=== PATIENT | female | born 1975 | race Caucasian/White ===

== ENCOUNTER 2020-07-04 13:07 | Emergency (ER) | payer SELFPAY ==
[2020-07-04 13:16] VITALS: BP 135/81; PULSE 84; RESP 14; TEMP 36.8; O2SAT 98
--- NOTE | 2020-07-04 13:32 | ED.DENTAL ---
HPI - Dental/Oral General Chief complaint: Dental/Oral Stated complaint: Dental/Ear Time Seen by Provider: 07/04/20 13:28 Source: patient and RN notes reviewed Mode of arrival: ambulatory Limitations: no limitations History of Present Illness HPI Narrative: Patient presents today complaining of right lower dental pain x2 days. This tooth has been broken for some time the tooth is missing. Currently rates her pain 7/10 and has been taking ibuprofen and using Anbesol without much relief. She does not currently have a dentist. MD Complaint: tooth pain Related Data Home Medications Medication Instructions Recorded Confirmed albuterol sulfate 2 puff INHALATION QID PRN 07/04/20 07/04/20 citalopram 20 mg PO DAILY 07/04/20 07/04/20 hydrochlorothiazide 25 mg PO DAILY 07/04/20 07/04/20 Allergies Allergy/AdvReac Type Severity Reaction Status Date / Time Penicillins Allergy Unknown Difficulty Verified 07/04/20 13:25 Breathing Review of Systems Review of Systems: Narrative: CONSTITUTIONAL: Denies body aches, fever, chills, or sweats. EYES: Denies visual changes, redness, or discharge. ENT: Denies rhinorrhea, congestion, sore throat, or otalgia.+ Dental pain CARDIOVASCULAR: Denies chest pain, palpitations, or edema. RESPIRATORY: Denies cough or dyspnea. GASTROINTESTINAL: Denies abdominal pain, nausea, vomiting, or diarrhea. GENITOURINARY: Denies dysuria or hematuria. SKIN: Denies rash, itching, or wounds. MUSCULOSKELETAL: Denies back pain, joint pain, or myalgia. NEUROLOGIC: Denies headache, numbness, tingling, or weakness. PSYCH: Denies depression or anxiety. [facility] Family History Family History (Updated 06/14/16 @ 23:19 by DOCTOR UNKNOWN) Mother Family history of diabetes mellitus in first degree relative Grandparent Diabetes mellitus Social History Social History Alcohol intake: never Comments At time of signature, I have reviewed and agree with nursing past medical, surgical, social and family history unless otherwise noted. Please see nursing chart for further information. There is no relevant family history pertinent to the presenting complaint Exam Narrative: Exam Narrative: GENERAL: Well-appearing, well-nourished, and in no acute distress. HEAD: Normocephalic, atraumatic. EYES: EOMI. No redness or drainage. Conjunctivae normal. ENT: Mucous membranes pink and moist. Tooth #30 is black in color and the posterior half is missing. No obvious periapical abscess noted. NECK: Normal AROM. Supple. No lymphadenopathy. CHEST: No respiratory distress. EXTREMITIES: Normal range of motion. No edema. SKIN: Warm, dry, no rash. Capillary refill normal. Normal skin turgor. NEURO: No focal deficits. Alert and oriented x3. Gait steady. PSYCH: Normal affect. No signs of depression or anxiety. Course Course Emergency Course: Patient states that she is allergic to high-dose penicillin, but has taken amoxicillin in the past without issue Vital Signs Vital signs: Vital Signs Temperature 98.2 F 07/04/20 13:16 Pulse Rate 84 07/04/20 13:16 Respiratory Rate 14 07/04/20 13:16 Blood Pressure 135/81 07/04/20 13:16 Pulse Oximetry 98 07/04/20 13:16 Temperature 98.2 F 07/04/20 13:16 Pulse Rate 84 07/04/20 13:16 Respiratory Rate 14 07/04/20 13:16 Blood Pressure 135/81 07/04/20 13:16 Pulse Oximetry 98 07/04/20 13:16 Reviewed. Pt has been instructed to follow up with her PCP regarding her elevated blood pressure today. MDM - Dental/Oral Differential Diagnosis Differential diagnosis: Likely gingival abscess, dental caries, toothache, dental abscess and fracture of tooth Critical Care Time Critical Care Time Critical Care Time: No Discharge Plan Discharge Clinical Impression: Fracture of tooth Qualifiers: Encounter type: initial encounter Fracture type: open Qualified Code(s): S02.5XXB - Fracture of tooth (traumatic), initial encounter for open fracture Patient D
== END 2020-07-04 13:38 | disposition home or self-care (01) ==
PROVIDERS: Emergency Provider Nurse Practitioner
DX: S02.5XXA Fracture of tooth (traumatic), initial encounter for closed fracture (principal); X58.XXXA Exposure to other specified factors, initial encounter; J45.909 Unspecified asthma, uncomplicated; K21.9 Gastro-esophageal reflux disease without esophagitis; M06.9 Rheumatoid arthritis, unspecified; F41.9 Anxiety disorder, unspecified; F32.9 Major depressive disorder, single episode, unspecified
CPT/HCPCS: 99213; G0463

== ENCOUNTER 2020-11-17 09:40 | Emergency (ER) | payer OTHER, SELFPAY ==
--- NOTE | ~2020-11-17 | CT_ITS ---
EXAMINATION: CTA chest PE protocol DATE: 11/17/2020 11:53 INDICATION: COVID positive. Left-sided chest pain and dyspnea. TECHNIQUE: Computed tomography (CT) pulmonary angiogram of the chest was performed with 100 mL Omnipa que-350 intravenous contrast. Additional 3D reconstructions utilizing coronal maximum intensity proje ction (MIP) were performed. Automated exposure control and iterative reconstruction technique were em ployed. The dose-length product was 789.06 mGy-cm. COMPARISON: None FINDINGS: Excellent contrast opacification of the pulmonary arteries. There is mild streak artifact from dense contrast in the superior vena cava and right atrium. Minimal scattered respiratory motion artifact wh ich does not significantly limit evaluation. No pulmonary embolism. Chronic mild atelectasis/scarring in the small right middle lobe. No pneumonia, pulmonary edema, pleural effusion or pneumothorax. Sma ll calcified right apical nodule consistent with old granulomatous disease. Heart size is normal. No pericardial effusion. Thoracic aorta is normal in caliber with no dissection. No pathologically enlar ged thoracic lymphadenopathy. Visualized upper abdomen is unremarkable. Mild thoracic spondylosis. IMPRESSION: 1. No pulmonary embolism or other acute cardiopulmonary disease. Reviewed, dictated and finalized at location A. OR ENGINEERING TECHNICIAN
--- NOTE | ~2020-11-17 | XR_ITS ---
EXAMINATION: XR chest 2V DATE: 11/17/2020 10:17 INDICATION: Chest pain and left arm pain. TECHNIQUE: PA and lateral views of the chest were obtained. COMPARISON: None FINDINGS: The lungs are clear with no focal airspace opacities, pulmonary edema, pleural effusion or pneumothor ax. The cardiomediastinal silhouette is normal. Mild thoracic spondylosis. IMPRESSION: 1. No acute cardiopulmonary disease. Reviewed, dictated and finalized at location A. TAL ARTIST
--- NOTE | ~2020-11-17 | XR_ITS ---
EXAMINATION: XR shoulder LT min 2V DATE: 11/17/2020 10:47 INDICATION: Left shoulder pain radiating down the left arm TECHNIQUE: AP internally and externally rotated, AP oblique externally rotated and transscapular Y vi ews of the left shoulder were obtained. COMPARISON: None FINDINGS: Normal alignment. No fracture. Glenohumeral joint is normal. Acromioclavicular joint is normal. Smal l amorphous calcifications at the junction of the middle and posterior facets of the greater tuberosi ty consistent with infraspinatus calcific tendinitis. Visualized portions of the lungs are clear. IMPRESSION: Left infraspinatus calcific tendinitis. Reviewed, dictated and finalized at location A. E SORTER
[2020-11-17 09:47] VITALS: BP 152/86; PULSE 97; RESP 18; TEMP 36.2; O2SAT 98
[2020-11-17 09:52] VITALS: BP 139/97; PULSE 94; RESP 15; O2SAT 99
--- NOTE | 2020-11-17 09:52 | ECG_ITS ---
Measurements Intervals Carmen Rate: 80 P: 63 VA: 132 QRS: 37 QRSD: 88 T: 40 QT: 372 QTc: 430 Interpretive Statements SINUS RHYTHM INCOMPLETE RIGHT BUNDLE BRANCH BLOCK BORDERLINE ECG Electronically Signed On 11-17-2020 10:03:25 CATTLE BROKER by Solitario Lam D.O.
--- NOTE | 2020-11-17 09:54 | ED.UPPEXIN ---
HPI - Extremity Injury (Upper) General Chief Complaint: Extremity Injury, Upper Stated Complaint: left chest/ arm pain Time Seen by Provider: 11/17/20 09:54 Source: patient Mode of arrival: ambulatory Limitations: no limitations History of Present Illness HPI narrative: Patient is a 45-year-old female with a history of rheumatoid arthritis and asthma who presents for evaluation of left-sided chest pain, shoulder pain and shortness of breath. Patient states that her pain in her left chest and shoulder began last night while she was out to dinner at a restaurant. She reports some radiation of pain to the back. She has had associated shortness of breath since Covid infection October 23. She was never hospitalized for any of her symptoms are recovered after approximately 11 days time. Patient states she deals with intermittent dyspnea on a daily basis. She denies central chest pain. She does report report that she recently has been getting in and out of her 's truck and thought that could have exacerbated her shoulder pain but did not have pain until last night at dinner. She denies any numbness in her left hand but does report a tingling sensation. The pain radiates into her left arm. No history of sudden cardiac in the family. Positive family history of coronary artery disease. Patient has never had any diagnosed heart problems. She denies current palpitations, no leg or calf edema. Related Data Home Medications Medication Instructions Recorded Confirmed citalopram 20 mg PO DAILY 07/04/20 07/04/20 hydrochlorothiazide 25 mg PO DAILY 07/04/20 07/04/20 buspirone mg 11/17/20 sulfamethoxazole-trimethoprim tablet 11/17/20 Allergies Allergy/AdvReac Type Severity Reaction Status Date / Time Penicillins Allergy Unknown Difficulty Verified 11/17/20 09:49 Breathing Review of Systems Review of Systems: Narrative: CONSTITUTIONAL: Denies fever ENT: Denies rhinorrhea, congestion, sore throat, or otalgia. CARDIOVASCULAR: Reports left-sided chest pain, palpitations RESPIRATORY: Reports dry cough, reports shortness of breath GASTROINTESTINAL: Denies abdominal pain, nausea, vomiting, or diarrhea. GENITOURINARY: Denies dysuria or hematuria. SKIN: Denies rash or itching. MUSCULOSKELETAL: Denies back pain, reports left shoulder pain NEUROLOGIC: Denies headache, numbness, or weakness. [facility] Past Medical History Medical History Asthma Rheumatoid arthritis Surgical History Surgical History H/O tubal ligation H/O: hysterectomy Family History Family History (Updated 06/14/16 @ 23:19 by DOCTOR UNKNOWN) Mother Family history of diabetes mellitus in first degree relative Grandparent Diabetes mellitus Social History Social History Alcohol intake: never Gender identity (if verbalized by the patient): Female Exam Narrative: Exam Narrative: GENERAL: Awake, alert, conversant HEAD: Normocephalic, atraumatic. EYES: PERRLA and EOMI. ENT: Nares clear, no rhinorrhea or epistaxis. Mucous membranes moist. NECK: Supple. No cervical midline tenderness. CHEST: No respiratory distress, breathing even and non labored, mild reproducible left-sided chest wall tenderness HEART: Regular rate, sinus rhythm ABDOMEN:Non distended, non tender EXTREMITIES: Normal range of motion. No edema. Pain with abduction and and internal rotation of the left shoulder without limitation. Intact sensation over the deltoid. Medical Office Administrator strength out of 5. Radial pulse 2+, intact sensation median, ulnar, radial nerve distribution. No deformity or erythema. SKIN: Warm, dry, no rash. NEURO:No focal deficits. Alert and oriented x3 Course Vital Signs Vital signs: Vital Signs Temperature 36.2 C L 11/17/20 09:47 Pulse Rate 97 11/17/20 09:47 Respiratory Rate 18 11/17/20 09:
[2020-11-17] MEDS: ASPIRIN 81 MG CHEWABLE TABLET 324 MG PO (10:09)
[2020-11-17 10:37] LABS: Basophils Absolute Auto 0.1 K/mm3 (0.0-0.1); Basophils Percent Auto 0.5 % (0.2-1.2); Eosinophils Absolute Auto 0.2 K/mm3 (0-0.3); Eosinophils Percent Auto 1.3 % (0-4.4); Hematocrit 39.5 % (37.0-47.0); Hemoglobin 13.4 g/dL (12.0-15.0); Immature Granulocyte Absolute 0.13 K/mm3 (0.00-0.031); Immature Granulocyte Percent A 1.1 % (0-0.5); Lymphocytes Percent Auto 18.5 % (18.3-44.2); Mean Corpuscular HGB Conc 33.9 g/dl (32-36); Mean Corpuscular Hemoglobin 29.6 pg (26-34); Mean Corpuscular Volume 87.4 fl (80-100); Mean Platelet Volume 9.1 fl (7.4-10.4); Monocytes Absolute Auto 0.7 K/mm3 (0.1-0.6); Monocytes Percent Auto 5.7 % (2.6-8.5); Neutrophils Absolute Auto 8.3 K/mm3 (1.3-6.7); Neutrophils Percent Auto 72.9 % (45.5-73.1); Platelet Count Result 353 k/mm3 (150-375); Red Blood Count 4.52 M/mm3 (4.2-5.4); Red Cell Distribution Width 12.9 % (11.5-14.5); White Blood Count 11.4 K/mm3 (4.5-10.0)
[2020-11-17 10:45] LABS: Chloride 105 mmol/L (98-107)
[2020-11-17 10:46] LABS: INR 0.9; Prothrombin Time 12.5 Seconds (11.1-14.7)
[2020-11-17 10:47] LABS: Partial Thromboplastin Time 29.7 SECONDS (22.3-36.8)
[2020-11-17 11:00] LABS: Troponin I < 0.012 ng/mL (0.000-0.034)
[2020-11-17 11:04] LABS: Anion Gap 10 mmol/L (8-16); Blood Urea Nitrogen 14 mg/dL (7-17); Calcium 9.1 mg/dL (8.4-10.2); Carbon Dioxide 23 mmol/L (22-30); Estimated CRCL calculation 106 ml/min; Estimated Glomerular Filt Rate > 60; Glucose 123 mg/dL (65-105); Sodium 138 mmol/L (137-145)
[2020-11-17 11:12] VITALS: BP 124/87; PULSE 80; RESP 18; O2SAT 98
[2020-11-17] MEDS: oxyCODONE/ACETAMINOPHEN (*CRX) 5-325 MG TABLET 1 TABLET PO (11:12)
[2020-11-17 12:38] VITALS: BP 134/72; PULSE 82; RESP 15; O2SAT 100
[2020-11-17 13:21] VITALS: BP 118/70; PULSE 73; RESP 18; O2SAT 98
== END 2020-11-17 13:22 | disposition home or self-care (01) ==
PROVIDERS: Emergency Provider Emergency Medicine
DX: M75.32 Calcific tendinitis of left shoulder (principal); R07.9 Chest pain, unspecified; M06.9 Rheumatoid arthritis, unspecified; J45.909 Unspecified asthma, uncomplicated
CPT/HCPCS: 36415; 71046; 71275; 73030; 80048; 84484; 85025; 85610; 85730; 93005; 99284; A9270; Q9967

== ENCOUNTER 2021-04-04 18:44 | Emergency (ER) | payer OTHER, SELFPAY ==
[2021-04-04 18:49] VITALS: BP 147/68; PULSE 82; RESP 16; TEMP 36.5; O2SAT 98
--- NOTE | 2021-04-04 18:49 | ED.FEMALEGU ---
HPI - Female Genitourinary General Chief complaint: Urogenital-Female Stated complaint: Poss kidney infection Time Seen by Provider: 04/04/21 18:49 Source: patient and RN notes reviewed History of Present Illness HPI Narrative: Patient is a 46-year-old female who presents the urgent care with complaints of a possible UTI. Patient states that she has had a couple UTIs since being diagnosed with Covid, her last one being approximately 2 months ago. Patient states that she has been on Bactrim as well as Macrobid. States that she has been having some right-sided low back pain for approximately 4 days which put her to her knees the other day while at [employer] carrying some water . Patient states that she is also had some nausea today without vomiting. Reports of urinary urgency, suprapubic pressure and radiating right flank pain. Patient denies of any fever, abdominal pain or vomiting. Patient does have a history of kidney stones. Patient states she has been using ibuprofen and Biofreeze patches to the back. No other acute complaints. No acute distress noted. Patient aware of the plan of care. Some parts of this dictation were generated by voice recognition software and may contain typographical and/or grammatical inaccuracies. Related Data Home Medications Medication Instructions Recorded Confirmed citalopram 20 mg PO DAILY 07/04/20 04/04/21 hydrochlorothiazide 25 mg PO DAILY 07/04/20 04/04/21 buspirone 5 mg PO DAILY 11/17/20 04/04/21 albuterol sulfate 2 puff INHALATION Q6H PRN 04/04/21 04/04/21 pantoprazole 40 mg PO DAILY 04/04/21 04/04/21 Allergies Allergy/AdvReac Type Severity Reaction Status Date / Time Penicillins Allergy Unknown Difficulty Verified 04/04/21 18:55 Breathing Review of Systems Review of Systems: Narrative: CONSTITUTIONAL: Denies fever, chills, or sweats. EYES: Denies visual changes, redness, or discharge. ENT: Denies rhinorrhea, congestion, sore throat, or otalgia. CARDIOVASCULAR: Denies chest pain, palpitations, or edema. RESPIRATORY: Denies cough or dyspnea. GASTROINTESTINAL: Reports of nausea without vomiting, diarrhea or abdominal pain GENITOURINARY: Reports of urinary urgency and suprapubic pressure SKIN: Denies rash or itching. MUSCULOSKELETAL: Reports of right sided low back and flank pain NEUROLOGIC: Denies headache, numbness, or weakness. All other systems reviewed are negative, except as documented in HPI. [facility] Past Medical History Medical History Asthma Rheumatoid arthritis Surgical History Surgical History H/O tubal ligation H/O: hysterectomy Family History Family History (Updated 06/14/16 @ 23:19 by DOCTOR UNKNOWN) Mother Family history of diabetes mellitus in first degree relative Grandparent Diabetes mellitus Social History Social History Alcohol intake: never Gender identity (if verbalized by the patient): Female Comments At the time of my signature, I reviewed and agree with the nursing past medical, surgical, social, and family history. There is no relevant family history pertinent to the patient complaint. Exam Narrative: Exam Narrative: GENERAL: This is a well-nourished, well-developed patient, in no apparent distress. HEAD: normocephalic, atraumatic. EYES: PERRL. Sclera clear/white. Vision is grossly intact. EARS: External ears normal NOSE: External nose normal with no obvious nasal discharge, nares without redness, no rhinorrhea. THROAT: Mucous membranes moist NECK: Neck supple, CARDIOVASCULAR: Regular rate and rhythm without murmurs, gallops, or rubs. RESPIRATORY: Clear to auscultation. Breath sounds equal bilaterally. No wheezes, rales, or rhonchi. GASTROINTESTINAL: Abdomen soft, mild suprapubic tenderness,, nondistended. Bowel sounds are active. SKIN: warm, intact with no s
== END 2021-04-04 19:15 | disposition home or self-care (01) ==
PROVIDERS: Emergency Provider Nurse Practitioner Family; PCP Internal Medicine
DX: R35.0 Frequency of micturition (principal); R10.9 Unspecified abdominal pain; J45.909 Unspecified asthma, uncomplicated; M06.9 Rheumatoid arthritis, unspecified; K21.9 Gastro-esophageal reflux disease without esophagitis; F41.9 Anxiety disorder, unspecified; F32.9 Major depressive disorder, single episode, unspecified
CPT/HCPCS: 81003; 99213; G0463

== ENCOUNTER 2021-10-29 17:10 | Emergency (ER) | payer OTHER, SELFPAY ==
--- NOTE | ~2021-10-29 | XR_ITS ---
EXAMINATION: XR chest 2V 10/29/2021 17:45 INDICATION: Chest pain PROCEDURE: 2 view chest COMPARISON: 11/17/2020 FINDINGS: The lungs are clear. The cardiomediastinal silhouette is within normal limits. There are no pleural effusions. There is no pneumothorax suspected. IMPRESSION: 1: NO ACUTE CARDIOPULMONARY DISEASE. Reviewed, dictated and finalized at location A. MEASURER
[2021-10-29 17:18] VITALS: BP 129/75; PULSE 80; RESP 20; TEMP 36.7; O2SAT 97
--- NOTE | 2021-10-29 18:01 | ED.URI ---
HPI - URI/Sore Throat General Chief Complaint: Upper Respiratory Infection Stated Complaint: Chest Congestion Time Seen by Provider: 10/29/21 17:54 Source: patient and RN notes reviewed Mode of arrival: ambulatory Limitations: no limitations History of Present Illness HPI Narrative: Patient presents today complaining of a 3-week history of productive cough, wheezing, intermittent shortness of breath, nasal congestion, sinus pressure, postnasal drip, occasional chills. Denies fever. History of asthma and has been using her nebulizer treatments and Mucinex at home without much relief. 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 She was tested today and was negative. MD elicited complaint: cough and nasal congestion Related Data Home Medications Medication Instructions Recorded Confirmed hydrochlorothiazide 25 mg PO DAILY 07/04/20 10/29/21 buspirone 5 mg PO DAILY 11/17/20 10/29/21 albuterol sulfate 2 puff INHALATION Q6H PRN 04/04/21 10/29/21 budesonide-formoterol [Symbicort] 1 inh INHALATION DAILY 10/29/21 10/29/21 citalopram 40 mg PO DAILY 10/29/21 10/29/21 ergocalciferol (vitamin D2) 1,250 mcg PO [id number] 10/29/21 10/29/21 [Vitamin D2] omeprazole [Prilosec] 40 mg PO DAILY 10/29/21 10/29/21 Allergies Allergy/AdvReac Type Severity Reaction Status Date / Time Penicillins Allergy Intermediate Swelling Verified 10/29/21 17:33 Review of Systems Review of Systems: CONSTITUTIONAL: Denies body aches, fever, or sweats.+ Chills EYES: Denies visual changes, redness, or discharge. ENT: Denies rhinorrhea, sore throat, or otalgia.+ Congestion, postnasal drip, sinus pressure CARDIOVASCULAR: Denies chest pain, palpitations, or edema. RESPIRATORY: + Cough, breath, wheezing GASTROINTESTINAL: Denies abdominal pain, nausea, vomiting, or diarrhea. GENITOURINARY: Denies dysuria or hematuria. SKIN: Denies rash, itching, or wounds. MUSCULOSKELETAL: Denies back pain, joint pain, or myalgia. NEUROLOGIC: Denies headache, numbness, tingling, or weakness. PSYCH: Denies depression or anxiety. PMFSH Past Medical History Medical History Asthma Rheumatoid arthritis Surgical History Surgical History H/O tubal ligation H/O: hysterectomy Family History Family History Mother Family history of diabetes mellitus in first degree relative Grandparent Diabetes mellitus Social History Social History Alcohol intake: never Gender identity (if verbalized by the patient): Female Comments At time of signature, I have reviewed and agree with nursing past medical, surgical, social and family history unless otherwise noted. Please see nursing chart for further information. There is no relevant family history pertinent to the presenting complaint Exam Narrative: GENERAL: Well-appearing, well-nourished, and in no acute distress. HEAD: Normocephalic, atraumatic. EYES: EOMI. No redness or drainage. Conjunctivae normal. ENT: Mucous membranes pink and moist. Nares congested. No rhinorrhea. TMs normal bilaterally. Throat normal. Uvula midline. NECK: Normal AROM. Supple. No lymphadenopathy. CHEST: No respiratory distress. Clear to auscultation. HEART: Regular rate and rhythm. No murmur appreciated. Normal peripheral pulses. EXTREMITIES: Normal range of motion. No edema. SKIN: Warm, dry, no rash. Capillary refill normal. Normal skin turgor. NEURO: No focal deficits. Alert and oriented x3. Gait steady. PSYCH: Normal affect. No signs of depression or anxiety. Course Vital Signs Vital signs: Vital Signs Temperature 98.1 F 10/29/21 17:18 Pulse Rate 80 10/29/21 17:18 Respiratory Rate 20 10/29/21 17:18 Blood Pressure 129/75 10/29/21 17:18 Pulse Oximetry 97 1
== END 2021-10-29 18:10 | disposition home or self-care (01) ==
PROVIDERS: Emergency Provider Nurse Practitioner
DX: J01.90 Acute sinusitis, unspecified (principal); J45.901 Unspecified asthma with (acute) exacerbation
CPT/HCPCS: 71046; 99213; G0463

== ENCOUNTER 2023-11-03 00:08 | Emergency (ER) | payer OTHER, SELFPAY ==
[2023-11-03 00:12] VITALS: BP 144/76; PULSE 73; RESP 16; TEMP 37.2; O2SAT 98
--- NOTE | 2023-11-03 00:51 | PC.NURSE ---
pt called for room, no answer
--- NOTE | 2023-11-03 01:37 | PC.NURSE ---
pt called for room, no answer
== END 2023-11-03 02:12 | disposition left against medical advice (07) ==
LOC: ANHED 02:03
DX: Z53.21 Procedure and treatment not carried out due to patient leaving prior to being seen by health care provider (principal)
CPT/HCPCS: 99199

== ENCOUNTER 2024-05-02 09:48 | Emergency (ER) | payer SELFPAY ==
[2024-05-02 09:54] VITALS: BP 132/74; PULSE 76; RESP 28; TEMP 36.1; O2SAT 97
--- NOTE | 2024-05-02 10:04 | ED.GENADULT ---
HPI - General Adult General Chief complaint: Upper Respiratory Infection Stated complaint: sinus/back pain Time Seen by Provider: 05/02/24 10:04 Source: patient, RN notes reviewed and old records reviewed Mode of arrival: ambulatory Limitations: no limitations History of Present Illness HPI narrative: 49 year old female who presents to [facility] care with complaints of 3 weeks of sinus congestion,sinus pressure, productive cough, headache,some lower back pain with urinary frequency with concern for UTI also starting on Friday 2 days ago. Patient reports that she was treated previously week ago Friday with a Z pack and low dose steroid without any improvement in her symptoms.Patient reports that she has history of asthma denies ay acute dyspnea has used her nebulizer and Inhaler. Patient states that she feels hoarse and he has persistent headache today MD complaint: sinus congestion drainage productive cough, headache back pain with concern Onset (ago): week(s) (initially started 3 weeks ago sinus problems and cough, 2 days for low back pain and frequency of urination.) Severity: moderate Quality: aching and dull Treatments prior to arrival: other (Z pack medrol dose pack, inhaler nebulizer,Flonase, Netti pot, Robitussin Tylenol ) Related Data Home Medications Medication Instructions Recorded Confirmed hydrochlorothiazide 25 mg tablet 25 mg PO DAILY 07/04/20 05/02/24 buspirone 5 mg tablet 5 mg PO DAILY 11/17/20 05/02/24 albuterol sulfate 90 mcg/actuation 2 puff inhalation Q6H PRN 04/04/21 05/02/24 aerosol inhaler Shortness Of Breath Or Wheezing budesonide-formoterol HFA 80 1 inh inhalation DAILY 10/29/21 05/02/24 mcg-4.5 mcg/actuation aerosol inhaler (Symbicort) citalopram 40 mg tablet 40 mg PO DAILY 10/29/21 05/02/24 ergocalciferol (vitamin D2) 1,250 1,250 mcg PO [id number] 10/29/21 05/02/24 mcg (50,000 unit) capsule (Vitamin D2) omeprazole 40 mg capsule,delayed 40 mg PO DAILY 10/29/21 05/02/24 release benzonatate 100 mg capsule mg PO 05/02/24 phentermine 37.5 mg tablet 37.5 mg PO DAILY 05/02/24 05/02/24 Allergies Allergy/AdvReac Type Severity Reaction Status Date / Time Penicillins Allergy Intermediate Swelling Verified 10/29/21 17:33 Review of Systems Review of Systems: CONSTITUTIONAL: Denies fever, chills, or sweats. CARDIOVASCULAR: Denies chest pain, palpitations, or edema. RESPIRATORY: reports cough denies any acute dyspnea., sinus congestion and drainage. GASTROINTESTINAL: Denies abdominal pain, nausea, vomiting, or diarrhea. GENITOURINARY: Reports dysuria, frequency, urgency. Denies flank pain or hematuria. SKIN: Denies rash or itching. MUSCULOSKELETAL: Reports back pain or myalgia. Denies CVA tenderness NEUROLOGIC: Reports headache All systems reviewed & are unremarkable except as noted in HPI and below PMFSH Past Medical History Medical History (Updated 05/03/24 @ 16:23 by Susie Ulloa NP) Anxiety and depression Asthma Fracture of left foot Kidney stone Nasal polyps Panic attacks Rheumatoid arthritis Surgical History Surgical History H/O tubal ligation H/O: hysterectomy S/P left knee arthroscopy Family History Family History Mother Family history of diabetes mellitus in first degree relative Grandparent Diabetes mellitus Social History Social History Alcohol intake: never Gender identity (if verbalized by the patient): Female Comments At time of signature, agree with nursing past medical, surgical, social and family history. There is no relevant family history pertinent to the presenting complaint Exam Narrative: GENERAL: Well-appearing, well-nourished, and in no acute distress. HEAD: Normocephalic, atraumatic. NECK: Supple.no lymphadenopathy CHEST: Clear to auscultation. No respiratory distress
== END 2024-05-02 10:35 | disposition home or self-care (01) ==
PROVIDERS: Emergency Provider Registered Nurse; PCP Hospitalist
DX: J32.9 Chronic sinusitis, unspecified (principal); R05.9 Cough, unspecified; M54.50 Low back pain, unspecified; R35.0 Frequency of micturition; J45.909 Unspecified asthma, uncomplicated; M06.9 Rheumatoid arthritis, unspecified; F41.9 Anxiety disorder, unspecified; F32.A Depression, unspecified
CPT/HCPCS: 81003; 87086; 99213; G0463

== ENCOUNTER 2024-08-17 21:43 | Emergency (ER) | payer OTHER, SELFPAY ==
--- NOTE | ~2024-08-17 | XR_ITS ---
AP and lateral views of the neck CLINICAL HISTORY: Ingested foreign body FINDINGS: No fracture or subluxation seen in the cervical spine. There is advanced degenerative disc narrowing at C5-C6. No prevertebral soft tissues along. Visualized air column unremarkable. No radiop aque foreign body seen. IMPRESSION: No radiopaque foreign body seen. Reviewed, dictated and finalized at [facility].
[2024-08-17 21:47] VITALS: BP 148/84; PULSE 77; RESP 14; TEMP 36.1; O2SAT 98
--- NOTE | 2024-08-18 02:03 | ED.GENADULT ---
HPI - General Adult General Chief complaint: Unspecified Stated complaint: chipped gel fingernail in throat Time Seen by Provider: 08/18/24 01:26 History of Present Illness HPI narrative: 49-year-old female presents to emergency department for foreign body in her throat. Patient states earlier today she was biting her nails that have gel on them when she bit a part of the gel off and swallowed it. She states she has felt a foreign body in her throat since. She denies difficulty breathing or swallowing. States she does not have a foreign body sensation in her chest. She states she attempted to drink at 32 oz of soda and hopes that it would resolve her issue but did not. She denies drooling. Related Data Home Medications Medication Instructions Recorded Confirmed hydrochlorothiazide 25 mg tablet 25 mg PO DAILY 07/04/20 05/02/24 buspirone 5 mg tablet 5 mg PO DAILY 11/17/20 05/02/24 albuterol sulfate 90 mcg/actuation 2 puff inhalation Q6H PRN 04/04/21 05/02/24 aerosol inhaler Shortness Of Breath Or Wheezing budesonide-formoterol HFA 80 1 inh inhalation DAILY 10/29/21 05/02/24 mcg-4.5 mcg/actuation aerosol inhaler (Symbicort) citalopram 40 mg tablet 40 mg PO DAILY 10/29/21 05/02/24 ergocalciferol (vitamin D2) 1,250 1,250 mcg PO [id number] 10/29/21 05/02/24 mcg (50,000 unit) capsule (Vitamin D2) omeprazole 40 mg capsule,delayed 40 mg PO DAILY 10/29/21 05/02/24 release benzonatate 100 mg capsule mg PO 05/02/24 phentermine 37.5 mg tablet 37.5 mg PO DAILY 05/02/24 05/02/24 Allergies Allergy/AdvReac Type Severity Reaction Status Date / Time Penicillins Allergy Intermediate Swelling Verified 08/17/24 21:44 Review of Systems Review of Systems: All systems reviewed & are unremarkable except as noted in HPI and below PMFSH Past Medical History Medical History Anxiety and depression Asthma Fracture of left foot Kidney stone Nasal polyps Panic attacks Rheumatoid arthritis Surgical History Surgical History H/O tubal ligation H/O: hysterectomy S/P left knee arthroscopy Family History Family History Mother Family history of diabetes mellitus in first degree relative Grandparent Diabetes mellitus Social History Social History Alcohol intake: never Gender identity (if verbalized by the patient): Female Exam Narrative: GENERAL: Well-appearing, well-nourished, and in no acute distress. HEAD: Normocephalic, atraumatic. EYES: PERRLA and EOMI. ENT: Nares clear, no rhinorrhea or epistaxis. Mucous membranes moist. No foreign body visualized in the posterior pharynx. Patient is tolerating secretions NECK: Supple. CHEST: Clear to auscultation. No respiratory distress. HEART: Regular rate and rhythm. No murmur heard. Normal peripheral pulses. ABDOMEN: Soft, nontender, nondistended, normal active bowel sounds. EXTREMITIES: Normal range of motion. No edema. SKIN: Warm, dry, no rash. NEURO: No focal deficits. Alert and oriented x3 Course Vital Signs Vital signs: Vital Signs Temperature 97 F L 08/17/24 21:47 Pulse Rate 77 08/17/24 21:47 Respiratory Rate 14 08/17/24 21:47 Blood Pressure 148/84 H 08/17/24 21:47 Pulse Oximetry 98 08/17/24 21:47 Oxygen Delivery Room Air 08/17/24 21:47 Temperature 97 F L 08/17/24 21:47 Pulse Rate 77 08/17/24 21:47 Respiratory Rate 14 08/17/24 21:47 Blood Pressure 148/84 H 08/17/24 21:47 Pulse Oximetry 98 08/17/24 21:47 Oxygen Delivery Room Air 08/17/24 21:47 Medical Decision Making [facility] Narrative Medical decision making narrative: 49-year-old female presents to the emergency department with concerns for foreign body in her throat after she accidentally swallowed please per gel finger nail ear
[2024-08-18 02:16] VITALS: RESP 18; O2SAT 97
[2024-08-18 02:20] VITALS: BP 117/86; PULSE 83; RESP 20; O2SAT 98
== END 2024-08-18 02:22 | disposition home or self-care (01) ==
LOC: ANHED 08-18 02:13
PROVIDERS: Emergency Provider Physician Assistant; PCP Hospitalist
DX: R09.A2 Foreign body sensation, throat (principal); M06.9 Rheumatoid arthritis, unspecified; F41.9 Anxiety disorder, unspecified; F32.A Depression, unspecified; Z87.442 Personal history of urinary calculi; Z90.710 Acquired absence of both cervix and uterus
CPT/HCPCS: 70360; 99283

== ENCOUNTER 2024-11-06 01:02 | Emergency (ER) | payer OTHER, SELFPAY ==
--- NOTE | ~2024-11-06 | XR_ITS ---
EXAMINATION: XR chest 1V portable DATE: 11/06/2024 02:10 INDICATION: Upper respiratory infection. TECHNIQUE: A single frontal view of the chest was obtained. COMPARISON: Chest 2 views 10/29/2021 FINDINGS: There is no pneumonia, pleural effusion, or pneumothorax. The heart size is normal. IMPRESSION: 1. No acute cardiopulmonary disease. Reviewed, dictated and finalized at location A. [facility]
[2024-11-06 01:06] VITALS: BP 153/63; PULSE 96; RESP 15; TEMP 36.4; O2SAT 97
[2024-11-06 01:11] VITALS: RESP 18; O2SAT 97
[2024-11-06 01:13] VITALS: PULSE 100
--- NOTE | 2024-11-06 01:35 | ECG_ITS ---
Test Date: 2024-11-06 01:43:45 Measurements Intervals [place] Rate: 90 P: 69 SD: 136 QRS: 45 QRSD: 85 T: 49 QT: 370 QTc: 454 Interpretive Statements SINUS RHYTHM No previous ECG available for comparison Electronically Signed On 11-06-2024 07:41:46 WASH BOX OPERATOR by Kelli Monahan M.D.
--- NOTE | 2024-11-06 01:35 | PC.NURSE ---
ED MD Quintero verbally tates medication valium order can be IM.
--- NOTE | 2024-11-06 01:37 | ED_ITS ---
HPI - General Adult General Chief complaint: Unspecified Stated complaint: not really sure ; can't calm down, bp high Time Seen by Provider: 11/06/24 01:19 History of Present Illness HPI narrative: this is a 49-year-old female presenting ED with chief complaint of panic attack. Patient says she has been feeling unwell with viral symptoms for the last 3 days. Tonight when she got home she started to have worsening shortness of breath, increased anxiety confusion. she also notes that she has felt warm to touch.She then came to the hospital to be evaluated. When she arrived here she realized that she was having a panic attack. She is denying fevers chills chest pain or difficulty breathing. . No SI HI Related Data Home Medications ?Medication ?Instructions ?Recorded ?Confirmed ?Last Taken ?Type buspirone 5 mg tablet 5 mg PO DAILY 11/17/20 08/24/24 Unknown History albuterol sulfate 90 mcg/actuation 2 puff inhalation Q6H PRN 04/04/21 08/24/24 Unknown History aerosol inhaler Shortness Of Breath Or Wheezing budesonide-formoterol HFA 80 1 inh inhalation DAILY 10/29/21 08/24/24 Unknown History mcg-4.5 mcg/actuation aerosol inhaler (Symbicort) citalopram 40 mg tablet 40 mg PO DAILY 10/29/21 08/24/24 Unknown History ergocalciferol (vitamin D2) 1,250 1,250 mcg PO Q5GVDUR 10/29/21 08/24/24 Unknown History mcg (50,000 unit) capsule (Vitamin D2) Allergies Allergy/AdvReac Type Severity Reaction Status Date / Time Penicillins Allergy Intermediate Swelling Verified 08/24/24 15:16 [facility] Past Medical History Medical History Fracture of left foot Kidney stone Panic attacks Anxiety and depression Nasal polyps Rheumatoid arthritis Asthma Surgical History Surgical History S/P left knee arthroscopy H/O tubal ligation H/O: hysterectomy Family History Family History Mother Family history of diabetes mellitus in first degree relative Grandparent Diabetes mellitus Social History Social History Smoking status: Never smoker Alcohol intake: never Gender identity (if verbalized by the patient): Female Exam Narrative: APPEARANCE: No apparent distress. Head: atraumatic. EYES: EOMI, NOSE: Atraumatic NECK: Trachea midline RESPIRATORY: No increased rate of breathing, scattered rhonchi, CARDIOVASCULAR: slightly tachycardic ABDOMINAL: Non-distended soft nontender MUSCULOSKELETAl: No obvious deformities NEURO: Alert. Moving 4/4 extremities SKIN:: warm to touch PSYCHIATRIC: Normal affect Course Vital Signs Vital signs: Vital Signs Temperature 97.5 F L 11/06/24 01:06 Pulse Rate 96 11/06/24 01:06 Respiratory Rate 15 11/06/24 01:06 Blood Pressure 153/63 H 11/06/24 01:06 Pulse Oximetry 97 11/06/24 01:06 Oxygen Delivery Room Air 11/06/24 01:06 Temperature 97.5 F L 11/06/24 01:06 Pulse Rate 100 11/06/24 01:13 Respiratory Rate 18 11/06/24 01:11 Blood Pressure 153/63 H 11/06/24 01:06 Pulse Oximetry 97 11/06/24 01:11 Oxygen Delivery Room Air 11/06/24 01:06 Medical Decision Making [facility] Narrative Medical decision making narrative: -Course: 49-year-old female presenting with 3 days of respiratory symptoms as well as a panic attack. She received Valium her anxiety is resolved she is now resting comfortably. Chest x-ray showed some mild infiltrates in the right lower lobe and she has scattered rhonchi on exam. patient be prescribed a course of antibiotics to cover pneumonia. She is well appearing with stable vital signs in good candidate for outpatient management. She will be discharged follow-up with her primary care physician. Given return precautions. -DDX includes but is not limited to: Bronchitis, pneumonia, viral syndrome -Co-morbidities complicating care: asthma, anxiety Vital Signs Vital Signs: Vital Signs Temperature 97.5 F L 11/06/24 01:06 Pulse Rate 96 11/06/24 01:06 Respiratory Rate 15 11/06/24 01:06 Blood Pressure 153/63 H 11/06/24 01:06 Pulse Oximetry 97 11/06/24 01:06 Oxygen Delivery Room Air 11/06/24 01:06 Temperature 97.5 F L 11/06/24 01:06 Pulse Rate 100 11/06/24 01:13 Respiratory Rate 18 11/06/24 01:11 Blood Pressure 153/63 H 11/06/24 01:06 Pulse Oximetry 97 11/06/24 01:11 Oxygen Delivery Room Air 11/06/24 01:06 Lab Data Labs: Lab Results 11/06/24 Range/Units 01:44 Influenza A (RT-PCR) Negative (Negative) Influenza B (RT-PCR) Negative (Negative) RSV (RT-PCR) Negative (Negative) SARS-CoV-2 RNA (RT-PCR) Negative (Negative) Discharge Plan Discharge Clinical Impression: Panic attack, Pneumonia Patient Disposition: Home, Self-Care Condition: Stable Instructions: Antibiotic Form, Community Acquired Pneumonia (DC) Additional Instructions: You were seen in the ED respiratory symptoms any panic attack. Please take the antibiotics to cover for pneumonia. Please return if you develop chest pain, difficulty breathing or any new or worsening symptoms. Patient Language: Nepali Prescriptions: New levofloxacin 500 mg tablet 500 mg PO DAILY Qty: 10 0RF No Action citalopram 40 mg tablet 40 mg PO DAILY budesonide-formoterol [Symbicort] 80-4.5 mcg/actuation HFA aerosol inhaler 1 inh INHALATION DAILY ergocalciferol (vitamin D2) [Vitamin D2] 1,250 mcg (50,000 unit) Capsule 1,250 mcg PO [id number] albuterol sulfate [ProAir HFA] 90 mcg/actuation HFA aerosol inhaler 2 puff INHALATION Q4-6H PRN (Reason: shortness of breath or wheezing) Qty: 18 0RF albuterol sulfate 90 mcg/actuation HFA aerosol inhaler 2 puff INHALATION Q6H PRN (Reason: Shortness Of Breath Or Wheezing) omeprazole 40 mg capsule,delayed release(DR/EC) 40 mg PO DAILY Qty: 30 6RF buspirone 5 mg tablet 5 mg PO DAILY Follow-up/Referrals: Kirsty,MD Pillo [Primary Care Provider] -
[2024-11-06] MEDS: diazePAM INJ (*CRX) 10 MG/2 ML SYRINGE 5 MG IV PUSH (01:43)
--- NOTE | 2024-11-06 02:01 | PC.NURSE ---
Valium was given at 0143 IM (1 ml) in left deltoid. RipCode is not allowing me to chart medication administration at this time.
[2024-11-06 02:24] LABS: Influenza A QL RT-PCR Negative (Negative); Influenza B QL RT-PCR Negative (Negative); RSV RNA, RT-PCR Negative (Negative); SARS-CoV-2 RNA PCR Negative (Negative)
[2024-11-06] MEDS: ONDANSETRON HCL ODT 4 MG TABLET PO (03:13)
[2024-11-06 03:20] VITALS: BP 132/57; PULSE 82; RESP 19; O2SAT 98
--- OUTSIDE RECORDS SUMMARY | 2024-11-13 02:14 | XMS_ITS | Data Portability ---
Author Organization [facility] mariam Cande, [facility] IP Address [address] [place] [address] Assessment No assessment recorded. Plan of Treatment Reminders Order Date Submit Date Provider Last Modified By Organization Details Last Modified Time Details Appointments None recorded. Lab None recorded. Referral None recorded. Procedures None recorded. Surgeries None recorded. Imaging None recorded. Medication Orders ipratropium 0.5 mg-albutero l 3 mg (2.5 mg base)/3 mL nebulizatio n soln 2023 024 Not available 4 16:21:19 Solu-Medrol (PF) 125 mg/2 mL solution for injection 2023 024 [email or web address] Not available 4 16:21:20 ipratropium 0.5 mg-albutero l 3 mg (2.5 mg base)/3 mL nebulizatio n soln 2023 024 [place] [facility][id number], [address] [place], [place], [phone], 4 16:22:53 budesonide 0.5 mg/2 mL suspension for nebulizatio n 2023 024 [email or web address] [facility] #[id number], [facility] [place], [place], [phone], 4 16:21:20 prednisone 20 mg tablet 2023 024 [email or web address] [id number], [address], [place], [place], [phone], 16:21:20 Patient TargetsNo targets recorded. Patient Instructions Encounter Date Encounter Id Patient Instructions Last Modified By Organization Details Last Modified Time 05/22/2024 [id number] - Discussed medication regimen. - gave Solu-Medrol 125 mg at clinic. Patient tolerated well. - Discussed that if symptoms gets worse she needs to go to the ER for further evaluation. Discussed the symptoms got worse she would also be likely admitted to the hospital. - She is leaving to return home tomorrow. She lives in [place]. - discuss that she primarily has bronchitis. She has been on 2 antibiotic regimens. No crackling rales at this time. Wheezing noted only. Mild residual wheeze no radiation post nebulizer x2. Patient tolerated well and feels much improved. - RTC for follow up as needed for any concerns. [email or web address] Not available 05/22/2024 16:45:18 Reason for Referral None Reported. Problems Name Problem SNOMED Code Status Onset Date Resolution Date Notes Provider Name and Address Organization Details Recorded Time Cough 56346611 Active 05/22/20 24 Sinus congest ion, Mucus green/y ellow/t hick [facility] 05/22/2024 15:22:04 Problem Notes None recorded. Procedures Surgical History Date Name Laterality Status Provider Name and Address Organization Details Recorded Time 05/22/20 24 Nebulizer tx completed MATTHEW GRIGGS NP [address], [place], [address], [facility] 05/22/2024 16:44:54 Hysterectomy completed Mita Sorto RN [facility] 05/22/2024 15:18:59 Orthopedic Surgery completed Mita Sorto RN [facility] 05/22/2024 15:20:37 Imaging Results None recorded. Procedure Notes None recorded. Medical Equipment None Reported. Allergies No known drug allergies Medications Name Sig Start Date Stop Date Status Note LastModified by Organization Details LastModified Time doxycycline hyclate 100 mg capsule TAKE 1 CAPSULE BY MOUTH TWICE DAILY FOR 10 DAYS active Not Available Not Available No t Available ipratropium 0.5 mg-albuterol 3 mg (2.5 mg base)/3 mL nebulization soln USE 3 ML VIA NEBULIZER EVERY 4 HOURS NEEDED active Not Available Not Available No t Available citalopram 40 mg tablet Take 1 tablet every day by oral route. active Not Available Not Available No t Available azithromycin 250 mg tablet active Not Available Not Available Not Available fluconazole 150 mg tablet TAKE 1 TABLET BY MOUTH ONCE FOR 1 DOSE. MAY REPEAT IN 72 HOURS IF SIGNS/SYMPT OMS PERSIST active Not Available Not Available Not Available albuterol sulfate 1.25 mg/3 mL solution for nebulization Inhale 3 mL 3 times a day by inhalation route. active Not Available Not Available No t Available phenazopyrid ine 200 mg tablet TAKE 1 TABLET BY MOUTH THREE TIMES DAILY NEEDED FOR BLADDER SPASMS FOR UP TO 2 DAYS active Not Available Not Available No t Available prednisone 20 mg tablet Take 3 tablets daily x 3 days. Take 2 tablets daily x 3 days. Take 1 tablet daily x 3 days. active Not Available Not Available No t Available phentermine 37.5 mg tablet TAKE 1 TABLET BY MOUTH EVERY DAY active Not Available Not Available No t Available benzonatate 100 mg capsule TAKE 1 CAPSULE BY MOUTH EVERY MORNING FOR 4 WEEKS NEEDED active Not Available Not Available No t Available omeprazole 20 mg capsule,edgard yed release Take 1 capsule every day by oral route. active Not Available Not Available No t Available budesonide 0.5 mg/2 mL suspension for nebulization INHALE 2 ML TWICE DAILY BY NEBULIZATIO N ROUTE NEEDED active Not Available Not Available No t Available methylpredni solone 4 mg tablets in a dose pack FOLLOW PACKAGE DIRECTIONS active Not Available Not Available N ot Available albuterol sulfate HFA 90 mcg/actuatio n aerosol inhaler Inhale 2 puffs every 4 hours by inhalation route. active Not Available Not Available No t Available ondansetron 4 mg disintegrati ng tablet DISSOLVE 1 TABLET IN MOUTH EVERY 8 HOURS NEEDED FOR NAUSEA FOR VOMITING active Not Available Not Available No t Available doxycycline hyclate 100 mg tablet TAKE 1 TABLET BY MOUTH TWICE DAILY FOR 10 DAYS active Not Available Not Available No t Available nitrofuranto in monohydrate/ macrocrystal s 100 mg capsule TAKE 1 CAPSULE BY MOUTH TWICE DAILY FOR 5 DAYS active Not Available Not Available No t Available Solu-Medrol (PF) 125 mg/2 mL solution for injection Take 125 mg by injection route. 2023 active Not Available Not Available Not Avai lable Vitals Date Recorded Body height Body mass index (BMI) Body weight Body temperature Heart rate Respiratory rate Oxygen saturation Oxygen saturation in Arterial blood by Pulse oximetry Systolic blood pressure Diastolic blood pressure Provider Name and Address Organization Details Last Updated DateTime 4 167.64 cm 38.7 kg/m2 956943. 17 g 97.9 [degF] 83 /min 18 /min 95 % 95 % 129 mm[Hg] 76 mm[Hg] Mita Sorto RN [facility] 4 15:35:55 Social History None recorded. Functional Status None recorded. Mental Status None recorded. Family History Nothing Reported. Medical History No medical history recorded. Gynecological HistoryNo gynecological history recorded. Obstetrics History GPAL:G 0 P 0 0 0 0 Past Encounters Encounter ID Performer Location Encounter Start Date Encounter Closed Date Diagnosis/Indication Diagnosis SNOMED-CT Code Diagnosis ICD10 Code [id number] MATTHEW GRIGGS NP [facility] [facility] [address] [place] [address] 05/22/2024 14:40:47 05/22/2024 16:30:21 Acute bronchitis 35775069 J20.9 Moderate p ersistent asthma 640662401 J45.40 Health Concerns Section Related Observation LastModified by Organization Detai ls LastModified Time None Recorded Concern Status LastModified by Organization Details LastModified Time None Recorded Advance Directives Directive None Recorded Payers Encounter Date Sequence Insurance Name Policy Number Policy Mishra Covered Member ID Mishra Member ID Guarantor Name 05/22/2024 1 *SELF PAY* Rodger Massey Notes Date Note Type Note Provider Name and Address Organization Details Recorded Time 05/22/2024 text/html 49 yo female presents to clinic with c/o SOB, cough, and productive yellow and green sputum. Sx started 3 weeks ago. Tx with Z-thomas, Doxy, Medrol, and Prednisone. She completed Doxy 2 days ago but symptoms persist. She is here visiting. Leaves tomorrow. 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 She does have a PMH of asthma and has been using albuterol QID for 1 week. MATTHEW GRIGGS NP [address], [place], [address], [facility] 05/22/2024 16:45:38 OBGyn Episode No OBEpisode recorded.
--- OUTSIDE RECORDS SUMMARY | 2024-11-13 02:14 | XMS_ITS | Encounter Summary ---
Author Organization [facility] [employer] Care Team Providers Care Lawn And Garden Technician Name Role Phone Jemima Go MD Primary Care Provider [phone] Encounter Details Date Type Department Care Team (Latest Contact Info) Description 11/29/2020 Travel Social History Tobacco Use Types Packs/Day Years Used Date Smoking Tobacco: Never Smokeless Tobacco: Never Alcohol Use Standard Drinks/Week Comments No 0 (1 standard drink = 0.6 oz pur e alcohol) Comments No Sex and Gender Information Value Date Recorded Sex Assigned at Not on file Legal Sex Female 9:11 PM CDT Gender Identity Not on file Sexual Orientation Not on file COVID-19 Exposure Response Date Recorded In the last month, have you been in contact with someone who was confirmed or suspected to have Coronavirus / COVID-19? 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
--- OUTSIDE RECORDS SUMMARY | 2024-11-13 02:14 | XMS_ITS | Encounter Summary ---
Author Organization [facility] Address [address] [place] [address] Phone Care Team Providers Care Provisioning Analyst Name Role Phone Jemima Go MD Primary Care Provider [phone]- [phone] Reason for Visit * Reason Comments Eye Swelling Encounter Details Date Type Department Care Team (Late st Contact Info) Description 11/29/2020 2:47 PM HEALTH COMMISSIONER - 11/29/2020 3:40 PM HEALTH COMMISSIONER Emergency [facility] Emergency [address] [place] [address] Cirilo Jones MD [address] [place] [address] Allergic reaction, initial encounter Discharge Disposition: Discharged to home or Selfcare Social History Tobacco Use Types Packs/Day Years [...] COVID-19? No / Unsure 11/29/2020 2:40 PM HEALTH COMMISSIONER documented as of this encounter Last Filed Vital Signs Vital Sign Reading Time Taken Comments Blood Pressure 153/88 11/29/2020 3:00 PM HEALTH COMMISSIONER Pulse 92 11/29/2020 3:10 PM HEALTH COMMISSIONER Temperature 36.7 ??C (98.1 ??F) 11/29/2020 2:41 PM CS T Respiratory Rate 18 11/29/2020 2:41 PM HEALTH COMMISSIONER Oxygen Saturation 97% 11/29/2020 2:41 PM HEALTH COMMISSIONER Inhaled Oxygen Concentration - - Weight 106.6 kg (235 lb) 11/29/2020 2:41 PM HEALTH COMMISSIONER Height 167.6 cm (5' 6 ) 11/29/2020 2:41 PM HEALTH COMMISSIONER Body Mass Index 37.93 11/29/2020 2:41 PM HEALTH COMMISSIONER documented in this encounter Discharge Instructions * Discharge Instructions* Cirilo Jones MD - 11/29/2020 3:30 PM HEALTH COMMISSIONER You received today's dose of prednisone in the emergency room. Begin taking it tomorrow starting inthe morning with 1 dose a day. You may benefit from allergy testing in the future TH COMMISSIONER TH COMMISSIONER * Attachments The following attachments cannot be sent through Care Everywhere. * Reaction, Medicine: Allergic (Namibian) documented in this encounter Medications at Time of Discharge buPROPion (WELLBUTRIN) 150 MG XL tablet Take 150 mg by mouth daily. 03/04/2018 citalopram (CELEXA) 10 MG Tablet Take 10 mg by mouth daily. 03/04/2018 ergocalciferol (VITAMIN D) 85568 UNIT Capsule Take 1 Cap by mouth. Every 15 days 03/04/2018 omeprazole (PRILOSEC) 20 MG CAPSULE DELAYED RELEASE Take 20 mg by mouth daily. 03/04/2018 ondansetron (ZOFRAN) 4 MG Tablet Take 1 Tab by mouth every 8 hours as needed for Nausea. 10 Tab 03/06/2018 ondansetron (ZOFRAN-ODT) 4 MG TABLET DISPERSIBLE Take 4 mg by mouth every 4 hours as needed. 03/02/2018 predniSONE (DELTASONE) 50 MG Tablet Take 1 Tab by mouth daily. 9 Tab 11/29/2020 QVAR REDIHALER 80 MCG/ACT AEROSOL, BREATH ACTIVATED 03/04/2018 VENTOLIN HFA 108 (90 Base) MCG/ACT Aerosol Solution 12/18/2017 documented as of this encounter ED Notes * Manuel Wheat RN - 11/29/2020 3:37 PM CST Patient discharged. Discharge instructions and patient educational material reviewed with patient; questions and concerns addressed; patient verbalizes understanding, using teach back. Patient was given 1 prescriptions. Patient was informed of the need to follow up with PCP for ongoing care. Patient AMBULATORY TO er exit with a steady gait and self as responsible green party. Pt alert and oriented x 4 with respirations that are even and unlabored at time of discharge. TH COMMISSIONER * Cirilo Jones MD - 11/29/2020 3:26 PM CST Chief Complaint Patient presents with ??? Eye Swelling Lore Massey is a 45 y.o. female who presents to the emergency department complaining of starting with a headache last night. She states she woke this morning the headache continued. She was able to see without difficulty. Pain is moderate. It is throbbing. Nothing makes it better worse. Patientstates at home her blood pressure is elevated at 180/110. I did discuss this at length with her shewas taking a wrist blood pressure cuff but was not keeping the cough at the level of her heart. Patient states she went to work and her blood pressure was also elevated at 1 30/106 but again they usethe wrist blood pressure cuff and did not put at the level of her heart. Patient states about an hour ago she began having swelling around both eyes. Not associated with shortness of breath. No wheezing. Other than the headache no significant symptoms besides slight nausea. Patient states she has ahistory of this in the past but was not seen. At that time she used Benadryl with relief of her symptoms. Patient states she did restart her hydrochlorothiazide yesterday however she had been on thatfor approximately 1 year before getting off of it. She was really only off of it because she was unable to see her physician to get a refill secondary to COVID- 19. He had been off of it for about 3 months. Patient states she did just start taking Symbicort recently. That is a new medicine for her. Does not know of any new exposures otherwise including shampoos, colognes, change in mask brands etc. . Past medical history: Illnesses: Asthma, depression and anxiety Medications: Citalopram, BuSpar, Symbicort and albuterol Allergies: Penicillins Social History: Tobacco: Never smoker Alcohol: Denies Drugs: Denies Family History: Mother: Hypertension and COPD Father: She is not sure and her father had when the patient was about [age] No current facility-administered medications for this encounter. Current Outpatient Medications Medication Sig Dispense Refill ??? buPROPion (WELLBUTRIN) 150 MG XL tablet Take 150 mg by mouth daily. ??? citalopram (CELEXA) 10 MG Tablet Take 10 mg by mouth daily. ??? ergocalciferol (VITAMIN D) 57985 UNIT Capsule Take 1 Cap by mouth. Every 15 days ??? omeprazole (PRILOSEC) 20 MG CAPSULE DELAYED RELEASE Take 20 mg by mouth daily. ??? ondansetron (ZOFRAN) 4 MG Tablet Take 1 Tab by mouth every 8 hours as needed for Nausea. 10 Tab0 ??? ondansetron (ZOFRAN-ODT) 4 MG TABLET DISPERSIBLE Take 4 mg by mouth every 4 hours as needed. ??? predniSONE (DELTASONE) 50 MG Tablet Take 1 Tab by mouth daily. 9 Tab 0 ??? QVAR REDIHALER 80 MCG/ACT AEROSOL, BREATH ACTIVATED ??? VENTOLIN HFA 108 (90 Base) MCG/ACT Aerosol Solution Allergies Allergen Reactions ??? Penicillins Hives and Shortness of Breath only in high dosages Past Medical History Positives Diagnosis Date ??? Anxiety ??? Asthma ??? Depression ??? GERD (gastroesophageal reflux disease) Past Surgical History: Procedure Laterality Date ??? HYSTERECTOMY ??? KNEE SURGERY Social History Socioeconomic History ??? Marital status: Spouse name: Not on file ??? Number of children: Not on file ??? Years of education: Not on file ??? Highest education level: Not on file Occupational History ??? Not on file Social Needs ??? Financial resource strain: Not on file ??? Food insecurity Worry: Not on file Inability: Not on file ??? Transportation needs Medical: Not on file Non-medical: Not on file Tobacco Use ??? Smoking status: Never Smoker ??? Smokeless tobacco: Never Used Substance and Sexual Activity ??? Alcohol use: No ??? Drug use: No ??? Sexual activity: Not on file Lifestyle ??? Physical activity Days per week: Not on file Minutes per session: Not on file ??? Stress: Not on file Relationships ??? Social connections Talks on phone: Not on file Gets together: Not on file Attends yazdanism service: Not on file Active member of club or organization: Not on file Attends meetings of clubs or organizations: Not on file Relationship status: Not on file ??? Intimate partner violence Fear of current or ex partner: Not on file Emotionally abused: Not on file Physically abused: Not on file Forced sexual activity: Not on file Other Topics Concern ??? Not on file Social History Narrative ??? Not on file BP 136/89 Pulse 100 Temp 98.1 ??F (36.7 ??C) (Tympanic) Resp 18 Ht 5' 6 (1.676 m) Wt 235lb (106.6 kg) SpO2 97% BMI 37.93 kg/m?? Review of Systems Constitutional: Negative for activity change, appetite change, chills, diaphoresis, fatigue and fever. HENT: Negative for dental problem, rhinorrhea and sore throat. Eyes: Negative for visual disturbance. Respiratory: Negative for cough, chest tightness, shortness of breath and wheezing. Cardiovascular: Negative for chest pain, palpitations and leg swelling. Gastrointestinal: Positive for nausea. Negative for abdominal pain, constipation, diarrhea and vomiting. Genitourinary: Negative for difficulty urinating, flank pain, hematuria and urgency. Musculoskeletal: Negative for arthralgias, back pain, myalgias, neck pain and neck stiffness. Skin: Negative for color change and rash. Periorbital swelling Allergic/Immunologic: Negative for food allergies. Neurological: Positive for headaches. Negative for dizziness, syncope, weakness, light-headedness and numbness. Psychiatric/Behavioral: Negative for self-injury, sleep disturbance and suicidal ideas. All other systems reviewed and are negative. Physical Exam Vitals signs and nursing note reviewed. Constitutional: General: She is not in acute distress. Appearance: She is well-developed. She is not diaphoretic. HENT: Head: Normocephalic and atraumatic. Right Ear: External ear normal. Left Ear: External ear normal. Nose: Nose normal. Mouth/Throat: Pharynx: No oropharyngeal exudate. Eyes: General: Right eye: No discharge. Left eye: No discharge. Conjunctiva/sclera: Conjunctivae normal. Pupils: Pupils are equal, round, and reactive to light. Neck: Musculoskeletal: Normal range of motion and neck supple. Thyroid: No thyromegaly. Vascular: No JVD. Trachea: No tracheal deviation. Cardiovascular: Rate and Rhythm: Normal rate and regular rhythm. Heart sounds: Normal heart sounds. No murmur. Pulmonary: Effort: Pulmonary effort is normal. No respiratory distress. Breath sounds: Normal breath sounds. No wheezing or rales. Chest: Chest wall: No tenderness. Abdominal: General: Bowel sounds are normal. There is no distension. Palpations: Abdomen is soft. There is no mass. Tenderness: There is no abdominal tenderness. There is no guarding or rebound. Musculoskeletal: Normal range of motion. General: No tenderness. Lymphadenopathy: Cervical: No cervical adenopathy. Skin: General: Skin is warm and dry. Capillary Refill: Capillary refill takes less than 2 seconds. Coloration: Skin is not pale. Findings: No erythema or rash. Comments: Patient has some swelling of her periorbital areas worse medial than lateral and is symmetric. Neurological: General: No focal deficit present. Mental Status: She is alert and oriented to person, place, and time. Cranial Nerves: No cranial nerve deficit. Motor: No abnormal muscle tone. Coordination: Coordination normal. Deep Tendon Reflexes: Reflexes are normal and symmetric. Psychiatric: Mood and Affect: Mood normal. Behavior: Behavior normal. Thought Content: Thought content normal. Procedures Imaging Results None MDM Patient with allergic reaction. Does not appear to be due to her any of her medicines since not or new except for the Symbicort and it is unlikely to be due to that as she has had this in past. Will start the patient on prednisone she will get 9 more days of the prednisone. She can take Benadryl inaddition as needed. Patient may benefit from allergy testing in the future Coding Clinical Impression 1. Allergic reaction, initial encounter The patient remained stable throughout their ED stay. My clinical impression was discussed with thepatient/caregiver. Any labs and radiology results were reviewed. Questions were addressed as completely as possible given the information available at present. The therapeutic plan was discussed, inst ructions were given and the importance of primary care follow up was stressed and encouraged. The patient/caregiver voiced understanding of the plan, indications to return, and the need for follow up. New Medications: New Prescriptions PREDNISONE (DELTASONE) 50 MG TABLET Take 1 Tab by mouth daily. I have advised the patient to follow-up with: Jemima Go MD [address] [place] [address] [facility] [id number] In 1 week Dispostion: Discharge TH COMMISSIONER * Manuel Wheat RN - 11/29/2020 3:20 PM CST Pt medicated per provider orders. Pt educated on intended effects and side effects of medication and verbalized understanding, able to provide teach back of education. TH COMMISSIONER * Manuel Wheat RN - 11/29/2020 3:02 PM CST Pt to Er room 10 w/c/o headache starting at 1999 last night and swelling in both eyes starting 1 hour ago. Pt states that she has had this problem with her eyes approx 1 year ago which was accompanied by a headache at that time. Pt states that her BP was high earlier but is 153/88 at this time. Pt denies respiratory Sx. Pt alert and oriented x 4 with respirations that are even and unlabored. Calllight within reach. TH COMMISSIONER * John Ratliff RN - 11/29/2020 2:45 PM CST Patient to ED with c/o bilateral eye swelling, headache, and htn onset yesterday. She states she was seen by her PCP on friday and started on HCTZ and anti depressant medication at that time. She hasbeen having her symptoms since then but has been worsening today. She has not taken any benadryl orOTC medications. She is AOx4, afebrile. TH COMMISSIONER documented in this encounter Plan of Treatment Not on file documented as of this encounter Visit Diagnoses Diagnosis Allergic reaction, initial encounter- Primary documented in this encounter Administered Medications Inactive Administered Medications - up to 3 most recent administrations Medication Order MAR Action Action Date Dose Rate Site predniSONE (DELTASONE) tablet 60 mg 60 mg, Oral, ONCE, 1 dose, On Fri11/29/20 at 1600 Given 11/29/2020 3:20 PM HEALTH COMMISSIONER 60 mg documented in this encounter Active and Recently Administered Medications Times are shown in HEALTH COMMISSIONER. Scheduled Medication Order 11/27/2020 11/28/2020 11/29/2020 predniSONE (DELTASONE) tablet 60 mg (COMPLETED) 60 mg, Oral, ONCE, 1 dose, On Fri11/29/20 at 1600 1520 (Given - Provid er: Manuel Wheat RN) documented in this encounter Care Teams Provisioning Analyst Relationship Specialty Start Date End Date Jemima Go MD [address] [place] [address] PCP - General Internal Medicine 11/29/20 documented as of this encounter
--- OUTSIDE RECORDS SUMMARY | 2024-11-13 02:14 | XMS_ITS | Clinical Summary ---
Author Organization [facility] Address [address] [place] [address] Phone Care Team Providers Care Automation Sales Manager Name Role Phone Jemima Go MD Primary Care Provider [phone]- [phone] Allergies Active Allergy Reactions Criticality Noted Date Comments Penicillins Hives,Shortness of Breath 11/29/2020 only in high dosages Medications ondansetron (ZOFRAN-ODT) 4 MG TABLET DISPERSIBLE Take 4 mg by mouth every 4 hours as needed. 03/02/2018 Active omeprazole (PRILOSEC) 20 MG CAPSULE DELAYED RELEASE Take 20 mg by mouth daily. 03/04/2018 Active ergocalciferol (VITAMIN D) 81443 UNIT Capsule Take 1 Cap by mouth. Every 15 days 03/04/2018 Active citalopram (CELEXA) 10 MG Tablet Take 10 mg by mouth daily. 03/04/2018 Active buPROPion (WELLBUTRIN) 150 MG XL tablet Take 150 mg by mouth daily. 03/04/2018 Active VENTOLIN HFA 108 (90 Base) MCG/ACT Aerosol Solution 12/18/2017 Active QVAR REDIHALER 80 MCG/ACT AEROSOL, BREATH ACTIVATED 03/04/2018 Active ondansetron (ZOFRAN) 4 MG Tablet Take 1 Tab by mouth every 8 hours as needed for Nausea. 10 Tab 03/06/2018 Active predniSONE (DELTASONE) 50 MG Tablet Take 1 Tab by mouth daily. 9 Tab 11/29/2020 Active Social History Tobacco Use Types Packs/Day Years Used Date Smoking Tobacco: Never Smokeless Tobacco: Never Alcohol Use Standard Drinks/Week Comments No 0 (1 standard drink = 0.6 oz pur e alcohol) Comments No Sex and Gender Information Value Date Recorded Sex Assigned at Not on file Legal Sex Female 9:11 PM CDT Gender Identity Not on file Sexual Orientation Not on file Last Filed Vital Signs Vital Sign Reading Time Taken Comments Blood Pressure 153/88 11/29/2020 3:00 PM FOOD MIXER ASSEMBLER Pulse 92 11/29/2020 3:10 PM FOOD MIXER ASSEMBLER Temperature 36.7 ??C (98.1 ??F) 11/29/2020 2:41 PM CS T Respiratory Rate 18 11/29/2020 2:41 PM FOOD MIXER ASSEMBLER Oxygen Saturation 97% 11/29/2020 2:41 PM FOOD MIXER ASSEMBLER Inhaled Oxygen Concentration - - Weight 106.6 kg (235 lb) 11/29/2020 2:41 PM FOOD MIXER ASSEMBLER Height 167.6 cm (5' 6 ) 11/29/2020 2:41 PM FOOD MIXER ASSEMBLER Body Mass Index 37.93 11/29/2020 2:41 PM FOOD MIXER ASSEMBLER Plan of Treatment Health Maintenance Due Date Last Done Comments Hepatitis C Virus (HCV) Screening 1977 TdaP Immunization 1977 Hepatitis B Immunization (1 of 3 - 19+ 3-dose series) 1996 Discussion re Starting/Frequency of Mammograms 2017 Colonoscopy 2022 Colorectal Cancer Screening 2022 Influenza Immunization (#1) 2024 SARS-COV-2 Immunization ( season) 2024 01/08/2022, 03/24/2021, 01/10/2021 Respiratory Syncytial Virus (RSV) Immunization (Adult) (1 - 1-dose 75+ series) 2052 Meningococcal Immunization (ACWY) Aged Out No longer eligible b ased on patient's age to complete this topic Pneumococcal Immunization Combined Aged Out No longer eligible b ased on patient's age to complete this topic Rotavirus Immunization Aged Out No lo nger eligible based on patient's age to complete this topic Insurance [employer] Care Teams Automation Sales Manager Relationship Specialty Start Date End Date Jemima Go MD [address] [facility] [place] [address] PCP - General Internal Medicine 11/29/20
--- OUTSIDE RECORDS SUMMARY | 2024-11-13 02:16 | XMS_ITS | Encounter Summary ---
Author Organization [facility] Address [address] [place] [address] Care Team Providers Care Core Shaper Sides Name Role Phone Pillo Lofton MD Primary Care Provider [phone] [phone] Reason for Visit * Reason Onset Date Comments COVID-19 EVALUATION 07/27/2024 Encounter Details Date Type Department Care Team (Late st Contact Info) Description 07/27/2024 Nurse Triage [facility] [address] [place] [address] Fozia Rob, RN Social History Tobacco Use Types Packs/Day Years Used Date Smoking Tobacco: Never Smokeless Tobacco: Never Alcohol Use Standard Drinks/Week Comments No 0 (1 standard drink = 0.6 oz pur e alcohol) AUDIT-C Answer Date Recorded Q1: How often do you have a drink containing alc ohol? 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 Tested positive for COVID today. Reports that symptoms started initially in her sinuses and feels they have moved to her chest today. Current symptoms: sinus congestion, chest congestion, yellow nasal drainage, hot flashes, sweating, mild SOB at rest, moderateSOB with exertion, intermittent mild left sided chest pain. Patient reports pain to left side of chest is currently 2/10. Reports that pain comes and goes with breathing, not associated with coughing. Reports that she gets pain to this area every time she has a respiratory infection. Reports some tightness and congestion in her chest as well. Reports feeling mildly SOB at rest, but is noticeably worse with exertion. She has been taking Tylenol and Mucinex for symptoms.She does have a history ofasthma. PCP contacted via secure chat for ED disposition consult. Recommendation from provider:Other: orED; may need imaging to assess for pneumonia. Reviewed recommendations with patient. She is going to go to . Advised patient to make sure location she goes to has xray available. Advised to call back with questions, concerns, follow up. Caller stated understanding. Reason for Disposition Chest pain or pressure (Exception: MILD central chest pain, present only when coughing.) Protocols used: Coronavirus (COVID-19) Diagnosed or [id number] * Telephone Encounter - Tessie Cat RN - 07/27/2024 2:07 PM CDT Regarding: congestion, hot flashes, ear pain, yellow mucus ----- Message from Amber Marti sent at 07/27/2024 2:06 PM CDT ----- Symptom Based Call Chief Complaint(s): congestion, hot flashes, ear pain, yellow mucus Duration: this morning What type of symptom(s) is the patient experiencing? Non-Emergent. Is this a new or reoccurring symptom(s)? New What have you tried to help your symptom(s)? Mucinex, tylenol Why was appointment not scheduled? Appointment availability did not meet the patient's need. Additional Comments: patient tested positive for covid today. Tried to schedule a telemedicine but none were available Does message need to be routed? Yes-Action Needed documented in this encounter Plan of Treatment Not on file documented as of this encounter Visit Diagnoses Not on filedocumented in this encounter Care Teams Core Shaper Sides Relationship Specialty Start Date End Date [place] [address] PCP - General Family Medicine 11/06/21 documented as of this encounter
--- OUTSIDE RECORDS SUMMARY | 2024-11-13 02:16 | XMS_ITS | Referral Summary ---
Author Organization [facility] Address [address] [place] [address] Care Team Providers Care Pest Control Worker Helper Name Role Phone Pillo Moody MD Primary Care Provider [phone] Encounters Date Type Department Care Team Description 11/06/2024 Orders Only [facility] Health Information Management [address] [place] [id number] Scanning, Provider from Last 3 Months Allergies Active Allergy Reactions Criticality Noted Date Comments Penicillins Hives,Shortness of breath,Edema High 03/02/2018 Swelling and difficulty breathing. Medications ergocalciferol (VITAMIN D) 50,000 unit capsule Take 1 capsule (50,000 Units total) by mouth 8 Active amitriptyline (ELAVIL) 50 mg tabletIndications: Moderate episode of recurrent major depressive disorder (HCC) Take 1 tablet (50 mg total) by mouth nightly 30 tablet 1 4 01/28/20 25 Active omeprazole (PriLOSEC) 20 mg capsuleIndications :Gastroesophageal reflux disease, unspecified whether esophagitis present Take 1 capsule (20 mg total) by mouth daily 90 capsule 3 4 01/28/20 25 Active citalopram (CeleXA) 40 mg tabletIndications: Moderate episode of recurrent major depressive disorder (HCC) Take 1 tablet (40 mg total) by mouth daily 90 tablet 3 4 Active budesonide-formote roL (Symbicort) 160-4.5 mcg/actuation inhalerIndications :Bronchospasm Prevention with COPD Inhale 2 puffs 2 (two) times a day 3 each 3 4 01/28/20 25 Active atomoxetine (STRATTERA) 40 mg capsuleIndications :Attention-Deficit Hyperactivity Disorder Take 1 capsule (40 mg total) by mouth daily 30 capsule 4 01/28/20 25 Active albuterol HFA (PROVENTIL HFA,VENTOLIN HFA,PROAIR HFA) 90 mcg/actuation inhalerIndications :Moderate persistent asthma without complication Inhale 2 puffs every 6 (six) hours as needed for wheezing 3 each 4 4 01/28/20 25 Active Active Problems Problem Noted Date Diagnosed Date Attention deficit hyperactiv ity disorder (ADHD), predominantly inattentive type 01/28/2024 Gastroesophageal reflux disease 01/28/2024 Primary osteoarthritis involving multiple joints 12/19/2021 Assessment & Plan (05/07/2022 2:42 PM CDT): Patient is unable to complete some physical therapy due to work schedule; however continues home exercises Patient reports improved range of motion right shoulder Assessment & Plan (12/19/2021 1:10 PM BARTENDER SERVER): Continue with current management, encourage activity; use of tylenol and NSAIDs PRN for pain - Class 2 severe obesity due t o excess calories with serious comorbidity and body mass index (BMI) of 36.0 to 36.9 in adult 12/19/2021 Assessment & Plan (05/09/2023 3:30 PM CDT): Has last 38 lbs, decreased blood pressure Maintaining weight loss Encouraged continued maintenance of weight loss through dietary changes and regular physical activity Assessment & Plan (12/24/2022 9:10 PM BARTENDER SERVER): Has been working on weight loss; cutting back on sugar; maintain regular exercise; using standing work station Assessment & Plan (05/07/2022 2:41 PM CDT): Stable, patient started to make some changes, including writing down everything she eats Patient reports improved sensation of understanding when she is full and does need any further Continue to encourage self reflection on saiety as well as food diaries Assessment & Plan (12/19/2021 1:11 PM BARTENDER SERVER): Not well control, has mildly increase in weight since last visit -now woking on making more mels at home, eating out less -encourage continued dietary changes Hypertension, essential 12/19/2021 Assessment & Plan (05/09/2023 3:29 PM CDT): Stable, well controlled; blood pressure today is low normal; patient reports significant weight loss over the past 6 months; has been working to maintain weight loss Discontinue hydrochlorothiazide 25 mg daily Assessment & Plan (12/24/2022 9:10 PM BARTENDER SERVER): Stable, well controlled; bp at target with no orthostatics Continue HCTZ 25 mg daily, Assessment & Plan (05/07/2022 2:41 PM CDT): Stable, well controlled; blood pressure at target Continue hydrochlorothiazide 25 mg daily Assessment & Plan (12/19/2021 1:13 PM BARTENDER SERVER): Stble, bp at target, continue HCTZ 25 mg daily Moderate episode of recurrent major depressive d isorder 11/06/2021 Assessment & Plan (05/09/2023 3:29 PM CDT): Not well controlled, patient reports decreased motivation energy to accomplish things; feels some days can stay in bed for extended durations Decreased focus and ability to complete task at work Continue citalopram 40 mg daily, amitriptyline 25 mg nightly Start Strattera 40 mg x 14 days, then increase to 80 mg daily Will follow-up in approximately 2 months for response to therapy Assessment & Plan (12/24/2022 9:12 PM BARTENDER SERVER): Stable, improving; improved depression with weight loss Some seasonal change and sterssors related to holidays Continue amitriptyline 25 mg nightly; citalopram 40 mg daily Assessment & Plan (05/07/2022 2:41 PM CDT): Stable, well controlled; patient reports that her moods have improved Continue amitriptyline 25 mg nightly; Celexa 40 mg daily Assessment & Plan (12/19/2021 1:10 PM BARTENDER SERVER): Stable, well contolled; continue Amitriptyline 25 mg nightly for insomnia and daytime anxiety and depression Assessment & Plan (11/06/2021 4:03 PM BARTENDER SERVER): Stable, not well controlled; patient reports worsening symptoms of anxiety depression Patient would like referral to Psychiatry Continue BuSpar 5 mg daily Increase citalopram to 40 mg daily, encourage counseling Will continue to follow-up Start amitriptyline 25 mg nightly for insomnia Acute recurrent frontal sinusitis 11/06/2021 Assessment & Plan (02/25/2022 2:36 PM CDT): Patient continues to have significant sinus congestion drainage; mostly related change in season; patient reports right ear pain and fullness, with noted middle ear effusion noted Will start amoxicillin 875 b.i.d. dosing for days for possible middle ear infection as well as chronic sinusitis Will follow-up in 6-8 weeks; discussed with patient would benefit from further evaluation by ENT for nasal polyposis Moderate persistent asthma without complication 11/06/2021 Assessment & Plan (05/09/2023 3:28 PM CDT): Stable, generally well controlled; no major issues at this time Continue albuterol p.r.n. Continue Symbicort 160-4.52 puffs b.i.d. Assessment & Plan (12/24/2022 9:12 PM BARTENDER SERVER): Stable, well controlled; erare respiratory symptoms; worse in dry heat Continue symbicort 2 puff bid Assessment & Plan (05/07/2022 2:42 PM CDT): Stable, well controlled; patient reports rare exacerbations Continue Symbicort 2 puffs b.i.d., albuterol p.r.n.; Jessica 180 mg daily Assessment & Plan (12/19/2021 1:12 PM BARTENDER SERVER): Stable, not well controlled; continues to have some congestion and mucous production -continue Symbicort 160-4.5 2 puff BID -albuterol PRN -Fexofenadine 180 mg daily Assessment & Plan (11/06/2021 4:03 PM BARTENDER SERVER): Stable, well controlled on Symbicort Continue Symbicort b.i.d. dosing Albuterol p.r.n. Immunizations Name Administration Dates Next Due Influenza, Unspecified 08/17/2023(Deferr ed: Patient Refused),08/17/2022,12/18/2021(Deferred: Patient Refused),11/01/2021,07/18/2021(Deferred: Patient Refused) Social History Tobacco Use Types Packs/Day Years Used Date Smoking Tobacco: Never Smokeless Tobacco: Never Tobacco Cessation:Counseling Given: Not Answered Alcohol Use Standard Drinks/Week Comments No 0 [...] on file Legal Sex Female 6:03 PM BARTENDER SERVER Gender Identity Not on file Sexual Orientation Not on file Last Filed Vital Signs Vital Sign Reading Time Taken Comments Blood Pressure 116/72 01/28/2024 1:54 PM CDT Pulse 90 01/28/2024 1:54 PM CDT Temperature 36.6 ??C (97.9 ??F) 01/28/2024 1:54 PM CD T Respiratory Rate 16 01/28/2024 1:54 PM CDT Oxygen Saturation 97% 01/28/2024 1:54 PM CDT Inhaled Oxygen Concentration - - Weight 106.8 kg (235 lb 6.4 oz) 01/28/2024 1:54 PM CDT Height 167.6 cm (5' 6 ) 01/28/2024 1:54 PM CDT Body Mass Index 37.99 01/28/2024 1:54 PM CDT Plan of Treatment Not on file Procedures Procedure Name Priority Date/Time Associated Diagnosis Comments SCAN - RADIOLOGY/IMAGING 11/06/2024 SCREENING MAMMOGRAM BILATERAL W LULA Schedule Routine, Read Routine (OP Routine) 01/02/2022 4:32 PM BARTENDER SERVER Encounter for screening mammogram for malignant neoplasm of breast from Last 3 Months or Most Recently Relevant to Health Maintenance Results * SCAN - RADIOLOGY/IMAGING (11/06/2024) Anatomical Region Laterality Modality Other us Provider Scanning Final Result * SCREENING MAMMOGRAM BILATERAL W LULA (01/02/2022 4:32 PM BARTENDER SERVER) Anatomical Region Laterality Modality Breast Bilateral Mammography 01/03/2022 11:2 9 AM BARTENDER SERVER Impressions 01/03/2022 11:29 AM BARTENDER SERVER There is no mammographic evidence of malignancy. Routine screening mammography is recommended in 1 year. BI-RADS: 1 - Negative. The patient will be entered into a reminder system with a target due date of 1 year for her next mammogram. Electronically signed by: Mitchell Torres M.D. Narrative 01/03/2022 11:29 AM BARTENDER SERVER EXAMINATION: SCREENING MAMMOGRAM BILATERAL W LULA ORDERING HEALTHCARE PROVIDER: PILLO MOODY HISTORY: New baseline screening mammography. COMPARISON: ??None available. TECHNIQUE: CC and MLO views of the bilateral breasts were obtained with digital technique using breast tomosynthesis with C view. Computer aided detection was utilized. FINDINGS: DENSITY: The tissue of the bilateral breasts is heterogeneously dense, which may obscure small masses. BREASTS: There are no suspicious masses, suspicious calcifications, or other suspicious findings in either breast. Pillo Moody MD IMG MAMMO PROCEDURES Rissa l Result from Last 3 Months or Most Recently Relevant to Health Maintenance Insurance CIGLASHAE IBEW CIGLASHAE GARZA Care Teams Pest Control Worker Helper Relationship Specialty Start Date End [place] [address] PCP - General Family Medicine 11/06/21
--- OUTSIDE RECORDS SUMMARY | 2024-11-13 02:16 | XMS_ITS | Encounter Summary ---
Author Organization [facility] Address [address] [place] [address] Care Team Providers Care Merchandise Planner Name Role Phone Pillo Lofton MD Primary Care Provider [phone] Reason for Visit * Reason Comments Sinus Problem Sinus congestion and drainage for the last 2 weeks, it has gotten worse in the last 6 days, she is now having a cough, sinus pressure, green drainage and she feels it moving to her chest, otc ibuprofen, mucinex and nyquil Encounter Details Date Type Department Care Team (Late st Contact Info) Description 08/20/2023 11:00 AM CDT Office Visit [facility] [address] [place] [address] Meredith Lara, VP BIOLOGY [id number] [facility] [address] [place] [address] Acute bacterial sinusitis (Primary Dx) Social History Tobacco Use Types Packs/Day Years [...] more points, staff should administer the PHQ-9) 6 05/09/2023 Comments No Sex and Gender Information Value Date Recorded Sex Assigned at Not on file Legal Sex Female 6:03 PM IT INFRASTRUCTURE MANAGER Gender Identity Not on file Sexual Orientation Not on file documented as of this encounter Last Filed Vital Signs Vital Sign Reading Time Taken Comments Blood Pressure 122/78 08/20/2023 11:05 AM CDT Pulse 88 08/20/2023 11:05 AM CDT Temperature 36.6 ??C (97.9 ??F) 08/20/2023 11:05 AM C DT Respiratory Rate 16 08/20/2023 11:05 AM CDT Oxygen Saturation 96% 08/20/2023 11:05 AM CDT Inhaled Oxygen Concentration - - Weight 102.1 kg (225 lb) 08/20/2023 11:05 AM CDT Height 167.6 cm (5' 6 ) 08/20/2023 11:05 AM CDT Body Mass Index 36.32 08/20/2023 11:05 AM CDT documented in this encounter Patient Instructions * Patient Instructions* Meredith Lara, VP BIOLOGY - 08/20/2023 11:00 AM CDT If you have no improvement or worsening of your symptoms, please follow up with your Primary Care Provider, [facility] Care and or Emergency Room. I strive to provide you with EXCELLENT service. You may receive a survey after your visit today. If you cannot rate your experience as EXCELLENT, please let us know how we can improve and better meet your needs. Thank you for choosing [facility]! It was my pleasure to see you today, I hope you feel better soon! Meredith Lara FARM DEMONSTRATOR OTC Medication Recommendations: You can use acetaminophen (Tylenol) or ibuprofen (Motrin) for fever or sore throat. Sudafed or pseudoephedrine may decrease sinus congestion. Do not use if you have a history of Hypertension (High Blood pressure). Mucinex for chest congestion. Flonase for runny nose/ear pressure/post nasal drip. Dayquil/Delsym for cough. (Coricidin HBP for cough if hypertensive). Claritin/Zyrtec for post nasal drip/drainage. Home Recommendations: Encourage fluids. Get plenty of rest You might use a cool mist humidifier/vaporizer in your room. Sleeping in a more upright position can be helpful. For infants, the nose can be cleared by using saline nose drops and suctioning with nasal bulb suction. Frequent suctioning can be irritating to infants and is best performed before feedings. Netipot or sinus rinses may be helpful for adults. Call your doctor or return to the emergency department if worse or: 1. Breathing trouble occurs. 2. Color is pale, bluish, or tarango. 3. Child is weak or too sleepy. 4. No urination occurs in 12 hours. 5. Fever lasts for more than 2 days. * Attachments The following attachments cannot be sent through Care Everywhere. * Sinusitis (AfterCare(R) Instructions(ER/ED)) (Iraqi) documented in this encounter Ordered Prescriptions Prescription Sig Dispense Quantity Refills Last Filled Start Date End Date predniSONE (DELTASONE) 20 mg tabletIndications: Acute bacterial sinusitis Take 2 tablets (40 mg) by mouth daily for 5 days 10 tablet 08/20/2023 3 doxycycline (VIBRAMYCIN) 100 mg capsuleIndications :Acute bacterial sinusitis Take 1 tablet/capsul e (100 mg total) by mouth 2 (two) times a day for 10 days 20 tablet/capsule 08/20/2023 3 documented in this encounter Progress Notes * Meredith Lara NP - 08/20/2023 11:00 AM CDT Images from the original note were not included. Subjective/Objective Patient ID: Lore Massey is a 48 y.o. female. Chief Complaint Sinus Problem (Sinus congestion and drainage for the last 2 weeks, it has gotten worse in the last 6 days, she is now having a cough, sinus pressure, green drainage and she feels it moving to her chest, otc ibuprofen, mucinex and nyquil) 48 year old female patient presents today with complaints of sinus pressure, nasal congestion, and green nasal drainage x 2 weeks. Patient also reports chest congestion x 3 days. Patient reports mildshortness of breath. No chest pain. OTC Mucinex, Flonase, Ibuprofen. Patient reports subjective fever. Patient has a history of asthma, is on Flovent. Has also been requiring use of her Albuterol BID, which is new. Sinus Problem Review of Systems All other systems reviewed and are negative. Physical Exam Vitals reviewed. Constitutional: General: She is not in acute distress. Appearance: Normal appearance. She is well-developed. She is not ill-appearing. HENT: Head: Normocephalic. Right Ear: Tympanic membrane, ear canal and external ear normal. Left Ear: Tympanic membrane, ear canal and external ear normal. Nose: No congestion or rhinorrhea. Right Turbinates: Enlarged. Left Turbinates: Enlarged. Right Sinus: Maxillary sinus tenderness and frontal sinus tenderness present. Left Sinus: Maxillary sinus tenderness and frontal sinus tenderness present. Mouth/Throat: Lips: Golinda. Mouth: Mucous membranes are moist. Pharynx: Oropharynx is clear. Eyes: General: Right eye: No discharge. Left eye: No discharge. Conjunctiva/sclera: Conjunctivae normal. Cardiovascular: Rate and Rhythm: Normal rate and regular rhythm. Pulses: Normal pulses. Heart sounds: Normal heart sounds. Pulmonary: Effort: Pulmonary effort is normal. No respiratory distress. Breath sounds: Normal breath sounds and air entry. No wheezing. Abdominal: Tenderness: There is no abdominal tenderness. Musculoskeletal: General: Normal range of motion. Cervical back: Neck supple. Lymphadenopathy: Head: Right side of head: No tonsillar adenopathy. Left side of head: No tonsillar adenopathy. Cervical: No cervical adenopathy. Skin: General: Skin is warm and dry. Findings: No rash. Neurological: Mental Status: She is alert and oriented to person, place, and time. Mental status is at baseline. Psychiatric: Attention and Perception: Attention normal. Mood and Affect: Mood normal. Behavior: Behavior normal. Behavior is cooperative. Thought Content: Thought content normal. Judgment: Judgment normal. Vitals: 08/20/23 1105 BP: 122/78 Pulse: 88 Resp: 16 Temp: 36.6 ??C (97.9 ??F) TempSrc: Temporal SpO2: 96% Weight: 102.1 kg (225 lb) Height: 167.6 cm (5' 6 ) No results found. Past Medical History: Diagnosis Date Anxiety Asthma Depression Hypertension, essential 12/19/2021 Primary osteoarthritis involving multiple joints 12/19/2021 Current Outpatient Medications: albuterol HFA (PROVENTIL HFA,VENTOLIN HFA,PROAIR HFA) 90 mcg/actuation inhaler, Inhale 2 puffs every 6 (six) hours as needed for wheezing, Disp: 3 each, Rfl: 4 amitriptyline (ELAVIL) 25 mg tablet, Take 1 tablet by mouth nightly, Disp: 90 tablet, Rfl: 0 atomoxetine (STRATTERA) 80 mg capsule, Take 1 capsule (80 mg total) by mouth daily, Disp: 90 capsule, Rfl: 1 busPIRone (BUSPAR) 5 mg tablet, Take 1 tablet (5 mg total) by mouth 3 (three) times a day, Disp: , Rfl: citalopram (CeleXA) 40 mg tablet, Take 1 tablet by mouth once daily, Disp: 90 tablet, Rfl: 0 ergocalciferol (VITAMIN D) 50,000 unit capsule, Take 1 capsule (50,000 Units total) by mouth, Disp:, Rfl: omeprazole (PriLOSEC) 20 mg capsule, Take 1 capsule (20 mg total) by mouth daily, Disp: , Rfl: ondansetron ODT (ZOFRAN-ODT) 4 mg disintegrating tablet, Take 1 tablet (4 mg total) by mouth every 8 (eight) hours as needed for nausea or vomiting, Disp: 20 tablet, Rfl: 0 atomoxetine (STRATTERA) 40 mg capsule, Take 1 capsule (40 mg total) by mouth daily for 14 days, Disp: 14 capsule, Rfl: 0 budesonide-formoteroL (Symbicort) 160-4.5 mcg/actuation inhaler, Inhale 2 puffs 2 (two) times a day, Disp: 3 each, Rfl: 3 doxycycline (VIBRAMYCIN) 100 mg capsule, Take 1 tablet/capsule (100 mg total) by mouth 2 (two) times a day for 10 days, Disp: 20 tablet/capsule, Rfl: 0 predniSONE (DELTASONE) 20 mg tablet, Take 2 tablets (40 mg) by mouth daily for 5 days, Disp: 10 tablet, Rfl: 0 Allergies Allergen Reactions Penicillins Hives, Shortness of breath and Edema Swelling and difficulty breathing. Social History Tobacco Use Smoking status: Never Smokeless tobacco: Never Substance and Sexual Activity Drug use: No Sexual activity: Yes Alcohol Use: Not At Risk (05/09/2023) AUDIT-C Frequency of Alcohol Consumption: Never Average Number of Drinks: Not on file Frequency of Binge Drinking: Not on file Past Surgical History: Procedure Laterality Date HYSTERECTOMY KNEE DEBRIDEMENT TUBAL LIGATION Procedures Assessment/Plan No results found for this or any previous visit (from the past 4 hour(s)). Diagnoses and all orders for this visit: Acute bacterial sinusitis (Primary) - doxycycline (VIBRAMYCIN) 100 mg capsule; Take 1 tablet/capsule (100 mg total) by mouth 2 (two) times a day for 10 days - predniSONE (DELTASONE) 20 mg tablet; Take 2 tablets (40 mg) by mouth daily for 5 days Patient appears in no distress. Patient has been requiring to use her albuterol inhaler more than usual. Concern for possible mild exacerbation of her asthma. We will give patient prednisone for this. Patient has also had sinusitis symptoms which are worsening in condition over the last 3 days. Likely bacterial source due to length of time. Will give patient doxycycline. Patient Education: OTC Medication Recommendations: You can use acetaminophen (Tylenol) or ibuprofen (Motrin) for fever or sore throat. Sudafed or pseudoephedrine may decrease sinus congestion. Do not use if you have a history of Hypertension (High Blood pressure). Mucinex for chest congestion. Flonase for runny nose/ear pressure/post nasal drip. Dayquil/Delsym for cough. (Coricidin HBP for cough if hypertensive). Claritin/Zyrtec for post nasal drip/drainage. Home Recommendations: Encourage fluids. Get plenty of rest You might use a cool mist humidifier/vaporizer in your room. Sleeping in a more upright position can be helpful. For infants, the nose can be cleared by using saline nose drops and suctioning with nasal bulb suction. Frequent suctioning can be irritating to infants and is best performed before feedings. Netipot or sinus rinses may be helpful for adults. Call your doctor or return to the emergency department if worse or: 1. Breathing trouble occurs. 2. Color is pale, bluish, or tarango. 3. Child is weak or too sleepy. 4. No urination occurs in 12 hours. 5. Fever lasts for more than 2 days. Disposition Treatment plan including expectations, follow up, and return precautions discussed with patient/parent, verbalizes understanding. Medication dosage, use, and potential adverse reactions discussed with patient/parent. Advised to follow up with PCP if symptoms do not resolve as expected or sooner if condition worsens. Signs/symptoms warranting ER evaluation reviewed. Patient and/or guardian was given an opportunity to ask questions, questions answered. Meredith Lara NP documented in this encounter Plan of Treatment Not on file documented as of this encounter Visit Diagnoses Diagnosis Acute bacterial sinusitis- Primary Acute sinusitis, unspecified documented in this encounter Care Teams Merchandise Planner Relationship Specialty Start Date End Date Pillo Lofton MD [address] [place] [address] PCP - General Family Medicine 11/06/21 documented as of this encounter
--- OUTSIDE RECORDS SUMMARY | 2024-11-13 02:16 | XMS_ITS | Clinical Summary ---
Author Organization [facility] Address [address] [place] [address] Care Team Providers Care Honeycomb Blanket Maker Name Role Phone Pillo Moody MD Primary Care Provider [phone] Allergies Active Allergy Reactions Criticality Noted Date [...] shoulder Assessment & Plan (12/19/2021 1:10 PM ONLINE ADVERTISING MANAGER): Continue with current management, encourage activity; use [...] activity Assessment & Plan (12/24/2022 9:10 PM ONLINE ADVERTISING MANAGER): Has been working on weight loss; cutting [...] diaries Assessment & Plan (12/19/2021 1:11 PM ONLINE ADVERTISING MANAGER): Not well control, has mildly increase in [...] daily Assessment & Plan (12/24/2022 9:10 PM ONLINE ADVERTISING MANAGER): Stable, well controlled; bp at target with no orthostatics Continue HCTZ 25 mg daily, Assessment & Plan (05/07/2022 2:41 PM CDT): Stable, well controlled; blood pressure at target Continue hydrochlorothiazide 25 mg daily Assessment & Plan (12/19/2021 1:13 PM ONLINE ADVERTISING MANAGER): Stble, bp at target, continue HCTZ 25 [...] therapy Assessment & Plan (12/24/2022 9:12 PM ONLINE ADVERTISING MANAGER): Stable, improving; improved depression with weight loss Some seasonal change and sterssors related to holidays Continue amitriptyline 25 mg nightly; citalopram 40 mg daily Assessment & Plan (05/07/2022 2:41 PM CDT): Stable, well controlled; patient reports that her moods have improved Continue amitriptyline 25 mg nightly; Celexa 40 mg daily Assessment & Plan (12/19/2021 1:10 PM ONLINE ADVERTISING MANAGER): Stable, well contolled; continue Amitriptyline 25 mg nightly for insomnia and daytime anxiety and depression Assessment & Plan (11/06/2021 4:03 PM ONLINE ADVERTISING MANAGER): Stable, not well controlled; patient reports worsening [...] b.i.d. Assessment & Plan (12/24/2022 9:12 PM ONLINE ADVERTISING MANAGER): Stable, well controlled; erare respiratory symptoms; worse in dry heat Continue symbicort 2 puff bid Assessment & Plan (05/07/2022 2:42 PM CDT): Stable, well controlled; patient reports rare exacerbations Continue Symbicort 2 puffs b.i.d., albuterol p.r.n.; Jessica 180 mg daily Assessment & Plan (12/19/2021 1:12 PM ONLINE ADVERTISING MANAGER): Stable, not well controlled; continues to have some congestion and mucous production -continue Symbicort 160-4.5 2 puff BID -albuterol PRN -Fexofenadine 180 mg daily Assessment & Plan (11/06/2021 4:03 PM ONLINE ADVERTISING MANAGER): Stable, well controlled on Symbicort Continue Symbicort b.i.d. dosing Albuterol p.r.n. Encounters Date Type Department Care Team Description 11/06/2024 Orders Only [facility] Health Information Management [address] [place] [id number] Scanning, Provider from Last 3 Months Immunizations Name Administration Dates Next Due Influenza, Unspecified 08/17/2023(Deferr ed: Patient Refused),08/17/2022,12/18/2021(Deferred: Patient Refused),11/01/2021,07/18/2021(Deferred: Patient Refused) Surgical History Surgery Date Site/Laterality Comments TUBAL LIGATION KNEE DEBRIDEMENT HYSTERECTOMY Medical History Medical History Date Comments Asthma Anxiety Depression Primary osteoarthritis involving multiple joints 12/19/2021 Hypertension, essential 12/19/2021 Family History Medical History Relation Name Comments Hypertension Brother No Known Problems Father Diabetes Mother Hypertension Mother Rheum arthritis Mother Relation Name Status Comments Brother Alive Father Mother Alive Social History Tobacco Use Types Packs/Day Years [...] on file Legal Sex Female 6:03 PM ONLINE ADVERTISING MANAGER Gender Identity Not on file Sexual Orientation Not on file Obstetrics History Para Term AB IAB SAB Ectopic Multiple Livin g Live Births 4 3 3 Date Outcome GA Total Labor Labor/2nd/3rd Weight Sex Type Anes PTL Sandra A1 A5 Name Clin Term Term Term Last Filed Vital Signs Vital Sign Reading [...] 01/28/2024 1:54 PM CDT Plan of Treatment Health Maintenance Due Date Last Done Comments Colon Cancer Screening-DNA Stool 1977 Hepatitis C Screening 1977 DTaP/Tdap/Td Vaccine (1 - Tdap) 1988 Hepatitis B Screening 1995 Regular Well Visit/Exam 18-64 1995 Breast Cancer Screening-Mammogram 01/02/2023 01/02/2022 Influenza Vaccine (#1) 2024 08/17/2022, 2020 Pneumococcal vaccine <65 (1 of 2 - PCV) 01/12/2025 Postponed from 1983 (Patient declined, but will receive in the future) Depression Screening 01/27/2025 01/28/2024, 05/09/2023, 05/09/2023, Additional history exists Covid-19 Vaccine Discontinued 01/08/2022, 06/2021, 01/10/2021 Procedures Procedure Name Priority Date/Time Associated Diagnosis Comments SCAN - RADIOLOGY/IMAGING 11/06/2024 SCREENING MAMMOGRAM BILATERAL W LULA Schedule Routine, Read Routine (OP Routine) 01/02/2022 4:32 PM ONLINE ADVERTISING MANAGER Encounter for screening mammogram for malignant neoplasm of breast from Last 3 Months or Most Recently Relevant to Health Maintenance Results * SCAN - RADIOLOGY/IMAGING (11/06/2024) Anatomical Region Laterality Modality Other us Provider Scanning Final Result * SCREENING MAMMOGRAM BILATERAL W LULA (01/02/2022 4:32 PM ONLINE ADVERTISING MANAGER) Anatomical Region Laterality Modality Breast Bilateral Mammography 01/03/2022 11:2 9 AM ONLINE ADVERTISING MANAGER Impressions 01/03/2022 11:29 AM ONLINE ADVERTISING MANAGER There is no mammographic evidence of malignancy. Routine screening mammography is recommended in 1 year. BI-RADS: 1 - Negative. The patient will be entered into a reminder system with a target due date of 1 year for her next mammogram. Electronically signed by: Mitchell Torres M.D. Narrative 01/03/2022 11:29 AM ONLINE ADVERTISING MANAGER EXAMINATION: SCREENING MAMMOGRAM BILATERAL W LULA ORDERING [...] or other suspicious findings in either breast. us Pillo Moody MD IMG MAMMO PROCEDURES Rissa l Result from Last 3 Months or Most Recently Relevant to Health Maintenance Insurance [place] [place] [id number] [facility] Care Teams Honeycomb Blanket Maker Relationship Specialty Start Date End Date Pillo Moody MD [address] [place] [address] PCP - General Family Medicine 11/06/21
--- OUTSIDE RECORDS SUMMARY | 2024-11-13 02:16 | XMS_ITS | Encounter Summary ---
Author Organization [facility] Address [address] [place] [address] Care Team Providers Care Sales Representative Groceries Name Role Phone Pillo Lofton MD Primary Care Provider [phone] Reason for Visit * Reason Comments Annual Exam Patient here for mina ual exam, patient states that she sprained her knee other day and she has had trouble going up and down stairs. Pt also states she has sinus infection going on and has cause abscess near front teeth. Encounter Details Date Type Department Care Team (Late st Contact Info) Description 01/28/2024 2:00 PM CDT Office Visit [facility] [address] [address] Nelly Garner NP [address] [place] [address] Acute pain of right knee (Primary Dx); Due for fasting blood test; Dental abscess; Moderate persistent asthma without complication; Moderate episode of recurrent major depressive disorder (HCC); Attention deficit hyperactivity disorder (ADHD), predominantly inattentive type; Gastroesophageal reflux disease, unspecified whether esophagitis present; Fatigue, unspecified type Social History Tobacco Use Types Packs/Day Years [...] on file 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 Sex 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 Gender Identity Not on file Sexual Orientation [...] Mass Index 37.99 01/28/2024 1:54 PM CDT documented in this encounter Ordered Prescriptions Prescription Sig Dispense Quantity Refills Last Filled Start Date End Date albuterol HFA (PROVENTIL HFA,VENTOLIN HFA,PROAIR HFA) 90 mcg/actuation inhalerIndications: Moderate persistent asthma without complication Inhale 2 puffs every 6 (six) hours as needed for wheezing 3 each 4 01/28/2024 5 atomoxetine (STRATTERA) 40 mg capsuleIndications: Attention-Deficit Hyperactivity Disorder Take 1 capsule (40 mg total) by mouth daily 30 capsule 01/28/2024 5 budesonide-formoter oL (Symbicort) 160-4.5 mcg/actuation inhalerIndications: Bronchospasm Prevention with COPD Inhale 2 puffs 2 (two) times a day 3 each 3 01/28/2024 5 citalopram (CeleXA) 40 mg tabletIndications:M oderate episode of recurrent major depressive disorder (HCC) Take 1 tablet (40 mg total) by mouth daily 90 tablet 3 01/28/2024 omeprazole (PriLOSEC) 20 mg capsuleIndications: Gastroesophageal reflux disease, unspecified whether esophagitis present Take 1 capsule (20 mg total) by mouth daily 90 capsule 3 01/28/2024 5 amitriptyline (ELAVIL) 50 mg tabletIndications:M oderate episode of recurrent major depressive disorder (HCC) Take 1 tablet (50 mg total) by mouth nightly 30 tablet 1 01/28/2024 5 doxycycline (VIBRAMYCIN) 100 mg capsuleIndications: Dental abscess,Gastroesoph ageal reflux disease, unspecified whether esophagitis present Take 1 tablet/capsule (100 mg total) by mouth 2 (two) times a day for 10 days 20 tablet/capsule 01/28/2024 4 documented in this encounter Progress Notes * Nelly Garner, GABY - 01/28/2024 2:00 PM CDT Images from the original note were not included. Patient ID: Lore Massey is a 49 y.o. female Chief Complaint. Chief Complaint Patient presents with Annual Exam Patient here for annual exam, patient states that she sprained her knee other day and she has had trouble going up and down stairs. Pt also states she has sinus infection going on and has cause abscess near front teeth. HPI: Lore Massey presents today to discuss her right knee pain and ongoing sinus infection thathas caused a dental abscess. She will call to reschedule her annual exam. Past Medical History: Diagnosis Date Anxiety Asthma Depression Hypertension, essential 12/19/2021 Primary osteoarthritis involving multiple joints 12/19/2021 Past Surgical History: Procedure Laterality Date HYSTERECTOMY KNEE DEBRIDEMENT TUBAL LIGATION HOME MEDICATIONS : ergocalciferol (VITAMIN D) 50,000 unit capsule albuterol HFA (PROVENTIL HFA,VENTOLIN HFA,PROAIR HFA) 90 mcg/actuation inhaler amitriptyline (ELAVIL) 25 mg tablet citalopram (CeleXA) 40 mg tablet omeprazole (PriLOSEC) 20 mg capsule ondansetron ODT (ZOFRAN-ODT) 4 mg disintegrating tablet albuterol HFA (PROVENTIL HFA,VENTOLIN HFA,PROAIR HFA) 90 mcg/actuation inhaler amitriptyline (ELAVIL) 50 mg tablet atomoxetine (STRATTERA) 40 mg capsule budesonide-formoteroL (Symbicort) 160-4.5 mcg/actuation inhaler citalopram (CeleXA) 40 mg tablet doxycycline (VIBRAMYCIN) 100 mg capsule omeprazole (PriLOSEC) 20 mg capsule atomoxetine (STRATTERA) 40 mg capsule atomoxetine (STRATTERA) 80 mg capsule budesonide-formoteroL (Symbicort) 160-4.5 mcg/actuation inhaler busPIRone (BUSPAR) 5 mg tablet Allergies Allergen Reactions Penicillins Hives, Shortness of breath and Edema Swelling and difficulty breathing. Social History Tobacco Use Smoking status: Never Smokeless tobacco: Never Substance and Sexual Activity Drug use: No Sexual activity: Yes Alcohol Use: Not At Risk (05/09/2023) AUDIT-C Frequency of Alcohol Consumption: Never Average Number of Drinks: Not on file Frequency of Binge Drinking: Not on file Family History Problem Relation Age of Onset Hypertension Mother Diabetes Mother Rheum arthritis Mother No Known Problems Father Hypertension Brother Review of Systems: Review of Systems Constitutional: Negative for chills, fatigue and fever. HENT: Negative for congestion, postnasal drip, rhinorrhea and sore throat. Respiratory: Negative for cough and shortness of breath. Gastrointestinal: Negative for nausea and vomiting. Musculoskeletal: Positive for arthralgias. Negative for myalgias. Neurological: Negative for headaches. Vitals: 01/28/24 1354 BP: 116/72 BP Location: Right arm Patient Position: Sitting Pulse: 90 Resp: 16 Temp: 36.6 ??C (97.9 ??F) TempSrc: Temporal SpO2: 97% Weight: 106.8 kg (235 lb 6.4 oz) Height: 167.6 cm (5' 6 ) Physical Exam: Physical Exam Vitals reviewed. Constitutional: Appearance: Normal appearance. She is not ill-appearing. HENT: Head: Normocephalic. Mouth/Throat: Pharynx: Oropharynx is clear. Cardiovascular: Rate and Rhythm: Normal rate. Pulmonary: Effort: Pulmonary effort is normal. Breath sounds: Normal breath sounds. Musculoskeletal: General: Normal range of motion. Right knee: Crepitus present. Tenderness present over the lateral joint line. Skin: General: Skin is warm and dry. Neurological: Mental Status: She is alert and oriented to person, place, and time. Mental status is at baseline. Psychiatric: Mood and Affect: Mood normal. Behavior: Behavior normal. Thought Content: Thought content normal. Judgment: Judgment normal. Assessment/Plan Diagnoses and all orders for this visit: Acute pain of right knee (Primary) - XR Knee Right 4+ Vw; Future Due for fasting blood test - Lipid panel; Future - CBC with auto differential; Future - Comprehensive metabolic panel; Future Dental abscess - doxycycline (VIBRAMYCIN) 100 mg capsule; Take 1 tablet/capsule (100 mg total) by mouth 2 (two) times a day for 10 days Moderate persistent asthma without complication - budesonide-formoteroL (Symbicort) 160-4.5 mcg/actuation inhaler; Inhale 2 puffs 2 (two) times a day - albuterol HFA (PROVENTIL HFA,VENTOLIN HFA,PROAIR HFA) 90 mcg/actuation inhaler; Inhale 2 puffs every 6 (six) hours as needed for wheezing Moderate episode of recurrent major depressive disorder (HCC) - amitriptyline (ELAVIL) 50 mg tablet; Take 1 tablet (50 mg total) by mouth nightly - citalopram (CeleXA) 40 mg tablet; Take 1 tablet (40 mg total) by mouth daily Attention deficit hyperactivity disorder (ADHD), predominantly inattentive type - atomoxetine (STRATTERA) 40 mg capsule; Take 1 capsule (40 mg total) by mouth daily Gastroesophageal reflux disease, unspecified whether esophagitis present - doxycycline (VIBRAMYCIN) 100 mg capsule; Take 1 tablet/capsule (100 mg total) by mouth 2 (two) times a day for 10 days - omeprazole (PriLOSEC) 20 mg capsule; Take 1 capsule (20 mg total) by mouth daily Fatigue, unspecified type - Vitamin D 25 hydroxy; Future - Vitamin B12; Future All past family, medical, and social history were reviewed and updated in the EMR as well as current medications. Patient offered no further complaints and was in agreement with plan of care. Patientwas advised regarding dosage, use, and side effects of any new medications. Patient was advised to f/u in office with any worsening or little to no improvement of symptoms. Patient was advised to follow-up regarding the results of testing ordered in office today and that they should hear from us regarding the results in 2-3 business days, discussed benefits of MyChart in regard to patient experience. The patient was given the opportunity to have all questions answered today and was in agreementwith the plan of care. Nelly Garner NP documented in this encounter Plan of Treatment Scheduled Orders Name Type Priority Associated Diagnoses Orde r Schedule Lipid panel Lab Routine Due for fasting blood test Expected: 01/28/2024, Expires: 01/19/2025 CBC with auto differential Lab Routine Due for fasting blood test Expected: 01/28/2024, Expires: 01/19/2025 Comprehensive metabolic panel Lab Routine Due for fasting blood test Expected: 01/28/2024, Expires: 01/19/2025 XR Knee Right 4+ Vw Imaging Schedule Maria Elena de la garza, Read Routine (OP Routine) Acute pain of right knee Expected: 01/28/2024, Expires: 01/27/2025 Vitamin D 25 hydroxy Lab Routine Fatigue, unspecified type Expected: 01/31/2024, Expires: 01/27/2025 Vitamin B12 Lab Routine Fatigue, unspecified type Expected: 01/31/2024, Expires: 01/27/2025 documented as of this encounter Visit Diagnoses Diagnosis Acute pain of right knee- Primary Due for fasting blood test Dental abscess Periapical abscess without sinus Moderate persistent asthma without complication Moderate episode of recurrent major depressive disorder (HCC) Attention deficit hyperactivity disorder (ADHD), predominantly inattentive type Gastroesophageal reflux disease, unspecified whether esophagitis present Fatigue, unspecified type documented in this encounter Discontinued Medications Medication Sig Discontinue Reason Start Date End Da te busPIRone (BUSPAR) 5 mg tabletIndications:General ized Anxiety Disorder Take 1 tablet (5 mg total) by mouth 3 (three) times a day 01/28/2024 ondansetron ODT (ZOFRAN-ODT) 4 mg disintegrating tabletIndications:UTI symptoms,Nausea Take 1 tablet (4 mg total) by mouth every 8 (eight) hours as needed for nausea or vomiting 07/10/2023 01/28/2024 atomoxetine (STRATTERA) 80 mg capsule Take 1 capsule (80 mg total) by mouth daily 05/09/2023 01/28/2024 omeprazole (PriLOSEC) 20 mg capsule Take 1 capsule (20 mg total) by mouth daily Reorder 03/04/2018 01/28/2024 budesonide-formoteroL (Symbicort) 160-4.5 mcg/actuation inhalerIndications:Bronch ospasm Prevention with COPD Inhale 2 puffs 2 (two) times a day Reorder 12/18/2021 01/28/2024 amitriptyline (ELAVIL) 25 mg tablet Take 1 tablet by mouth nightly Reorder 09/19/2022 01/28/2024 albuterol HFA (PROVENTIL HFA,VENTOLIN HFA,PROAIR HFA) 90 mcg/actuation inhaler Inhale 2 puffs every 6 (six) hours as needed for wheezing Reorder 03/06/2023 01/28/2024 atomoxetine (STRATTERA) 40 mg capsuleIndications:Attent ion-Deficit Hyperactivity Disorder Take 1 capsule (40 mg total) by mouth daily for 14 days Reorder 05/09/2023 01/28/2024 citalopram (CeleXA) 40 mg tablet Take 1 tablet by mouth once daily Reorder 12/26/2023 01/28/2024 documented as of this encounter Care Teams Sales Representative Groceries Relationship Specialty Start Date End Date Pillo [place] [address] PCP - General Family Medicine 11/06/21 documented as of this encounter
--- OUTSIDE RECORDS SUMMARY | 2024-11-13 02:17 | XMS_ITS | Encounter Summary ---
Author Organization 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 * Telephone Encounter - Bridgett Lin MA - 07/12/2023 4:14 PM CDT ----- Message from Colleen Godoy NP sent at 07/12/2023 3:59 PM CDT ----- Please call patient and let her know that her urine culture was negative. She may continue antibiotic only if she feels it is helping with her symptoms. She should follow-up with PCP if symptoms persist documented in this encounter Plan of Treatment Not on file documented as of this encounter Visit Diagnoses Not on filedocumented in this encounter Care Teams Endocrinology Nurse Relationship Specialty Start Date End Date Pillo Lofton MD [address] [place] [address] PCP - General Family Medicine 11/06/21 documented as of this encounter
--- OUTSIDE RECORDS SUMMARY | 2024-11-13 02:17 | XMS_ITS | Encounter Summary ---
Author Organization [facility] Address [address] [place] [address] Care Team Providers Care Financial Institution Manager Name Role Phone Pillo Moody MD Primary Care Provider [phone] Reason for Referral * Diagnostic Imaging (Routine) - Closed Specialty Diagnoses / Procedures Referred By Florian levy Referred To Contact Diagnoses Encounter for screening mammogram for malignant neoplasm of breast Procedures SCREENING MAMMOGRAM BILATERAL W Pillo Box MD [facility] [place] [address] [place] [address] Phone: tel: fax: [address] [phone] Referral ID Status Reason Start Date Expiration Date Visits Re quested Visits Authorized [id number] Closed 11/06/2021 12/06/2022 1 1 [facility]ER [facility] Reason for Visit * Reason Comments Establish Care [facility] abel keith Depression PHQ 21 Encounter Details Date Type Department Care Team (Late st Contact Info) Description 11/06/2021 9:45 AM LABOR[facility] Office Visit [facility] [address] [place] [address] Pillo Moody MD [address] [place] [address] Moderate episode of recurrent major depressive disorder (HCC) (Primary Dx); Lipid screening; Encounter for screening mammogram for malignant neoplasm of breast; Annual physical exam; Numbness of upper extremity; Arthralgia of multiple joints; Acute recurrent frontal sinusitis; Moderate persistent asthma without complication Social History Tobacco Use Types Packs/Day Years Used Date Smoking Tobacco: Never Smokeless Tobacco: Never Alcohol Use Standard Drinks/Week Comments No 0 (1 standard drink = 0.6 oz pur e alcohol) AUDIT-C Answer Date Recorded Q1: How often do you have a drink containing alc ohol? Monthly or less 11/06/2021 Q2: How many drinks containi ng alcohol do you have on a typical day when you are drinking? 1 or 2 11/06/2021 Q3: How often do you have si x or more drinks on one occasion? Never 11/06/2021 Comments No Sex and Gender Information Value Date Recorded Sex Assigned at Not on file Legal Sex Female 6:03 PM LABOR[facility] Gender Identity Not on file Sexual Orientation Not on file documented as of this encounter Last Filed Vital Signs Vital Sign Reading Time Taken Comments Blood Pressure 108/76 11/06/2021 10:08 AM LABOR[facility] Pulse 73 11/06/2021 10:08 AM LAB[facility] [employer] [employer] Temperature 36.8 ??C (98.2 ??F) 11/06/2021 10:[address] Respiratory Rate - - Oxygen Saturation 98% 11/06/2021 10:08 AM LAB[facility] [employer] [employer]OCK Inhaled Oxygen Concentration - - Weight 111.6 kg (246 lb) 11/06/2021 10:08 AM LAB[facility] [employer] [employer] Height 167.6 cm (5' 6 ) 11/06/2021 10:08 AM LAB[facility] [employer] [employer] Body Mass Index 39.71 11/06/2021 10:08 AM LAB[facility] [employer] [employer] documented in this encounter Ordered Prescriptions Prescription Sig Dispense Quantity Refills Last Filled Start Date End Date amitriptyline (ELAVIL) 25 mg tablet Take 1 tablet (25 mg total) by mouth nightly 30 tablet 1 11/06/2021 2 citalopram (CeleXA) 40 mg tabletIndications: Generalized Anxiety Disorder,major depressive disorder Take 1 tablet (40 mg total) by mouth daily 60 tablet 11/06/2021 2 documented in this encounter Progress Notes * Pillo Moody MD - 11/06/2021 9:45 AM CST Images from the original note were not included. Subjective/Objective Patient ID: Lore Massey is a 46 y.o. female. Chief Complaint Chief Complaint Patient presents with ??? Establish Care est care, new patient ??? Depression PHQ 21 HPI Patient is a 46 year old female, presenting to establish care. Seen in [facility] for sinusitis; completed Doxycycline, continues to front sinus pressure -no fevers or chills -has been using Mucinex and nebulizer -uses flonase Asthma: has improved with age; worse with seasonal changes and weather -uses albuterol 5 times per month when healthy -has known allergies; -has nasal polyps -takes ibuprofen for severe headaches, but avoids use of NSAIDs due to gastritis MDD/Anxiety: -not well controlled; recommended to see psychiatry for worsening, poorly controlled symptoms -has severe panic attacks with vomitting and incontinence. -previous treatments with Lexapro, Xanax, Paxil, Wellbutrin - Past Medical History: Diagnosis Date ??? Anxiety ??? Asthma ??? Depression Past Surgical History: Procedure Laterality Date ??? HYSTERECTOMY ??? KNEE DEBRIDEMENT ??? TUBAL LIGATION Patient Active Problem List Diagnosis Date Noted ??? Moderate episode of recurrent major depressive disorder (HCC) 11/06/2021 ??? Acute recurrent frontal sinusitis 11/06/2021 ??? Moderate persistent asthma without complication 11/06/2021 Current Outpatient Medications Medication Sig Dispense Refill ??? albuterol HFA (Ventolin HFA) 90 mcg/actuation inhaler ??? budesonide/formoterol fumarate (SYMBICORT INHAL) Inhale ??? busPIRone (BUSPAR) 5 mg tablet Take 5 mg by mouth 3 (three) times a day ??? citalopram (CeleXA) 40 mg tablet Take 1 tablet (40 mg total) by mouth daily 60 tablet 0 ??? ergocalciferol (VITAMIN D) 50,000 unit capsule Take 1 capsule by mouth ??? omeprazole (PriLOSEC) 20 mg capsule Take 20 mg by mouth daily ??? ondansetron ODT (ZOFRAN-ODT) 4 mg disintegrating tablet Dissolve 1 tablet oral every 4 hours asneeded for nausea or vomiting. 20 tablet 0 ??? amitriptyline (ELAVIL) 25 mg tablet Take 1 tablet (25 mg total) by mouth nightly 30 tablet 1 No current facility-administered medications for this visit. Allergies as of 11/06/2021 - Reviewed 11/06/2021 Allergen Reaction Noted ??? Penicillins Hives, Shortness of breath, and Edema 03/02/2018 Social History Socioeconomic History ??? Marital status: Spouse name: None ??? Number of children: None ??? Years of education: None ??? Highest education level: None Occupational History ??? None Tobacco Use ??? Smoking status: Never Smoker ??? Smokeless tobacco: Never Used Vaping Use ??? Vaping Use: Never used Substance and Sexual Activity ??? Alcohol use: No ??? Drug use: No ??? Sexual activity: Yes Other Topics Concern ??? None Social History Narrative ??? None Social Determinants of Health Financial Resource Strain: Not on file Food Insecurity: Not on file Transportation Needs: Not on file Physical Activity: Not on file Stress: Not on file Social Connections: Not on file Intimate Partner Violence: Not on file Housing Stability: Not on file Family History Problem Relation Age of Onset ??? Hypertension Mother ??? Diabetes Mother ??? Rheum arthritis Mother ??? No Known Problems Father ??? Hypertension Brother Review of Systems Constitutional: Positive for fatigue. Negative for activity change, appetite change, chills and fever. HENT: Positive for congestion and sinus pain. Negative for hearing loss, postnasal drip, rhinorrhea, sinus pressure and sore throat. Eyes: Negative for itching and visual disturbance. Respiratory: Positive for chest tightness. Negative for cough, shortness of breath and wheezing. Cardiovascular: Negative for chest pain and leg swelling. Gastrointestinal: Negative for abdominal pain, constipation, diarrhea, nausea and vomiting. Endocrine: Positive for heat intolerance, polydipsia and polyuria. Negative for cold intolerance. Genitourinary: Negative for difficulty urinating, dysuria and frequency. Musculoskeletal: Positive for arthralgias. Negative for myalgias. Neurological: Positive for weakness, numbness and headaches. Negative for dizziness. Psychiatric/Behavioral: Positive for dysphoric mood. Negative for agitation, sleep disturbance and suicidal ideas. The patient is nervous/anxious. Breast: Negative for tenderness and lump(s). BP 108/76 (BP Location: Right arm, Patient Position: Sitting) Pulse 73 Temp 36.8 ??C (98.2 ??F)(Oral) Ht 167.6 cm (5' 6 ) Wt 111.6 kg (246 lb) SpO2 98% BMI 39.71 kg/m?? Physical Exam Vitals reviewed. Constitutional: Appearance: Normal appearance. HENT: Head: Normocephalic and atraumatic. Cardiovascular: Rate and Rhythm: Normal rate and regular rhythm. Pulses: Normal pulses. Heart sounds: Normal heart sounds. Pulmonary: Effort: Pulmonary effort is normal. Breath sounds: No wheezing, rhonchi or rales. Abdominal: General: Abdomen is flat. Palpations: Abdomen is soft. Musculoskeletal: General: No swelling or signs of injury. Normal range of motion. Skin: General: Skin is warm and dry. Neurological: General: No focal deficit present. Mental Status: She is alert and oriented to person, place, and time. Psychiatric: Mood and Affect: Mood normal. Behavior: Behavior normal. Thought Content: Thought content normal. Diagnoses and all orders for this visit: Moderate episode of recurrent major depressive disorder (HCC) (Primary) Assessment & Plan: Stable, not well controlled; patient reports worsening symptoms of anxiety depression Patient would like referral to Psychiatry Continue BuSpar 5 mg daily Increase citalopram to 40 mg daily, encourage counseling Will continue to follow-up Start amitriptyline 25 mg nightly for insomnia Orders: - CBC with auto differential; Future - Ambulatory referral to Psychiatry; Future - TSH; Future Lipid screening - Lipid panel; Future Encounter for screening mammogram for malignant neoplasm of breast - SCREENING MAMMOGRAM BILATERAL W LULA; Future Annual physical exam - CBC with auto differential; Future - Comprehensive metabolic panel; Future Numbness of upper extremity - EMG/NCV -; Future Arthralgia of multiple joints - Erythrocyte sedimentation rate; Future - CRP (acute phase); Future Acute recurrent frontal sinusitis Moderate persistent asthma without complication Assessment & Plan: Stable, well controlled on Symbicort Continue Symbicort b.i.d. dosing Albuterol p.r.n. Other orders - citalopram (CeleXA) 40 mg tablet; Take 1 tablet (40 mg total) by mouth daily - amitriptyline (ELAVIL) 25 mg tablet; Take 1 tablet (25 mg total) by mouth nightly given vague arthralgias in multiple joints, will get ESR and CRP to evaluate for autoimmune or inflammatory disease Return in about 6 weeks (around 12/18/2021). Pillo Moody MD [facility] * Tangela Cancholanifer, CONSUMER SERVICES ADVISOR - 11/06/2021 9:45 AM CST Pt presents to [facility] to establish care with Dr. Moody. SW explained the SBIRT program to Pt and asked if she would mind if I did an assessment/screening to determine any mental health concerns or substance use disorders. Screening What screening methods were used? Pt agreed to the screening and this SW proceeded to engage the PHQ-2/9, MH AUDIT, and DAST-10. What were the results of the screening methods? Pt scored a 21 on PHQ2/9 indicating severe depression. Pt reported that she has been on medication to help with her depression since she was 21 yrs old, due to the of her 2 y/o son, following him khadijah a rare virus and severe asthma. Pt reported that seeing him , in addition to being with her second child, was very traumatic. Pt noted that she is not currently working witha therapist, and she engages in little to no self care. Pt also acknowledged being overwhelmed witha healthy work/life balance. PHQ 9 Scoring Scale 0-4 = None-Minimal 5-9 = Mild (watchful waiting; repeat PHQ 9 at follow-up) 10-14 = Moderate (Treatment plan, consider counseling, follow-up and/or pharmacotherapy) 15-19 = Moderately Severe (Active treatment with pharmacotherapy and/or psychotherapy) 20-27 = Severe (Immediate initiation of pharmacotherapy and, if severe impairment or poor response to therapy, expedited referral to a mental health specialist for psychotherapy and/or collaborative management) *From Chapo Srivastava, Bre RL, Psychiatric Annals 2002; 32:509-521 Pt scored a 1 on the AUDIT AUDIT Scoring Scale A score of 8 or more is associated with harmful or hazardous drinking, a score of 13 or more in women, and 15 or more in men, is likely to indicate alcohol dependence. Pt score on DAST-10 was 1, indicating low level drug use. Pt reported that she uses marijuana gummies on a fairly regular basis, half the days of the month, in order to help relax. Pt denies having any problems related to her marijuana use. DAST Scoring Scale Scoring: Score 1 point for each question answered ???Yes,?? except for question 3 for which a ???No?? receives 1 point. Score Degree of Problems Related to Drug Abuse Suggested Action 0 No problems reported None at this time 1-2 Low level Monitor, re-assess at a later date 3-5 Moderate level Further investigation 6-8 Substantial level Intensive assessment 9-10 Severe level Intensive assessment Brief Intervention What was discussed with the patient? What stage of change are they in? What are some barriers to treatment? Pt presents to [facility] to establish care with Dr. Moody. Pt was neat and clean, personable and cooperative. Pt's affect and behavior were appropriate. Pt denied any hx. Of abuse or neglect, however, reported the of her first child being very traumatic for her. Pt denied any SI/HI/self-harm. Pt noted that she is and has 2 children. 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. Pt continued that she enjoys hobbies such as spending time with her grandchildren. Pt confirmed that she has a mostly good support system and people that she feels comfortable talking with if she feels down. Pt appears to be managing her mental health fairly well. And, barriers to change - access to mentalhealth resources/support. Referral to Treatment What are the next steps? What is the treatment plan? When is their appointment? What resources were given? Pt???s alcohol use does not seem to be problematic, nor does Pt's marijuana use, however she did report a consideration to cut back or quit using marijuana completely. SW reminded Pt that alcoholism/addiction is a progressive disease, as well as the impact alcohol and marijuana can have on one???s physical and emotional health. Additionally, SW reminded Pt of high-risk behaviors, primarily, but not limited to driving under the influence of alcohol or other drugs. Pt acknowledge understanding. Based on the scores of Pt's screenings, she is not a candidate for the SBIRT program. SW engaged Ptin brief intervention as scoring dictated and Pt appeared responsive acknowledging the information offered. Pt was encouraged to reach out to this SW or another health care provider if she ever wanted or needed to talk through any difficult feelings. Pt was given SW business card and she agreed to understand. SW completed the screening tools, BI and BI-DC GPRA and L.I. follow up consent enrollment. SW will scan to L.[place] and State of [place]. RER [employer] DOCK * Ashley Ladd MA - 11/06/2021 9:45 AM CST Scheduled 01/02/2022 [facility] documented in this encounter Miscellaneous Notes * Assessment & Plan Note - Pillo Moody MD - 11/06/2021 4:03 PM LABOR[facility] [employer] Associated Problem(s): Moderate episode of recurrent major depressive disorder (HCC) Stable, not well controlled; patient reports worsening symptoms of anxiety depression Patient would like referral to Psychiatry Continue BuSpar 5 mg daily Increase citalopram to 40 mg daily, encourage counseling Will continue to follow-up Start amitriptyline 25 mg nightly for insomnia RER [employer] [employer]OCK * Assessment & Plan Note - Pillo Moody MD - 11/06/2021 4:03 PM LABORER [employer]OCK Associated Problem(s): Moderate persistent asthma without complication Stable, well controlled on Symbicort Continue Symbicort b.i.d. dosing Albuterol p.r.n. RER [employer]ENTRY [employer]OCK documented in this encounter Plan of Treatment Not on file documented as of this encounter Results * SCREENING MAMMOGRAM BILATERAL W LULA (01/02/2022 4:32 PM LABORER [employer] DOCK) Anatomical Region Laterality Modality Breast Bilateral Mammography 01/03/2022 11:2 9 AM LABOR[facility] [employer] Impressions 01/03/2022 11:29 AM LABORER [employer] [employer]OCK There is no mammographic evidence of malignancy. Routine screening mammography is recommended in 1 year. BI-RADS: 1 - Negative. The patient will be entered into a reminder system with a target due date of 1 year for her next mammogram. Electronically signed by: Mitchell Torres M.D. Narrative 01/03/2022 11:29 AM LABORER [employer]OCK EXAMINATION: SCREENING MAMMOGRAM BILATERAL W LULA ORDERING [...] MD IMG MAMMO PROCEDURES Rissa l Result * CRP (acute phase) (11/06/2021 10:51 AM LABORER [employer] DOCK) CRP 9.2 <=10.0 mg/L [facility] Blood 11/06/2021 10:5 1 AM LABOR[facility] [employer]OCK 11/06/2021 5:11 PM LABORER [employer]OCK Pillo Moody MD LAB BLOOD ORDERABLES Rissa l Result Performing Organization Address City/[facility] Co de Phone Number [facility] [address] [place] [address] * Erythrocyte sedimentation rate (11/06/2021 10:51 AM LABORER [employer] DOCK) Erythrocyte sedimentation rate 10 1 - 20 mm/hr [facility] Blood 11/06/2021 10:5 1 AM LAB[facility] [employer]OCK 11/06/2021 5:11 PM LABORER [employer]OCK Pillo Moody MD LAB BLOOD ORDERABLES Rissa l Result [facility] [address] [facility] [place] [address] * TSH (11/06/2021 10:51 AM LABORER [employer] [employer]OCK) Thyroid Stimulating Hormone 1.53 0.30 - 4.20 mcIUnit/mL [facility] Blood 11/06/2021 10:5 1 AM LABOR[facility] [employer]OCK 11/06/2021 5:11 PM LABORER CAR[employer]OCK us Pillo Moody MD LAB BLOOD ORDERABLES Rissa shani Result [facility] [id number] [place] [address] * (ABNORMAL) Lipid panel (11/06/2021 10:51 AM LABORER [employer] DOCK) Cholesterol 187 30 - 199 mg/dL [facility] Comment: Interpretive Data Ages < or = 19 years ??Acceptable: ? <170 mg/dL ??Borderline high: ??170-199 mg/dL ??High: ? >or= 200 mg/dL Ages > or = 20 years ??Desirable: ?<200 mg/dL ??Borderline high: ??200-239 mg/dL ??High: ? >or= 240 mg/dL Literature References: 1. Expert Panel on Integrated Guidelines for Cardiovascular Health and Risk Reduction in Children and Adolescents. Pediatrics 2011;128:S213 2. NCEP Expert Panel. Circulation 2004;110:227 Current Interpretive Data was last revised on 2018. Triglycerides 166(H) <=149 mg/dL [facility] Comment: Interpretive Data Ages < or = 9 years ??Acceptable: ? <75 mg/dL ??Borderline high: ??75-99 mg/dL ??High: ? >or= 100 mg/dL Ages 10 to 20 years ??Acceptable: ? <90 mg/dL ??Borderline high: ??90-129 mg/dL ??High: ? >or= 130 mg/dL Ages > or = 20 years ??Desirable: ?<150 mg/dL ??Borderline high: ??150-199 mg/dL ??High: ? 200-499 mg/dL ?Very high: ?? >or= 499 mg/dL Literature References: 1. Expert Panel on Integrated Guidelines for Cardiovascular Health and Risk Reduction in Children and Adolescents. Pediatrics 2011;128:S213 2. NCEP Expert Panel. Circulation 2004;110:227 Current Interpretive Data was last revised on 2018. HDL 60 >=40 mg/dL [facility] Comment: Interpretive Data Ages < or = 19 years ??Acceptable: ? >45 mg/dL ??Borderline low: ?? 40-45 mg/dL ??Low: ? <40 mg/dL Ages > or = 20 years ??Desirable: ?>or= 60 mg/dL ??Low: ? <40 mg/dL Literature References: 1. Expert Panel on Integrated Guidelines for Cardiovascular Health and Risk Reduction in Children and Adolescents. Pediatrics 2011;128:S213 2. NCEP Expert Panel. Circulation 2004;110:227 Current Interpretive Data was last revised on 2018. LDL, calculated 94 <=129 mg/dL [facility] Comment: Interpretive Data Ages < or = 19 years ??Acceptable: ? <110 mg/dL ??Borderline high: ??110-129 mg/dL ??High: ?>or= 130 mg/dL Ages > or = 20 years ??Optimal: ? <100 mg/dL ??Near optimal: ?100-129 mg/dL ??Borderline high: ?? 130-159 mg/dL ??High: ?>160 mg/dL Literature References: 1. Expert Panel on Integrated Guidelines for Cardiovascular Health and Risk Reduction in Children and Adolescents. Pediatrics 2011;128:S213 2. NCEP Expert Panel. Circulation 2004;110:227 Current Interpretive Data was last revised on 2018. Non-HDL Cholesterol 127 mg/dL [facility] Comment: Interpretive Data Ages < or = 19 years ??Acceptable: ?<120 mg/dL ??Borderline high: ??120-144 mg/dL ??High: ?>145 mg/dL Ages > or = 20 years ??When triglycerides are >200 mg/dL, Non-HDL cholesterol is a secondary target of ? therapy with treatment goals that are 30 mg/dL greater than the LDL cholesterol target. ? Literature References: 1. Expert Panel on Integrated Guidelines for Cardiovascular Health and Risk Reduction in Children and Adolescents. Pediatrics 2011;128:S213 2. NCEP Expert Panel. Circulation 2004;110:227 Current Interpretive Data was last revised on 2018. Chol/HDL ratio 3 [facility] Blood 11/06/2021 10:5 1 AM LABOR[facility] [employer]OCK 11/06/2021 5:11 PM LABORER [employer]OCK us Pillo Moody MD LAB BLOOD ORDERABLES Rissa mcleod Result [facility] [id number] [address] [place] [address] * (ABNORMAL) Comprehensive metabolic panel (11/06/2021 10:51 AM LABORER [employer]) Sodium 135 135 - 145 mmol/L [facility] Potassium, pl 3.6 3.3 - 4.9 mmol/L [facility] Chloride 96(L) 97 - 110 mmol/L [facility] CO2 27 22 - 32 mmol/L [facility] Anion gap 12 2 - 15 mmol/L [facility] BUN 11 8 - 25 mg/dL [facility] Creatinine 0.74 0.60 - 1.10 mg/dL [facility] Glucose 83 70 - 199 mg/dL [facility] Comment: Interpretive Data Fasting glucose >/= 126 mg/dl is diagnostic for diabetes. ?? Fasting is defined as no caloric intake for at least 8 hours. Fasting glucose between 100 mg/dl to 125 mg/dl is diagnostic of prediabetes. In a patient with classic symptoms of hyperglycemia or hyperglycemic crisis, a random glucose >/= 200 mg/dl is diagnostic for diabetes. In the absence of unequivocal hyperglycemia, results should be confirmed by repeat testing. The classification and Diagnosis of Diabetes Diabetes Care 2017;40 (Suppl. 1):S11. Current interpretive data was last revised 2017. Calcium 9.6 8.5 - 10.3 mg/dL [facility] Bilirubin, total 0.4 0.1 - 1.2 mg/dL [facility] Protein, pl 7.3 6.5 - 8.5 g/dL [facility] Albumin 4.4 3.5 - 5.0 g/dL [facility] Alk phos 58 40 - 130 Units/L [facility] ALT 21 7 - 45 Units/L [facility] AST 20 10 - 45 Units/L [facility] Blood 11/06/2021 10:5 1 AM LAB[facility] [employer]OCK 11/06/2021 5:11 PM LABORER [employer]OCK us Pillo Moody MD LAB BLOOD ORDERABLES Rissa l Result [facility] [address] [place] [address] * (ABNORMAL) CBC with auto differential (11/06/2021 10:51 AM LABORER [employer]OCK) WBC 13.8(H) 3.8 - 9.9 K/cumm [facility] Hgb 14.4 11.9 - 15.5 g/dL [facility] Hct 44.7 35.6 - 45.5 % [facility] Plt 415(H) 150 - 400 K/cumm [facility] MPV 9.0(L) 9.1 - 12.3 fL [facility] RBC 4.80 3.90 - 5.20 M/cumm [facility] MCV 93.1 81.3 - 96.4 fL [facility] MCH 30.0 27.1 - 33.3 pg [facility] MCHC 32.2(L) 32.3 - 35.7 g/dL [facility] RDW CV 13.2 11.1 - 14.9 % [facility] RDW SD 45.1 35.7 - 48.1 fL [facility] NRBC abs 0.00 0.00 - 0.01 K/cumm [facility] Blood 11/06/2021 10:5 1 AM LABOR[facility] [employer]OCK 11/06/2021 5:11 PM LABORER [employer] DOCK Pillo Moody MD LAB BLOOD ORDERABLES Rissa l Result [facility] [address] [place] [address] documented in this encounter Visit Diagnoses Diagnosis Moderate episode of recurrent major depressive disorder (HCC)- Primary Lipid screening Screening for lipoid disorders Encounter for screening mammogram for malignant neoplasm of breast Annual physical exam Routine general medical examination at a health care facility Numbness of upper extremity Arthralgia of multiple joints Pain in joint, multiple sites Acute recurrent frontal sinusitis Moderate persistent asthma without complication Encounter for screening mammogram for malignant neoplasm of breast documented in this encounter Discontinued Medications Medication Sig Discontinue Reason Start Date End Da te citalopram (CeleXA) 10 mg tablet Take 10 mg by mouth daily Reorder 03/04/2018 11/06/2021 documented as of this encounter Historical Medications * This list may reflect changes made after this encounter. ergocalciferol (VITAMIN D) 50,000 unit capsule Take 1 capsule (50,000 Units total) by mouth 03/04/2018 omeprazole (PriLOSEC) 20 mg capsule Take 1 capsule (20 mg total) by mouth daily 03/04/2018 01/28/2024 busPIRone (BUSPAR) 5 mg tabletIndications :Generalized Anxiety Disorder Take 1 tablet (5 mg total) by mouth 3 (three) times a day 01/28/2024 budesonide/formot marbin fumarate (SYMBICORT INHAL) Inhale 022 albuterol HFA (Ventolin HFA) 90 mcg/actuation inhaler 12/18/2017 12/18/2021 citalopram (CeleXA) 10 mg tablet Take 10 mg by mouth daily 03/04/2018 11/06/2021 added in this encounter Care Teams Financial Institution Manager Relationship Specialty Start Date End Date [place] [address] [place] [address] PCP - General Family Medicine 11/06/21 documented as of this encounter
--- OUTSIDE RECORDS SUMMARY | 2024-11-13 02:17 | XMS_ITS | Encounter Summary ---
Author Organization [facility] Medical [facility] Address [address] [place] [address] Care Team Providers Care Bucket Wash Operator Name Role Phone Pillo Lofton MD Primary Care Provider [phone] [phone] Reason for Visit * Reason Comments Follow-up 6 week f/u Encounter Details Date Type Department Care Team (Late st Contact Info) Description 12/18/2021 9:30 AM EQUITY STRUCTURER Office Visit [facility] [address] [address] Pillo Lofton MD [address] [place] [address] Moderate episode of recurrent major depressive disorder (HCC) (Primary Dx); Encounter for screening for lipid disorder; Refused influenza vaccine; Class 3 severe obesity due to excess calories with serious comorbidity and body mass index (BMI) of 40.0 to 44.9 in adult (HCC); Primary osteoarthritis involving multiple joints; Hypertension, essential Social History Tobacco Use Types Packs/Day Years [...] more drinks on one occasion? Never 11/06/2021 PHQ-2 Answer Date Recorded PHQ-2 Total Score (If total score is 3 or more points, staff should administer the PHQ-9) 2 12/18/2021 Comments No Sex and Gender Information Value Date Recorded Sex Assigned at Not on file Legal Sex Female 6:03 PM EQUITY STRUCTURER Gender Identity Not on file Sexual Orientation Not on file documented as of this encounter Last Filed Vital Signs Vital Sign Reading Time Taken Comments Blood Pressure 122/84 12/18/2021 8:58 AM EQUITY STRUCTURER Pulse 81 12/18/2021 8:58 AM EQUITY STRUCTURER Temperature 36.9 ??C (98.5 ??F) 12/18/2021 8:58 AM CS T Respiratory Rate 16 12/18/2021 8:58 AM EQUITY STRUCTURER Oxygen Saturation 98% 12/18/2021 8:58 AM EQUITY STRUCTURER Inhaled Oxygen Concentration - - Weight 113.1 kg (249 lb 6.4 oz) 12/18/2021 8:58 AM EQUITY STRUCTURER Height 167.6 cm (5' 5.98 ) 12/18/2021 8:58 AM CS T Body Mass Index 40.27 12/18/2021 8:58 AM EQUITY STRUCTURER documented in this encounter Ordered Prescriptions Prescription Sig Dispense Quantity Refills Last Filled Start Date End Date budesonide-formote roL (Symbicort) 160-4.5 mcg/actuation inhalerIndications :Bronchospasm Prevention with COPD Inhale 2 puffs 2 (two) times a day 3 each 3 12/18/2021 4 albuterol HFA (Ventolin HFA) 90 mcg/actuation inhaler Inhale 1 puff every 6 (six) hours as needed for wheezing 3 each 3 12/18/2021 3 hydroCHLOROthiazid e (HYDRODIURIL) 25 mg tablet Take 1 tablet (25 mg total) by mouth daily 90 tablet 3 12/18/2021 3 amitriptyline (ELAVIL) 25 mg tablet Take 1 tablet (25 mg total) by mouth nightly 90 tablet 1 12/18/2021 2 fexofenadine (GEORGIA) 180 mg tablet Take 1 tablet (180 mg total) by mouth daily as needed (allergies) 90 tablet 3 12/18/2021 3 documented in this encounter Progress Notes * Pillo Lofton MD - 12/18/2021 9:30 AM CST Images from the original note were not included. Subjective/Objective Patient ID: Lore Massey is a 46 y.o. female. Chief Complaint Chief Complaint Patient presents with ??? Follow-up 6 week f/u HPI HPI Patient is a 46 year old female, presenting for management of chronic medical conditions. Osteoarthritis: -mostly hips, right leg, bilateral hands; shoulders -no current medications for OA; used to take Meloxicam, but was hard on stomach; had good relief with medication, but had stomach pain Obesity; -stable, no weight change -work on making lunches, eat out less Sinusitis: -no longer has congestion or sinusitis Asthma: -continues to have some heaviness in chest; non-productive cough -has some mucous production first in the morning MDD/Anxiety -has been taking amitriptyline at bedtime; has improved sleep, has been having improvement in moods -good improvement in 25 mg, no severe side effects, no daytime drowsiness during next day Continues to feel tired throughout day; could go to sleep easily -no known snoring at night; per , patient 'wheezes' Current Outpatient Medications Medication Sig Dispense Refill ??? albuterol HFA (Ventolin HFA) 90 mcg/actuation inhaler Inhale 1 puff every 6 (six) hours as needed for wheezing 3 each 3 ??? amitriptyline (ELAVIL) 25 mg tablet Take 1 tablet (25 mg total) by mouth nightly 90 tablet 1 ??? busPIRone (BUSPAR) 5 mg tablet Take 5 mg by mouth 3 (three) times a day ??? citalopram (CeleXA) 40 mg tablet Take 1 tablet (40 mg total) by mouth daily 60 tablet 0 ??? ergocalciferol (VITAMIN D) 50,000 unit capsule Take 1 capsule by mouth ??? hydroCHLOROthiazide (HYDRODIURIL) 25 mg tablet Take 1 tablet (25 mg total) by mouth daily 90 tablet 3 ??? omeprazole (PriLOSEC) 20 mg capsule Take 20 mg by mouth daily ??? ondansetron ODT (ZOFRAN-ODT) 4 mg disintegrating tablet Dissolve 1 tablet oral every 4 hours asneeded for nausea or vomiting. 20 tablet 0 ??? budesonide-formoteroL (Symbicort) 160-4.5 mcg/actuation inhaler Inhale 2 puffs 2 (two) times a day 3 each 3 ??? fexofenadine (GEORGIA) 180 mg tablet Take 1 tablet (180 mg total) by mouth daily as needed (allergies) 90 tablet 3 No current facility-administered medications for this visit. Allergies as of 12/18/2021 - Reviewed 12/18/2021 Allergen Reaction Noted ??? Penicillins Hives, Shortness of breath, and Edema 03/02/2018 Review of Systems Constitutional: Negative for activity change, chills and fever. HENT: Negative for sore throat. Respiratory: Positive for cough and shortness of breath. Gastrointestinal: Positive for nausea. Negative for abdominal pain, constipation, diarrhea and vomiting. Musculoskeletal: Positive for arthralgias. Negative for myalgias. Psychiatric/Behavioral: Negative for dysphoric mood and sleep disturbance. The patient is not nervous/anxious. BP 122/84 (BP Location: Left arm, Patient Position: Sitting) Pulse 81 Temp 36.9 ??C (98.5 ??F) (Oral) Resp 16 Ht 167.6 cm (5' 5.98 ) Wt 113.1 kg (249 lb 6.4 oz) SpO2 98% BMI 40.27 kg/m?? Physical Exam Constitutional: Appearance: Normal appearance. HENT: Head: Normocephalic and atraumatic. Nose: Mucosal edema and rhinorrhea present. Right Turbinates: Enlarged, swollen and pale. Left Turbinates: Enlarged, swollen and pale. Cardiovascular: Rate and Rhythm: Normal rate and [...] disorder (HCC) (Primary) Assessment & Plan: Stable, well contolled; continue Amitriptyline 25 mg nightly for insomnia and daytime anxiety and depression Encounter for screening for lipid disorder Refused influenza vaccine Class 3 severe obesity due to excess calories with serious comorbidity and body mass index (BMI) of40.0 to 44.9 in adult ([facility]) Assessment & Plan: Not well control, has mildly increase in weight since last visit -now woking on making more mels at home, eating out less -encourage continued dietary changes Primary osteoarthritis involving multiple joints Assessment & Plan: Continue with current management, encourage activity; use of tylenol and NSAIDs PRN for pain - Hypertension, essential Assessment & Plan: Stble, bp at target, continue HCTZ 25 mg daily Other orders - fexofenadine (GEORGIA) 180 mg tablet; Take 1 tablet (180 mg total) by mouth daily as needed (allergies) - amitriptyline (ELAVIL) 25 mg tablet; Take 1 tablet (25 mg total) by mouth nightly - hydroCHLOROthiazide (HYDRODIURIL) 25 mg tablet; Take 1 tablet (25 mg total) by mouth daily - albuterol HFA (Ventolin HFA) 90 mcg/actuation inhaler; Inhale 1 puff every 6 (six) hours as needed for wheezing - budesonide-formoteroL (Symbicort) 160-4.5 mcg/actuation inhaler; Inhale 2 puffs 2 (two) times a day Return in about 3 months (around 03/17/2022). Pillo Lofton MD TY STRUCTURER documented in this encounter Miscellaneous Notes * Assessment & Plan Note - Pillo Lofton MD - 12/19/2021 1:13 PM EQUITY STRUCTURER Associated Problem(s): Hypertension, essential Stble, bp at target, continue HCTZ 25 mg daily TY STRUCTURER * Assessment & Plan Note - Pillo Lofton MD - 12/19/2021 1:12 PM EQUITY STRUCTURER Associated Problem(s): Moderate persistent asthma without complication Stable, not well controlled; continues to have some congestion and mucous production -continue Symbicort 160-4.5 2 puff BID -albuterol PRN -Fexofenadine 180 mg daily TY STRUCTURER * Assessment & Plan Note - Pillo Lofton MD - 12/19/2021 1:11 PM EQUITY STRUCTURER Associated Problem(s): Class 2 severe obesity due to excess calories with serious comorbidity and body mass index (BMI) of 36.0 to 36.9 in adult (HCC) Not well control, has mildly increase in weight since last visit -now woking on making more mels at home, eating out less -encourage continued dietary changes TY STRUCTURER * Assessment & Plan Note - Pillo Lofton MD - 12/19/2021 1:10 PM EQUITY STRUCTURER Associated Problem(s): Moderate episode of recurrent major depressive disorder (HCC) Stable, well contolled; continue Amitriptyline 25 mg nightly for insomnia and daytime anxiety and depression TY STRUCTURER * Assessment & Plan Note - Pillo Lofton MD - 12/19/2021 1:09 PM EQUITY STRUCTURER Associated Problem(s): Primary osteoarthritis involving multiple joints Continue with current management, encourage activity; use of tylenol and NSAIDs PRN for pain - TY STRUCTURER documented in this encounter Plan of Treatment Not on file documented as of this encounter Visit Diagnoses Diagnosis Moderate episode of recurrent major depressive disorder (HCC)- Primary Encounter for screening for lipid disorder Refused influenza vaccine Class 3 severe obesity due to excess calories with serious comorbidity and body mass index (BMI) of 40.0 to 44.9 in adult (HCC) Primary osteoarthritis involving multiple joints Hypertension, essential Unspecified essential hypertension documented in this encounter Discontinued Medications Medication Sig Discontinue Reason Start Date End Da te amitriptyline (ELAVIL) 25 mg tablet Take 1 tablet (25 mg total) by mouth nightly Reorder 11/06/2021 12/18/2021 albuterol HFA (Ventolin HFA) 90 mcg/actuation inhaler Reorder 12/18/2017 12/18/2021 budesonide/formoterol fumarate (SYMBICORT INHAL) Inhale Reorder 12/18/2021 hydroCHLOROthiazide (HYDRODIURIL) 25 mg tablet Take 25 mg by mouth daily Reorder 12/18/2021 documented as of this encounter Historical Medications * This list may reflect changes made after this encounter. hydroCHLOROthiazi de (HYDRODIURIL) 25 mg tablet Take 25 mg by mouth daily 12/18/2021 added in this encounter Care Teams Bucket Wash Operator Relationship Specialty Start Date End Date Pillo Lofton MD [address] [place] [address] PCP - General Family Medicine 11/06/21 documented as of this encounter
--- OUTSIDE RECORDS SUMMARY | 2024-11-13 02:17 | XMS_ITS | Encounter Summary ---
Author Organization [facility] Medical [facility] Address [address] [place] [address] Care Team Providers Care Softball Winder Name Role Phone Pillo Lofton MD Primary Care Provider [phone] [phone] Reason for Visit * Reason Comments Hypertension 6 mo follow up Encounter Details Date Type Department Care Team (Late st Contact Info) Description 05/09/2023 3:15 PM CDT Office Visit [facility] [address] [place] [address] Pillo Lofton MD [address] [place] [id number] Moderate episode of recurrent major depressive disorder (HCC) (Primary Dx); Hypertension, essential; Moderate persistent asthma without complication; Class 2 severe obesity due to excess calories with serious comorbidity and body mass index (BMI) of 36.0 to 36.9 in adult (HCC); Colon cancer screening Social History Tobacco Use Types Packs/Day Years [...] on file Legal Sex Female 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 Gender Identity Not on file Sexual Orientation Not on file documented as of this encounter Last Filed Vital Signs Vital Sign Reading Time Taken Comments Blood Pressure 100/70 05/09/2023 2:55 PM CDT Pulse 88 05/09/2023 2:55 PM CDT Temperature 36.6 ??C (97.9 ??F) 05/09/2023 2:55 PM CD T Respiratory Rate 16 05/09/2023 2:55 PM CDT Oxygen Saturation 97% 05/09/2023 2:55 PM CDT Inhaled Oxygen Concentration - - Weight 102.4 kg (225 lb 12.8 oz) 05/09/2023 2:55 PM CDT Height 167.6 cm (5' 6 ) 05/09/2023 2:55 PM CDT Body Mass Index 36.45 05/09/2023 2:55 PM CDT documented in this encounter Ordered Prescriptions Prescription Sig Dispense Quantity Refills Last Filled Start Date End Date atomoxetine (STRATTERA) 80 mg capsule Take 1 capsule (80 mg total) by mouth daily 90 capsule 1 05/09/2023 4 atomoxetine (STRATTERA) 40 mg capsuleIndications: Attention-Deficit Hyperactivity Disorder Take 1 capsule (40 mg total) by mouth daily for 14 days 14 capsule 05/09/2023 4 documented in this encounter Progress Notes * Pillo Lofton MD - 05/09/2023 3:15 PM CDT Images from the original note were not included. Subjective/Objective Patient ID: Lore Massey is a 48 y.o. female. Chief Complaint Chief Complaint Patient presents with Hypertension 6 mo follow up Diagnoses and all orders for this visit: Moderate episode of recurrent major depressive disorder (HCC) (Primary) Assessment & Plan: Not well controlled, patient reports decreased motivation energy to accomplish things; feels some days can stay in bed for extended durations Decreased focus and ability to complete task at work Continue citalopram 40 mg daily, amitriptyline 25 mg nightly Start Strattera 40 mg x 14 days, then increase to 80 mg daily Will follow-up in approximately 2 months for response to therapy Hypertension, essential Assessment & Plan: Stable, well controlled; blood pressure today is low normal; patient reports significant weight loss over the past 6 months; has been working to maintain weight loss Discontinue hydrochlorothiazide 25 mg daily Moderate persistent asthma without complication Assessment & Plan: Stable, generally well controlled; no major issues at this time Continue albuterol p.r.n. Continue Symbicort 160-4.52 puffs b.i.d. Class 2 severe obesity due to excess calories with serious comorbidity and body mass index (BMI) of36.0 to 36.9 in adult (HCC) Assessment & Plan: Has last 38 lbs, decreased blood pressure Maintaining weight loss Encouraged continued maintenance of weight loss through dietary changes and regular physical activity Colon cancer screening - Stool DNA - Cologuard; Future Other orders - atomoxetine (STRATTERA) 40 mg capsule; Take 1 capsule (40 mg total) by mouth daily for 14 days - atomoxetine (STRATTERA) 80 mg capsule; Take 1 capsule (80 mg total) by mouth daily HPI HPI Patient is a 48 year old female, presenting for management of chronic medical conditions. Patient reports decreased energy and motivation to do anything; cannot focus at work; difficulty with completing simple tasks -recent aunt who ; -decreased focus for past year, more extreme over past 2 months -switched jobs in January, stepped down and decreased responsibilities Return in about 2 months (around 07/09/2023). BP 100/70 (BP Location: Right arm, Patient Position: Sitting) Pulse 88 Temp 36.6 ??C (97.9 ??F)(Oral) Resp 16 Ht 167.6 cm (5' 6 ) Wt 102.4 kg (225 lb 12.8 oz) SpO2 97% BMI 36.45 kg/m?? Current Outpatient Medications Medication Sig Dispense Refill albuterol HFA (PROVENTIL HFA,VENTOLIN HFA,PROAIR HFA) 90 mcg/actuation inhaler Inhale 2 puffs every6 (six) hours as needed for wheezing 3 each 4 amitriptyline (ELAVIL) 25 mg tablet Take 1 tablet by mouth nightly 90 tablet 0 budesonide-formoteroL (Symbicort) 160-4.5 mcg/actuation inhaler Inhale 2 puffs 2 (two) times a day 3 each 3 busPIRone (BUSPAR) 5 mg tablet Take 1 tablet (5 mg total) by mouth 3 (three) times a day citalopram (CeleXA) 40 mg tablet Take 1 tablet by mouth once daily 90 tablet 0 ergocalciferol (VITAMIN D) 50,000 unit capsule Take 1 capsule (50,000 Units total) by mouth omeprazole (PriLOSEC) 20 mg capsule Take 1 capsule (20 mg total) by mouth daily ondansetron ODT (ZOFRAN-ODT) 4 mg disintegrating tablet Dissolve 1 tablet oral every 4 hours as needed for nausea or vomiting. 20 tablet 0 atomoxetine (STRATTERA) 40 mg capsule Take 1 capsule (40 mg total) by mouth daily for 14 days 14 capsule 0 atomoxetine (STRATTERA) 80 mg capsule Take 1 capsule (80 mg total) by mouth daily 90 capsule 1 No current facility-administered medications for this visit. Allergies as of 05/09/2023 - Reviewed 05/09/2023 Allergen Reaction Noted Penicillins Hives, Shortness of breath, and Edema 03/02/2018 Review of Systems Constitutional: Positive for fatigue. Negative for activity change, chills and fever. HENT: Negative for sore throat. Respiratory: Negative for cough and shortness of breath. Cardiovascular: Negative for chest pain. Gastrointestinal: Negative for abdominal pain, constipation, diarrhea, nausea and vomiting. Musculoskeletal: Negative for arthralgias and myalgias. Psychiatric/Behavioral: Positive for decreased concentration, dysphoric mood and sleep disturbance.The patient is not nervous/anxious. Physical Exam Vitals reviewed. Constitutional: Appearance: Normal [...] normal. Thought Content: Thought content normal. Procedures Pillo Lofton MD documented in this encounter Miscellaneous Notes * Assessment & Plan Note - Pillo Lofton MD - 05/09/2023 3:29 PM CDT Associated Problem(s): Hypertension, essential Stable, well controlled; blood pressure today is low normal; patient reports significant weight loss over the past 6 months; has been working to maintain weight loss Discontinue hydrochlorothiazide 25 mg daily * Assessment & Plan Note - Pillo Lofton MD - 05/09/2023 3:29 PM CDT Associated Problem(s): Moderate episode of recurrent major depressive disorder (HCC) Not well controlled, patient reports decreased motivation energy to accomplish things; feels some days can stay in bed for extended durations Decreased focus and ability to complete task at work Continue citalopram 40 mg daily, amitriptyline 25 mg nightly Start Strattera 40 mg x 14 days, then increase to 80 mg daily Will follow-up in approximately 2 months for response to therapy * Assessment & Plan Note - Pillo Lofton MD - 05/09/2023 3:28 PM CDT Associated Problem(s): Moderate persistent asthma without complication Stable, generally well controlled; no major issues at this time Continue albuterol p.r.n. Continue Symbicort 160-4.52 puffs b.i.d. * Assessment & Plan Note - Pillo Lofton MD - 05/09/2023 3:18 PM CDT Associated Problem(s): Class 2 severe obesity due to excess calories with serious comorbidity and body mass index (BMI) of 36.0 to 36.9 in adult (HCC) Has last 38 lbs, decreased blood pressure Maintaining weight loss Encouraged continued maintenance of weight loss through dietary changes and regular physical activity documented in this encounter Plan of Treatment Not on file documented as of this encounter Visit Diagnoses Diagnosis Moderate episode of recurrent major depressive disorder (HCC)- Primary Hypertension, essential Unspecified essential hypertension Moderate persistent asthma without complication Class 2 severe obesity due to excess calories with serious comorbidity and body mass index (BMI) of 36.0 to 36.9 in adult (HCC) Colon cancer screening Special screening for malignant neoplasms, colon documented in this encounter Discontinued Medications Medication Sig Discontinue Reason Start Date End Da te hydroCHLOROthiazide (HYDRODIURIL) 25 mg tablet Take 1 tablet by mouth once daily 03/05/2023 05/09/2023 documented as of this encounter Care Teams Softball Winder Relationship Specialty Start Date End Date Pillo Lofton MD [address] [place] [address] PCP - General Family Medicine 11/06/21 documented as of this encounter
--- OUTSIDE RECORDS SUMMARY | 2024-11-13 02:17 | XMS_ITS | Encounter Summary ---
Author Organization [facility] Medical Group Address [address] [place] [address] Care Team Providers Care Auto Bumper Mechanic Name Role Phone Pillo Lofton MD Primary Care Provider [phone] Encounter Details Date Type Department Care Team (Late st Contact Info) Description 04/28/2023 Telephone [facility] [address] [place] [address] Pillo Lofton MD [address] [place] [address] Social History Tobacco Use Types Packs/Day Years Used Date Smoking Tobacco: Never Smokeless Tobacco: Never Alcohol Use Standard Drinks/Week Comments No 0 (1 standard drink = 0.6 oz pur e alcohol) AUDIT-C Answer Date Recorded Q1: How often do you have a drink containing alc ohol? Never 11/06/2022 Average Number of Drinks Not on file 022 Frequency of Binge Drinking Not on file 10/18 PHQ-2 Answer Date Recorded PHQ-2 Total Score (If total score is 3 or more points, staff should administer the PHQ-9) 4 11/06/2022 Comments No Sex and Gender Information Value Date Recorded Sex Assigned at Not on file Legal Sex Female 6:03 PM GROUND WIRER Gender Identity Not on file Sexual Orientation Not on file documented as of this encounter Miscellaneous Notes * Telephone Encounter - Salena Hope - 04/28/2023 3:28 PM CDT LMOR - needs fasting lab work done prior to 05/09/23 appt documented in this encounter Plan of Treatment Not on file documented as of this encounter Visit Diagnoses Not on filedocumented in this encounter Care Teams Auto Bumper Mechanic Relationship Specialty Start Date End [place] [address] PCP - General Family Medicine 11/06/21 documented as of this encounter
--- OUTSIDE RECORDS SUMMARY | 2024-11-13 02:17 | XMS_ITS | Encounter Summary ---
Author Organization [facility] Medical Group Address [address] [place] [address] Care Team Providers Care Plastic Panel Installer Name Role Phone Jemima Go MD Primary Care Provider [phone]- [phone] Encounter Details Date Type Department Care Team (Late st Contact Info) Description 09/28/2021 Telephone [facility] [address] [address] Chloe Aguero MA Social History Tobacco Use Types Packs/Day Years Used Date Smoking Tobacco: Never Smokeless Tobacco: Never Alcohol Use Standard Drinks/Week Comments No 0 (1 standard drink = 0.6 oz pur e alcohol) Comments No Sex and Gender Information Value Date Recorded Sex Assigned at Not on file 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 K RAILROAD AND BUS MOTOR MECHANIC documented in this encounter Plan of Treatment Not on file documented as of this encounter Visit Diagnoses Not on filedocumented in this encounter Care Teams Plastic Panel Installer Relationship Specialty Start Date End Date Jemima Go MD [address] [place] [address] PCP - General 03/02/18 11/05/21 documented as of this encounter
--- OUTSIDE RECORDS SUMMARY | 2024-11-13 02:17 | XMS_ITS | Encounter Summary ---
Author Organization [facility] Address [address] [address] Care Team Providers Care Dye Operator Name Role Phone Pillo Lofton MD Primary Care Provider [phone] Reason for Visit * Reason Comments Urinary Symptom Lower back and flank pain, bladder pain and cramping, odor to urine and frequent urination, sx started 2-3 weeks ago, nothing otc. 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 Gender Identity Not on file Sexual Orientation Not on file documented as of this encounter Last Filed Vital Signs Vital Sign Reading Time Taken Comments Blood Pressure 150/80 07/10/2023 1:47 PM CDT Pulse 96 07/10/2023 1:47 PM CDT Temperature 36.2 ??C (97.2 ??F) 07/10/2023 1:47 PM CD T Respiratory Rate 18 07/10/2023 1:47 PM CDT Oxygen Saturation 98% 07/10/2023 1:47 PM CDT Inhaled Oxygen Concentration - - Weight 102.1 kg (225 lb) 07/10/2023 1:47 PM CDT Height 167.6 cm (5' 6 ) 07/10/2023 1:47 PM CDT Body Mass Index 36.32 07/10/2023 1:47 PM CDT documented in this encounter Patient Instructions * Patient Instructions* Madeline Bell NP - 07/10/2023 2:15 PM CDT Treatment of urinary symptoms: Take your prescribed antibiotic until it is gone. It is important to read the information provided by your pharmacist about the medications you are being prescribed. If prescribed, you may use Pyridium as needed for burning upon urination- do not use for more than 3 days as this can mask the symptoms of a worsening infection. Pyridium will turn your urine orange. To prevent UTI in the future: Increase your water intake. Urine should be clear or nearly clear. Attempt to empty your bladder every 2-3 hours and do not hold urine for long periods of time. Avoid citrus juices, caffeine, alcohol, and intercourse (bladder irritants) until your symptoms resolve and treatment is complete. Always wipe from front to back. Void before and after intercourse. Avoid tight-fitting jeans, nylon or thong underwear as they can trap moisture and help bacteria grow. Cotton underwear and loose-fitting clothes should be worn. Call you PRIMARY CARE PROVIDER should your symptoms fail to improve or worsen. Go to the ER if you experience any severe pains, fever >101 that does not respond to Motrin or Tylenol, persistent vomiting, or any other worsening symptoms. documented in this encounter Ordered Prescriptions Prescription Sig Dispense Quantity Refills Last Filled Start Date End Date ondansetron ODT (ZOFRAN-ODT) 4 mg disintegrating tabletIndications:UT I symptoms,Nausea Take 1 tablet (4 mg total) by mouth every 8 (eight) hours as needed for nausea or vomiting 20 tablet 07/10/2023 4 fluconazole (DIFLUCAN) 150 mg tabletIndications:Ur inary Tract/Genitourinary Infection Take 1 tablet (150 mg total) by mouth once for 1 dose May repeat in 72 hours if signs/symptoms persist. 2 tablet 07/10/2023 3 phenazopyridine (Pyridium) 200 mg tabletIndications:Ac naknek cystitis with hematuria Take 1 tablet (200 mg total) by mouth 3 (three) times a day as needed for bladder spasms for up to 2 days 6 tablet 07/10/2023 3 nitrofurantoin monohydrate (Macrobid) 100 mg capsuleIndications:A cute cystitis with hematuria Take 1 capsule (100 mg total) by mouth 2 (two) times a day for 5 days 10 capsule 07/10/2023 3 documented in this encounter Progress Notes * Madeline Bell, GABY - 07/10/2023 2:15 PM CDT Images from the original note were not included. Subjective/Objective Patient ID: Lore Massey is a 48 y.o. female. Chief Complaint Urinary Symptom (Lower back and flank pain, bladder pain and cramping, odor to urine and frequent urination, sx started 2-3 weeks ago, nothing otc.) Patient presents to [facility] with c/o uti symptoms for 2 weeks. Patient states that she is prone to UTI's. Patient has been experiencing urinary frequency, nausea, low back pain, and frequency. Review of Systems Constitutional: Negative for chills and fever. Respiratory: Negative for shortness of breath. Cardiovascular: Negative for chest pain. Gastrointestinal: Positive for nausea. Genitourinary: Positive for dysuria, flank pain, frequency, hematuria, pelvic pain and urgency. Musculoskeletal: Negative for back pain. Physical Exam Vitals reviewed. Constitutional: Appearance: Normal appearance. She is well-developed. Cardiovascular: Rate and Rhythm: Normal rate and regular rhythm. Heart sounds: Normal heart sounds. Pulmonary: Effort: Pulmonary effort is normal. Breath sounds: Normal breath sounds. Abdominal: Palpations: Abdomen is soft. Tenderness: There is abdominal tenderness in the suprapubic area. There is right CVA tenderness andleft CVA tenderness. Skin: General: Skin is warm and dry. Neurological: Mental Status: She is alert. Psychiatric: Behavior: Behavior is cooperative. Vitals: 07/10/23 1347 BP: 150/80 Pulse: 96 Resp: 18 Temp: 36.2 ??C (97.2 ??F) TempSrc: Temporal SpO2: 98% Weight: 102.1 kg (225 lb) Height: 167.6 cm (5' 6 ) Recent Results (from the past 4 hour(s)) POCT urinalysis dipstick Collection Time: 07/10/23 1:48 PM Result Value Ref Range Color, Urine, POC Yellow Clarity, ur, POC Cloudy (A) Clear Glucose, ur, POC Negative Negative MG/DL Bilirubin, ur, POC Negative Negative, Small, Moderate, Large Ketones, ur, POC Negative Negative Specific [place], POC 1.025 1.003 - 1.030 Blood, ur, POC Moderate (A) Negative pH, ur, POC 6.5 5.0 - 8.0 Protein, ur, POC Negative Negative Urobilinogen, urine, POC 0.2 0.2 - 1.0 mg/dL Nitrite, ur, POC Negative Negative Leukocytes, ur, POC Negative Negative Lot Number [id number] Assessment/Plan Diagnoses and all orders for this visit: UTI symptoms (Primary) - Urine culture Urine, clean voided; Future - POCT urinalysis dipstick Patient Education: Treatment of urinary symptoms: Take your prescribed antibiotic until it is gone. It is important to read the information provided by your pharmacist about the medications you are being prescribed. If prescribed, you may use Pyridium as needed for burning upon urination- do not use for more than 3 days as this can mask the symptoms of a worsening infection. Pyridium will turn your urine orange. To prevent UTI in the future: Increase your water intake. Urine should be clear or nearly clear. Attempt to empty your bladder every 2-3 hours and do not hold urine for long periods of time. Avoid citrus juices, caffeine, alcohol, and intercourse (bladder irritants) until your symptoms resolve and treatment is complete. Always wipe from front to back. Void before and after intercourse. Avoid tight-fitting jeans, nylon or thong underwear as they can trap moisture and help bacteria grow. Cotton underwear and loose-fitting clothes should be worn. Call you PRIMARY CARE PROVIDER should your symptoms fail to improve or worsen. Go to the ER if you experience any severe pains, fever >101 that does not respond to Motrin or Tylenol, persistent vomiting, or any other worsening symptoms. Disposition Treatment plan including expectations, follow up, and return precautions discussed with patient/parent, verbalizes understanding. Medication dosage, use, and potential adverse reactions discussed with patient/parent. Advised to follow up with PCP if symptoms do not resolve as expected or sooner if condition worsens. Signs/symptoms warranting ER evaluation reviewed. Patient and/or guardian was given an opportunity to ask questions, questions answered. Madeline Bell NP documented in this encounter Miscellaneous Notes * Addendum Note - Madeline Bell NP - 07/10/2023 2:15 PM CDTAddended by: MADELINE BELL on: 07/10/2023 02:08 PM Modules accepted: Orders documented in this encounter Plan of Treatment Not on file documented as of this encounter Procedures Procedure Name Priority Date/Time Associated Diagnosis Comments POCT URINALYSIS DIPSTICK Routine 07/10/2023 1:48 PM CDT UTI symptoms documented in this encounter Results * (ABNORMAL) POCT urinalysis dipstick (07/10/2023 1:48 PM CDT) Color, Urine, POC Yellow Clarity, ur, POC Cloudy(A) Clear Glucose, ur, POC Negative Negative MG/DL Bilirubin, ur, POC Negative Negative, Small, Moderate, Large Ketones, ur, POC Negative Negative Specific [place], POC 1.025 1.003 - 1.030 Blood, ur, POC Moderate(A) Negative pH, ur, POC 6.5 5.0 - 8.0 Protein, ur, POC Negative Negative Urobilinogen, urine, POC 0.2 0.2 - 1.0 mg/dL Nitrite, ur, POC Negative Negative Leukocytes, ur, POC Negative Negative Lot Number [id number] Urine 07/10/2023 1:48 PM CDT Madeline Bell NP POINT OF CARE TEST ORDER HERNÁN Final Result * Urine culture Urine, clean voided (07/10/2023 1:41 PM CDT) Report Final Report: Less than 100,000 colonies/mL (clinically insignificant growth based on current clinical standards) PRISCILA MARSHALL Comment:Testing performed by : [facility], [address] [place]., [address] Organism (CLINICALLY INSIGNIFICANT GROWTH PRISCILA MARSHALL Urine, clean voided 07/10/2023 1:41 PM CDT 07/11/2023 12:33 AM CDT Narrative PRISCILA MARSHALL - 07/12/2023 2:37 PM CDT Testing performed by [facility] ([phone]) Madeline Bell NP LAB MICROBIOLOGY - GENER AL ORDERABLES Final Result PRISCILA MARSHALL [address] Department [place] [address] documented in this encounter Visit Diagnoses Diagnosis Acute cystitis with hematuria- Primary UTI symptoms Antibiotic-induced yeast infection Nausea Nausea alone UTI symptoms documented in this encounter Discontinued Medications Medication Sig Discontinue Reason Start Date End Da te ondansetron ODT (ZOFRAN-ODT) 4 mg disintegrating tablet Dissolve 1 tablet oral every 4 hours as needed for nausea or vomiting. 03/02/2018 07/10/2023 documented as of this encounter Orders Medications Ordered That Janak ht Not Have Been Administered Count Last Ordered Date First Ordered Date ondansetron ODT (ZOFRAN-ODT) disintegrating tablet 4 mg 1 07/10/2023 documented in this encounter Care Teams Dye Operator Relationship Specialty Start Date End Date Pillo [place] [address] PCP - General Family Medicine 11/06/21 documented as of this encounter
--- OUTSIDE RECORDS SUMMARY | 2024-11-13 02:17 | XMS_ITS | Encounter Summary ---
Author Organization [facility] Address [address] [place] [address] Care Team Providers Care Senior Pensions Administrator Name Role Phone Pillo Moody MD Primary Care Provider [phone] Reason for Referral * Diagnostic Imaging (Routine) - Closed Specialty Diagnoses / Procedures Referred By Florian levy Referred To Contact Diagnoses Encounter for screening mammogram for malignant neoplasm of breast Procedures SCREENING MAMMOGRAM BILATERAL W Pillo Box MD [address] [place] [address] Phone: tel: fax: [address] [phone] Referral ID Status Reason Start Date Expiration Date Visits Re quested Visits Authorized [id number] Closed 11/06/2021 12/06/2022 1 1 NESS BANKER Reason for Visit * Diagnostic Imaging (Routine) - Closed Specialty Diagnoses / Procedures Referred By Florian levy Referred To Contact Diagnoses Encounter for screening mammogram for malignant neoplasm of breast Procedures SCREENING MAMMOGRAM BILATERAL W Pillo Box MD [address] [place] [address] Phone: tel: fax: [address] [phone] Referral ID Status Reason Start Date Expiration Date Visits Re quested Visits Authorized [id number] Closed 11/06/2021 12/06/2022 1 1 Encounter Details Date Type Department Care Team (Latest Contact Info) Description 01/02/2022 4:18 PM BUSINESS BANKER - 01/02/2022 11:59 PM BUSINESS BANKER Hospital Encounter [facility] [address] [place] [address] Pillo Moody MD [address] [place] [address] Encounter for screening mammogram for malignant neoplasm of breast Discharge Disposition: Discharge to home or self care Social History Tobacco Use Types Packs/Day Years [...] on file Legal Sex Female 6:03 PM BUSINESS BANKER Gender Identity Not on file Sexual Orientation Not on file documented as of this encounter Medications at Time of Discharge ergocalciferol (VITAMIN D) 50,000 unit capsule Take 1 capsule (50,000 Units total) by mouth 03/04/2018 fexofenadine ([place]) 180 mg tablet Take 1 tablet (180 mg total) by mouth daily as needed (allergies) 90 tablet 3 12/18/2021 3 albuterol HFA (Ventolin HFA) 90 mcg/actuation inhaler Inhale 1 puff every 6 (six) hours as needed for wheezing 3 each 3 12/18/2021 3 amitriptyline (ELAVIL) 25 mg tablet Take 1 tablet (25 mg total) by mouth nightly 90 tablet 1 12/18/2021 2 budesonide-formotero L (Symbicort) 160-4.5 mcg/actuation inhalerIndications:B ronchospasm Prevention with COPD Inhale 2 puffs 2 (two) times a day 3 each 3 12/18/2021 4 busPIRone (BUSPAR) 5 mg tabletIndications:Ge neralized Anxiety Disorder Take 1 tablet (5 mg total) by mouth 3 (three) times a day 4 citalopram (CeleXA) 40 mg tabletIndications:Ge neralized Anxiety Disorder,major depressive disorder Take 1 tablet (40 mg total) by mouth daily 60 tablet 11/06/2021 2 hydroCHLOROthiazide (HYDRODIURIL) 25 mg tablet Take 1 tablet (25 mg total) by mouth daily 90 tablet 3 12/18/2021 3 omeprazole (PriLOSEC) 20 mg capsule Take 1 capsule (20 mg total) by mouth daily 03/04/2018 4 ondansetron ODT (ZOFRAN-ODT) 4 mg disintegrating tablet Dissolve 1 tablet oral every 4 hours as needed for nausea or vomiting. 20 tablet 03/02/2018 3 documented as of this encounter Discharge Disposition Disposition Code Departure Means Destination Discharge to home or self care documented in this encounter Plan of Treatment Not on file documented as of this encounter Procedures Procedure Name Priority Date/Time Associated Diagnosis Comments SCREENING MAMMOGRAM BILATERAL W LULA Schedule Routine, Read Routine (OP Routine) 01/02/2022 4:32 PM BUSINESS BANKER Encounter for screening mammogram for malignant neoplasm of breast documented in this encounter Results * SCREENING MAMMOGRAM BILATERAL W LULA (01/02/2022 4:32 PM BUSINESS BANKER) Anatomical Region Laterality Modality Breast Bilateral Mammography 01/03/2022 11:2 9 AM BUSINESS BANKER Impressions 01/03/2022 11:29 AM BUSINESS BANKER There is no mammographic evidence of malignancy. Routine screening mammography is recommended in 1 year. BI-RADS: 1 - Negative. The patient will be entered into a reminder system with a target due date of 1 year for her next mammogram. Electronically signed by: Mitchell Torres M.D. Narrative 01/03/2022 11:29 AM BUSINESS BANKER EXAMINATION: SCREENING MAMMOGRAM BILATERAL W LULA ORDERING [...] MD IMG MAMMO PROCEDURES Rissa l Result documented in this encounter Visit Diagnoses Diagnosis Encounter for screening mammogram for malignant neoplasm of breast documented in this encounter Care Teams Senior Pensions Administrator Relationship Specialty Start Date End Date [place] [place] [address] PCP - General Family Medicine 11/06/21 documented as of this encounter
--- OUTSIDE RECORDS SUMMARY | 2024-11-13 02:17 | XMS_ITS | Encounter Summary ---
Author Organization [facility] Healthcare Address [address] [place] [address] Care Team Providers Care Medical Dosimetrist Name Role Phone Pillo Lofton MD Primary Care Provider [phone] [phone] Encounter Details Date Type Department Care Team (Latest Contact Info) Description 11/06/2021 10:51 AM INSTRUMENT MAN - 11/06/2021 11:59 PM INSTRUMENT MAN Hospital Encounter [facility] [address] [facility] [address] [place] [address] Pillo Lofton MD [address] [place], [place] [address] [place] [address] Arthralgia of multiple joints; Moderate episode of recurrent major depressive disorder (HCC); Lipid screening; Annual physical exam Discharge Disposition: Discharge to home or self [...] on file Legal Sex Female 6:03 PM INSTRUMENT MAN Gender Identity Not on file Sexual Orientation Not on file documented as of this encounter Medications at Time of Discharge ergocalciferol (VITAMIN D) 50,000 unit capsule Take 1 capsule (50,000 Units total) by mouth 03/04/2018 albuterol HFA (Ventolin HFA) 90 mcg/actuation inhaler 12/18/2017 2 amitriptyline (ELAVIL) 25 mg tablet Take 1 tablet (25 mg total) by mouth nightly 30 tablet 1 11/06/2021 2 budesonide/formotero l fumarate (SYMBICORT INHAL) Inhale 02 2 busPIRone (BUSPAR) 5 mg tabletIndications:Ge neralized Anxiety Disorder Take 1 tablet (5 mg total) by mouth 3 (three) times a day 4 citalopram (CeleXA) 40 mg tabletIndications:Ge neralized Anxiety Disorder,major depressive disorder Take 1 tablet (40 mg total) by mouth daily 60 tablet 11/06/2021 2 omeprazole (PriLOSEC) 20 mg capsule Take 1 [...] Procedure Name Priority Date/Time Associated Diagnosis Comments EGFR Routine 11/06/2021 10:51 AM INSTRUMENT MAN Annual physical exam DIFFERENTIAL AUTO Routine 11/06/2021 10: 51 AM INSTRUMENT MAN Moderate episode of recurrent major depressive disorder (HCC) Annual physical exam CBC WITH AUTO DIFFERENTIAL Routine 11/06/2021 10:51 AM INSTRUMENT MAN Moderate episode of recurrent major depressive disorder (HCC) Annual physical exam ERYTHROCYTE SEDIMENTATION RATE Routine 11/06/2021 10:51 AM INSTRUMENT MAN Arthralgia of multiple joints CRP (ACUTE PHASE) Routine 11/06/2021 10: 51 AM INSTRUMENT MAN Arthralgia of multiple joints TSH Routine 11/06/2021 10:51 AM INSTRUMENT MAN Moderate episode of recurrent major depressive disorder (HCC) LIPID PANEL Routine 11/06/2021 10:51 AM INSTRUMENT MAN Lipid screening COMPREHENSIVE METABOLIC PANEL Routine 11/06/2021 10:51 AM INSTRUMENT MAN Annual physical exam documented in this encounter Results * eGFR (11/06/2021 10:51 AM INSTRUMENT MAN) eGFR 102 mL/min/1. 73 m2 PRISCILA MARSHALL Comment: Interpretive Data Reference Interval Normal ?>/= 90 mL/min/1.73m2 Mildly decreased* ? 60 - 89 mL/min/1.73m2 Mildly to moderately decreased ?45 - 59 mL/min/1.73m2 Moderately to severely decreased ??30 - 44 mL/min/1.73m2 Severely decreased ?15 - 29 mL/min/1.73m2 Kidney Failure ?< 15 ??mL/min/1.73m2 *Relative to young adult level Estimated glomerular filtration rate is determined by the 2020 CKD-EPI equation recommended by the National Kidney Foundation (A Unifying Approach to GFR Estimation: Recommendations of the NKF-ASK Task Force on Reassessing the Inclusion of Race in Diagnosing Kidney Disease, JASN 2020). The CKD-EPI equation should not be used for patients with unstable renal function and has not been validated in children and those over 70. Current interpretive data was last reviewed 2021. Blood 11/06/2021 10:5 1 AM INSTRUMENT MAN 11/06/2021 5:39 PM INSTRUMENT MAN us Pillo Lofton MD LAB BLOOD ORDERABLES Rissa shani Result [facility] [address] [address] Department [place] [address] * (ABNORMAL) Differential, auto (11/06/2021 10:51 AM INSTRUMENT MAN) Neutrophil abs 8.1(H) 1.7 - 6.5 K/cumm CERNER Imm gran abs 0.3(H) 0.0 - 0.1 K/cumm [facility] CH Lymphocyte abs 4.4(H) 0.8 - 3.3 K/cumm [facility] Monocyte abs 0.7 0.2 - 0.8 K/cumm [facility] Eosinophil abs 0.3 0.0 - 0.5 K/cumm [facility] Basophil abs 0.1 0.0 - 0.1 K/cumm [facility] Neutrophil pct 58.2 % CERNER Comment: Interpretive Data Percent cell count reference ranges are not reported, since discordance with absolute values may lead to misinterpretation of CBC data. Current Interpretive Data was last revised on 2018. Imm gran pct 2.0 % [facility] Comment: Interpretive Data Percent cell count reference ranges are not reported, since discordance with absolute values may lead to misinterpretation of CBC data. Current Interpretive Data was last revised on 2018. Lymphocyte pct 32.1 % [facility] Comment: Interpretive Data Percent cell count reference ranges are not reported, since discordance with absolute values may lead to misinterpretation of CBC data. Current Interpretive Data was last revised on 2018. Monocyte pct 5.1 % CERNER Comment: Interpretive Data Percent cell count reference ranges are not reported, since discordance with absolute values may lead to misinterpretation of CBC data. Current Interpretive Data was last revised on 2018. Eosinophil pct 1.8 % [facility] Comment: Interpretive Data Percent cell count reference ranges are not reported, since discordance with absolute values may lead to misinterpretation of CBC data. Current Interpretive Data was last revised on 2018. Basophil pct 0.8 % [facility] Comment: Interpretive Data Percent cell count reference ranges are not reported, since discordance with absolute values may lead to misinterpretation of CBC data. Current Interpretive Data was last revised on 2018. Blood 11/06/2021 10:5 1 AM INSTRUMENT MAN 11/06/2021 5:11 PM INSTRUMENT MAN Pillo Lofton MD LAB BLOOD ORDERABLES Rissa mcleod Result Performing Organization Address [facility] Co de Phone Number PRISCILA MARSHALL [phone] [address] [email or web address] [address] * (ABNORMAL) CBC with auto differential (11/06/2021 10:51 AM INSTRUMENT MAN) WBC 13.8(H) 3.8 - 9.9 K/cumm CERNER [...] CERNER CH Blood 11/06/2021 10:5 1 AM INSTRUMENT MAN 11/06/2021 5:11 PM INSTRUMENT MAN Pillo Lofton MD LAB BLOOD ORDERABLES Rissa mcleod Result Performing Organization Address City/[facility] Co de Phone Number PRISCILA MARSHALL [phone] [address] [email or web address] [place], [place] [id number] * (ABNORMAL) Comprehensive metabolic panel (11/06/2021 10:51 AM INSTRUMENT MAN) Sodium 135 135 - 145 mmol/L CERNER [...] CERNER CH Blood 11/06/2021 10:5 1 AM INSTRUMENT MAN 11/06/2021 5:11 PM INSTRUMENT MAN us Pillo Lofton MD LAB BLOOD ORDERABLES Rissa l Result [facility] [address] [address] Department [place] [address] * (ABNORMAL) Lipid panel (11/06/2021 10:51 AM INSTRUMENT MAN) Cholesterol 187 30 - 199 mg/dL [facility] CH Comment: Interpretive Data Ages < or = [...] on 2018. HDL 60 >=40 mg/dL PRISCILA MARSHALL Comment: Interpretive Data Ages [...] on 2018. LDL, calculated 94 <=129 mg/dL [facility] CH Comment: Interpretive Data Ages < or = [...] CERNER CH Blood 11/06/2021 10:5 1 AM INSTRUMENT MAN 11/06/2021 5:11 PM INSTRUMENT MAN Pillo Lofton MD LAB BLOOD ORDERABLES Rissa l Result PRISCILA [address] [address] [facility] [place] [address] * TSH (11/06/2021 10:51 AM INSTRUMENT MAN) Thyroid Stimulating Hormone 1.53 0.30 - 4.20 mcIUnit/mL C[facility]ER CH Blood 11/06/2021 10:5 1 AM INSTRUMENT MAN 11/06/2021 5:11 PM INSTRUMENT MAN Pillo Lofton MD LAB BLOOD ORDERABLES Rissa l Result Performing Organization Address City/[facility]/ZIP Co de Phone Number [facility] [address] [address] [place] [address] * Erythrocyte sedimentation rate (11/06/2021 10:51 AM INSTRUMENT MAN) Erythrocyte sedimentation rate 10 1 - 20 mm/hr [facility] CH Blood 11/06/2021 10:5 1 AM INSTRUMENT MAN 11/06/2021 5:11 PM INSTRUMENT MAN Pillo Lofton MD LAB BLOOD ORDERABLES Rissa l Result Performing Organization Address City/[facility]/ZIP Co de Phone Number [facility] [address] [address] [place] [address] * CRP (acute phase) (11/06/2021 10:51 AM INSTRUMENT MAN) CRP 9.2 <=10.0 mg/L [facility] CH Blood 11/06/2021 10:5 1 AM INSTRUMENT MAN 11/06/2021 5:11 PM INSTRUMENT MAN Pillo Lofton MD LAB BLOOD ORDERABLES Rissa l Result [facility] [address] [address] [place], [place] [id number] documented in this encounter Visit Diagnoses Diagnosis Arthralgia of multiple joints Pain in joint, multiple sites Moderate episode of recurrent major depressive disorder (HCC) Lipid screening Screening for lipoid disorders Annual physical exam Routine general medical examination at a health care facility documented in this encounter Care Teams Medical Dosimetrist Relationship Specialty Start Date End Date Pillo Lofton MD [address] [place] [address] PCP - General Family Medicine 11/06/21 documented as of this encounter
--- OUTSIDE RECORDS SUMMARY | 2024-11-13 02:17 | XMS_ITS | Encounter Summary ---
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 * Telephone Encounter - Chantale Royal MA - 07/13/2023 10:45 AM CDT ----- Message from Colleen Godoy NP [...] on filedocumented in this encounter Care Teams Bobbin Trucker Relationship Specialty Start Date End Date Pillo Lofton MD [address] [place] [address] PCP - General Family Medicine 11/06/21 documented as of this encounter
--- OUTSIDE RECORDS SUMMARY | 2024-11-13 02:17 | XMS_ITS | Encounter Summary ---
Author Organization 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
--- OUTSIDE RECORDS SUMMARY | 2024-11-13 02:17 | XMS_ITS | Encounter Summary ---
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[employer] Gender Identity Not on file Sexual Orientation Not on file documented as of this encounter Medications at Time of Discharge ergocalciferol (VITAMIN D) 50,000 unit capsule Take 1 capsule (50,000 Units total) by mouth 03/04/2018 nitrofurantoin monohydrate (Macrobid) 100 mg capsuleIndications:A cute cystitis with hematuria Take 1 capsule (100 mg total) by mouth 2 (two) times a day for 5 days 10 capsule 07/10/2023 3 phenazopyridine (Pyridium) 200 mg tabletIndications:Ac ander cystitis with hematuria Take 1 tablet (200 mg total) by mouth 3 (three) times a day as needed for bladder spasms for up to 2 days 6 tablet 07/10/2023 3 albuterol HFA (PROVENTIL HFA,VENTOLIN HFA,PROAIR HFA) 90 mcg/actuation inhaler Inhale 2 puffs every 6 (six) hours as needed for wheezing 3 each 4 03/06/2023 4 amitriptyline (ELAVIL) 25 mg tablet Take 1 tablet by mouth nightly 90 tablet 09/19/2022 4 atomoxetine (STRATTERA) 40 mg capsuleIndications:A ttention-Deficit Hyperactivity Disorder Take 1 capsule (40 mg total) by mouth daily for 14 days 14 capsule 05/09/2023 4 atomoxetine (STRATTERA) 80 mg capsule Take 1 capsule (80 mg total) by mouth daily 90 capsule 1 05/09/2023 4 budesonide-formotero L (Symbicort) 160-4.5 mcg/actuation inhalerIndications:B ronchospasm Prevention with COPD Inhale 2 puffs 2 (two) times a day 3 each 3 12/18/2021 4 busPIRone (BUSPAR) 5 mg tabletIndications:Ge neralized Anxiety Disorder Take 1 tablet (5 mg total) by mouth 3 (three) times a day 4 citalopram (CeleXA) 40 mg tablet Take 1 tablet by mouth once daily 90 tablet 05/03/2023 3 omeprazole (PriLOSEC) 20 mg capsule Take 1 capsule (20 mg total) by mouth daily 03/04/2018 4 ondansetron ODT (ZOFRAN-ODT) 4 mg disintegrating tabletIndications:UT I symptoms,Nausea Take 1 tablet (4 mg total) by mouth every 8 (eight) hours as needed for nausea or vomiting 20 tablet 07/10/2023 4 documented as of this encounter Discharge Disposition Disposition Code Departure Means Destination Discharge to home or self care documented in this encounter Miscellaneous Notes * Result Encounter Note - Bridgett Lin MA - 07/10/2023 11:59 PM CDT Left message to call for results * Result Encounter Note - Chantale Royal MA - 07/10/2023 11:59 PM CDT Patient is aware of urine culture results and has no further questions at this time. documented in this encounter Plan of Treatment Not on file documented as of this encounter Procedures Procedure Name Priority Date/Time Associated Diagnosis Comments URINE CULTURE Routine 07/10/2023 1:41 PM CDT UTI symptoms documented in this encounter Results * Urine culture Urine, clean voided (07/10/2023 1:41 PM CDT) Report Final Report: Less than 100,000 colonies/mL (clinically insignificant growth based on current clinical standards) PRISCILA MARSHALL Comment:Testing performed by : [facility], [address] [place]., [address] Organism (CLINICALLY INSIGNIFICANT GROWTH PRISCILA MARSHALL Urine, clean voided 07/10/2023 1:41 PM CDT 07/11/2023 12:33 AM CDT Narrative PRISCILA MARSHALL - 07/12/2023 2:37 PM CDT Testing performed by [facility] Microbiology Laboratory ([phone]) us Madeline Bell NP LAB MICROBIOLOGY - LYNN AL ORDERABLES Final Result PRISCILA MARSHALL [address] [address] Department [place] [address] documented in this encounter Visit Diagnoses Diagnosis UTI symptoms documented in this encounter Care Teams Cookee Relationship Specialty Start Date End Date Pillo Lofton MD [address] [place] [address] PCP - General Family Medicine 11/06/21 documented as of this encounter
--- OUTSIDE RECORDS SUMMARY | 2024-11-13 02:17 | XMS_ITS | Encounter Summary ---
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 Encounter Details Date Type Department Care Team (Late st Contact Info) Description 10/29/2022 10:45 AM MARINE PIPEFITTER Office Visit [facility] [address] [place] [address] Jeffrey Walter, PA [address] [place] [address] Acute maxillary sinusitis, recurrence not specified (Primary Dx); Flu-like symptoms Social History Tobacco Use Types Packs/Day Years [...] PHQ-2 Answer Date Recorded PHQ-2 Total Score 0 05/02/2022 Comments No Sex and Gender Information Value Date Recorded Sex Assigned at Not on file Legal Sex Female 6:03 PM MARINE PIPEFITTER Gender Identity Not on file Sexual Orientation Not on file documented as of this encounter Last Filed Vital Signs Vital Sign Reading Time Taken Comments Blood Pressure 116/78 10/29/2022 10:58 AM MARINE PIPEFITTER Pulse 73 10/29/2022 10:58 AM MARINE PIPEFITTER Temperature 36.5 ??C (97.7 ??F) 10/29/2022 10:[address] Respiratory Rate 18 10/29/2022 10:58 AM MARINE PIPEFITTER Oxygen Saturation 98% 10/29/2022 10:58 AM MARINE PIPEFITTER Inhaled Oxygen Concentration - - Weight 108.4 kg (239 lb) 10/29/2022 10:58 AM MARINE PIPEFITTER Height 167.6 cm (5' 6 ) 10/29/2022 10:58 AM MARINE PIPEFITTER Body Mass Index 38.58 10/29/2022 10:58 AM MARINE PIPEFITTER documented in this encounter Patient Instructions * Patient Instructions* Jeffrey Walter PA - 10/29/2022 10:45 AM MARINE PIPEFITTER Discussed Completing any meds prescribed Discussed OTC decongestants for congestion- Sudafed/Mucinex/Flonase Motrin/Tylenol for pain/fever Antihistamines- Zyrtec, Benadryl can be used for runny nose. Mucinex Discussed hydration-Drink plenty of water & get plenty of rest A humidifier may also help with congestion May try sinus rinses or steam- Saline rinses Follow up with your PCP in 7 days if you are not getting better NE PIPEFITTER documented in this encounter Ordered Prescriptions Prescription Sig Dispense Quantity Refills Last Filled Start Date End Date sulfamethoxazole-t rimethoprim (BACTRIM DS) 800-160 mg per tabletIndications: Acute maxillary sinusitis, recurrence not specified Take 1 tablet by mouth 2 (two) times a day for 10 days 20 tablet 10/29/2022 11/08/2022 documented in this encounter Progress Notes * Jeffrey Walter PA - 10/29/2022 10:45 AM CST Images from the original note were not included. Subjective/Objective Patient ID: Lore Massey is a 47 y.o. female. 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 Pertinent negatives include no chills, fever, postnasal drip, rhinorrhea, sore throat or wheezing. Review of Systems Constitutional: Positive for fatigue. Negative for appetite change, chills, diaphoresis and fever. HENT: Positive for ear pain and sinus pressure. Negative for congestion, facial swelling, postnasaldrip, rhinorrhea, sinus pain, sneezing and sore throat. Respiratory: Positive for cough and shortness of breath. Negative for wheezing. Gastrointestinal: Negative for abdominal pain, diarrhea, nausea and vomiting. Musculoskeletal: Positive for myalgias. Neurological: Positive for headaches. Physical Exam Vitals reviewed. Constitutional: General: She is not in acute distress. Appearance: Normal appearance. HENT: Head: Comments: Moderate bilateral maxillary sinus tenderness Right Ear: Hearing, tympanic membrane, ear canal and external ear normal. Left Ear: Hearing, tympanic membrane, ear canal and external ear normal. Nose: No congestion or rhinorrhea. Right Sinus: No maxillary sinus tenderness or frontal sinus tenderness. Left Sinus: No maxillary sinus tenderness or frontal sinus tenderness. Mouth/Throat: Pharynx: Posterior oropharyngeal erythema present. No pharyngeal swelling, oropharyngeal exudate oruvula swelling. Eyes: General: Right eye: No discharge. Left eye: No discharge. Cardiovascular: Rate and Rhythm: Normal rate and regular rhythm. Pulmonary: Breath sounds: Normal breath sounds and air entry. Abdominal: Tenderness: There is no abdominal tenderness. Lymphadenopathy: Cervical: No cervical adenopathy. Skin: General: Skin is warm and dry. Neurological: Mental Status: She is alert. Mental status is at baseline. Psychiatric: Attention and Perception: Attention normal. Mood and Affect: Mood normal. Speech: Speech normal. Vitals: 10/29/22 1058 BP: 116/78 Pulse: 73 Resp: 18 Temp: 36.5 ??C (97.7 ??F) TempSrc: Tympanic SpO2: 98% Weight: 108.4 kg (239 lb) Height: 167.6 cm (5' 6 ) Assessment/Plan Flu is negative Rx for Bactrim DS sent to pharmacy Discussed Completing any meds prescribed Discussed OTC decongestants for congestion- Sudafed/Mucinex/Flonase Motrin/Tylenol for pain/fever Antihistamines- Zyrtec, Benadryl can be used for runny nose. Mucinex Discussed hydration-Drink plenty of water & get plenty of rest A humidifier may also help with congestion May try sinus rinses or steam- Saline rinses Follow up with your PCP in 7 days if you are not getting better Diagnoses and all orders for this visit: Acute maxillary sinusitis, recurrence not specified (Primary) - sulfamethoxazole-trimethoprim (BACTRIM DS) 800-160 mg per tablet; Take 1 tablet by mouth 2 (two) times a day for 10 days Flu-like symptoms - POCT influenza A/B Recent Results (from the past 4 hour(s)) POCT influenza A/B Collection Time: 10/29/22 11:30 AM Result Value Ref Range Rapid Influenza A Ag Negative Negative, Invalid Rapid Influenza B Ag Negative Negative, Invalid Patient Education: Disposition Treatment plan including expectations, follow up, and return precautions discussed with patient/parent, verbalizes understanding. Medication dosage, use, and potential adverse reactions discussed with patient/parent. Advised to follow up with PCP if symptoms do not resolve as expected or sooner if condition worsens. Signs/symptoms warranting ER evaluation reviewed. Patient and/or guardian was given an opportunity to ask questions, questions answered. KRISTINA Shea NE PIPEFITTER documented in this encounter Plan of Treatment Not on file documented as of this encounter Procedures Procedure Name Priority Date/Time Associated Diagnosis Comments POCT INFLUENZA A/B Routine 10/29/2022 11 :30 AM MARINE PIPEFITTER Flu-like symptoms documented in this encounter Results * POCT influenza A/B (10/29/2022 11:30 AM MARINE PIPEFITTER) Rapid Influenza A Ag Negative Negative, Invalid Rapid Influenza B Ag Negative Negative, Invalid Nasopharyngeal 10/29/2022 11 :30 AM MARINE PIPEFITTER Jeffrey ACEVEDO POINT OF CARE TEST ORDERABLES Final Result documented in this encounter Visit Diagnoses Diagnosis Acute maxillary sinusitis, recurrence not specified- Primary Flu-like symptoms documented in this encounter Care Teams Night Custodian Relationship Specialty Start Date End [place] [address] PCP - General Family Medicine 11/06/21 documented as of this encounter
--- OUTSIDE RECORDS SUMMARY | 2024-11-13 02:17 | XMS_ITS | Encounter Summary ---
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
--- OUTSIDE RECORDS SUMMARY | 2024-11-13 02:17 | XMS_ITS | Encounter Summary ---
Author Organization [facility] Address [address] [facility] [address] [place] [address] Care Team Providers Care Fuel Efficient Automobile Designer Name Role Phone Pillo Lofton MD Primary Care Provider [phone] [phone] Reason for Visit * Reason Comments Follow-up Patient states she h as been unable to go to PT due to her work schedule but she has been doing at home exercises and with doing so has more ROM. Lab Results Patient would like t o know the results of her previous labs. Encounter Details Date Type Department Care Team (Late st Contact Info) Description 05/02/2022 4:00 PM CDT Office Visit [facility] [address] [address] Pillo Lofton MD [address] [place] [address] Hypertension, essential (Primary Dx); Encounter for colorectal cancer screening; Class 3 severe obesity due to excess calories with serious comorbidity and body mass index (BMI) of 40.0 to 44.9 in adult (HCC); Moderate episode of recurrent major depressive disorder (HCC); Primary osteoarthritis involving multiple joints; Moderate persistent asthma without complication Social History [...] on file Legal 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 Gender Identity Not on file Sexual Orientation Not on file documented as of this encounter Last Filed Vital Signs Vital Sign Reading Time Taken Comments Blood Pressure 108/78 05/02/2022 4:09 PM CDT Pulse 91 05/02/2022 4:09 PM CDT Temperature - - Respiratory Rate 16 05/02/2022 4:09 PM CDT Oxygen Saturation 95% 05/02/2022 4:09 PM CDT Inhaled Oxygen Concentration - - Weight 118.2 kg (260 lb 9.6 oz) 05/02/2022 4:09 PM CDT Height 167.6 cm (5' 6 ) 05/02/2022 4:09 PM CDT Body Mass Index 42.06 05/02/2022 4:09 PM CDT documented in this encounter Progress Notes * Pillo Lofton MD - 05/02/2022 4:00 PM CDT Images from the original note were not included. Subjective/Objective Patient ID: Lore Massey is a 47 y.o. female. Chief Complaint Chief Complaint Patient presents with ??? Follow-up Patient states she has been unable to go to PT due to her work schedule but she has been doing at home exercises and with doing so has more ROM. ??? Lab Results Patient would like to know the results of her previous labs. HPI HPI Patient is a 47 year old female, presenting for management of chronic medical conditions. HTN: -stable, well controlled; Obesity; -has been making some changes, started to write everything down -has been having improved sensation MDD: -has been having improved moods with amitriptyline at bedtime -stable on Celexa Osteoarthritis: -has continued HEP, improved ROM in right shoulder Asthma: -well controlled with Symbicort -rare use of albuterol Current Outpatient Medications Medication Sig Dispense Refill ??? albuterol HFA (Ventolin HFA) 90 mcg/actuation inhaler Inhale 1 puff every 6 (six) hours as needed for wheezing 3 each 3 ??? amitriptyline (ELAVIL) 25 mg tablet Take 1 tablet (25 mg total) by mouth nightly 90 tablet 1 ??? budesonide-formoteroL (Symbicort) 160-4.5 mcg/actuation inhaler Inhale 2 puffs 2 (two) times a day 3 each 3 ??? busPIRone (BUSPAR) 5 mg tablet Take 5 mg by mouth 3 (three) times a day ??? citalopram (CeleXA) 40 mg tablet Take 1 tablet by mouth once daily 60 tablet 0 ??? ergocalciferol (VITAMIN D) 50,000 unit capsule Take 1 capsule by mouth ??? fexofenadine (GE[place]) 180 mg tablet Take 1 tablet (180 mg total) by mouth daily as needed (allergies) 90 tablet 3 ??? hydroCHLOROthiazide (HYDRODIURIL) 25 mg tablet Take 1 tablet (25 mg total) by mouth daily 90 tablet 3 ??? omeprazole (PriLOSEC) 20 mg capsule Take 20 mg by mouth daily ??? ondansetron ODT (ZOFRAN-ODT) 4 mg disintegrating tablet Dissolve 1 tablet oral every 4 hours asneeded for nausea or vomiting. 20 tablet 0 No current facility-administered medications for this visit. Allergies as of 05/02/2022 - Reviewed 05/02/2022 Allergen Reaction Noted ??? Penicillins Hives, Shortness of breath, and Edema 03/02/2018 Review of Systems Constitutional: Negative for activity change, chills and fever. HENT: Negative for sore throat. Respiratory: Negative for cough and shortness of breath. Gastrointestinal: Negative for abdominal pain, constipation, diarrhea, nausea and vomiting. Musculoskeletal: Negative for arthralgias and myalgias. BP 108/78 (BP Location: Right arm, Patient Position: Sitting) Pulse 91 Resp 16 Ht 167.6 cm (5' 6 ) Wt 118.2 kg (260 lb 9.6 oz) SpO2 95% BMI 42.06 kg/m?? Physical Exam Vitals reviewed. Constitutional: Appearance: [...] Diagnoses and all orders for this visit: Hypertension, essential (Primary) Assessment & Plan: Stable, well controlled; blood pressure at target Continue hydrochlorothiazide 25 mg daily Encounter for colorectal cancer screening Class 3 severe obesity due to excess calories with serious comorbidity and body mass index (BMI) of40.0 to 44.9 in adult (HCC) Assessment & Plan: Stable, patient started to make some changes, including writing down everything she eats Patient reports improved sensation of understanding when she is full and does need any further Continue to encourage self reflection on saiety as well as food diaries Moderate episode of recurrent major depressive disorder (HCC) Assessment & Plan: Stable, well controlled; patient reports that her moods have improved Continue amitriptyline 25 mg nightly; Celexa 40 mg daily Primary osteoarthritis involving multiple joints Assessment & Plan: Patient is unable to complete some physical therapy due to work schedule; however continues home exercises Patient reports improved range of motion right shoulder Moderate persistent asthma without complication Assessment & Plan: Stable, well controlled; patient reports rare exacerbations Continue Symbicort 2 puffs b.i.d., albuterol p.r.n.; [place] 180 mg daily No follow-ups on file. Pillo Lofton MD * Taylor Alvarado MA - 05/02/2022 4:00 PM CDT 06-06-2022 Mailed overdue order with letter to patient documented in this encounter Miscellaneous Notes * Assessment & Plan Note - Pillo Lofton MD - 05/07/2022 2:42 PM CDT Associated Problem(s): Moderate persistent asthma without complication Stable, well controlled; patient reports rare exacerbations Continue Symbicort 2 puffs b.i.d., albuterol p.r.n.; [place] 180 mg daily * Assessment & Plan Note - Pillo Lofton MD - 05/07/2022 2:42 PM CDT Associated Problem(s): Primary osteoarthritis involving multiple joints Patient is unable to complete some physical therapy due to work schedule; however continues home exercises Patient reports improved range of motion right shoulder * Assessment & Plan Note - Pillo Lofton MD - 05/07/2022 2:41 PM CDT Associated Problem(s): Moderate episode of recurrent major depressive disorder (HCC) Stable, well controlled; patient reports that her moods have improved Continue amitriptyline 25 mg nightly; Celexa 40 mg daily * Assessment & Plan Note - Pillo Lofton MD - 05/07/2022 2:41 PM CDT Associated Problem(s): Class 2 severe obesity due to excess calories with serious comorbidity and body mass index (BMI) of 36.0 to 36.9 in adult (HCC) Stable, patient started to make some changes, including writing down everything she eats Patient reports improved sensation of understanding when she is full and does need any further Continue to encourage self reflection on saiety as well as food diaries * Assessment & Plan Note - Pillo Lofton MD - 05/07/2022 2:40 PM CDT Associated Problem(s): Hypertension, essential Stable, well controlled; blood pressure at target Continue hydrochlorothiazide 25 mg daily documented in this encounter Plan of Treatment Not on file documented as of this encounter Visit Diagnoses Diagnosis Hypertension, essential- Primary Unspecified essential hypertension Encounter for colorectal cancer screening Class 3 severe obesity due to excess calories with serious comorbidity and body mass index (BMI) of 40.0 to 44.9 in adult (HCC) Moderate episode of recurrent major depressive disorder (HCC) Primary osteoarthritis involving multiple joints Moderate persistent asthma without complication documented in this encounter Care Teams Fuel Efficient Automobile Designer Relationship Specialty Start Date End Date Pillo Lofton MD [address] [place] [address] PCP - General Family Medicine 11/06/21 documented as of this encounter
--- OUTSIDE RECORDS SUMMARY | 2024-11-13 02:17 | XMS_ITS | Encounter Summary ---
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 Zofran helping the nausea but the pain is into both flanks as well as back since yesterday . Periods of feeling clammy but hard to tell if have temperature or just excessive heat. Denies visible blood in urine urgency frequency burning Scheduled appointment with Dr Lofton for 07/14/2023 for 2 :00pm Instructed to complete antibiotic take Zofran for nausea Tylenol for pain adequate hydration and iffurther questions to call back verbalized understanding and will follow Reason for Disposition [1] Follow-up call to recent contact AND [2] information only call, no triage required Protocols used: Information Only Call - No [id number] * Telephone Encounter - Yanni Marcelino RN - 07/12/2023 4:18 PM CDT Regarding: Test results ----- Message from Louise Pickett sent at 07/12/2023 4:18 PM CDT ----- Re: returning call about test results documented in this encounter Plan of Treatment Not on file documented as of this encounter Visit Diagnoses Not on filedocumented in this encounter Care Teams Griddle Cook Relationship Specialty Start Date End [place] [address] PCP - General Family Medicine 11/06/21 documented as of this encounter
--- OUTSIDE RECORDS SUMMARY | 2024-11-13 02:17 | XMS_ITS | Encounter Summary ---
Author Organization [facility] Address [address] [facility] [address] [place] [address] Care Team Providers Care Electronic News Gathering Editor Name Role Phone Pillo Lofton MD Primary Care Provider [phone] Reason for Visit * Reason Onset Date Comments Prior Auth 02/25/2022 Albuterol Inhale r Encounter Details Date Type Department Care Team (Late st Contact Info) Description 02/25/2022 Telephone [facility] [address] [place] [address] Pillo Lofton MD [address] [place] [address] Prior Auth (Albuterol Inhaler) Social History Tobacco Use Types Packs/Day Years [...] points, staff should administer the PHQ-9) 2 02/25/2022 Comments No Sex and Gender Information Value Date Recorded Sex Assigned at Not on file 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 Spoke w/pharmacy they said pt picked script up on 01/14/22 for 3 and on 02/18/22 was requesting them because she lost some of them and was requesting too soon, so pt opted to pay out of pocket for 2 inhalers. Thanks Consuelo documented in this encounter Plan of Treatment Not on file documented as of this encounter Visit Diagnoses Not on filedocumented in this encounter Care Teams Electronic News Gathering Editor Relationship Specialty Start Date End Date [place] [address] PCP - General Family Medicine 11/06/21 documented as of this encounter
--- OUTSIDE RECORDS SUMMARY | 2024-11-13 02:17 | XMS_ITS | Encounter Summary ---
Author Organization [facility] Address [address] [facility] [address] [place] [address] Care Team Providers Care Garage Manager Name Role Phone Pillo Lofton MD Primary Care Provider [phone] [phone] Reason for Visit * Reason Comments Shoulder Pain Right shoulder pain, Continued sinus issues. 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 Gender Identity Not on file Sexual Orientation Not on file documented as of this encounter Last Filed Vital Signs Vital Sign Reading Time Taken Comments Blood Pressure 126/88 02/25/2022 12:42 PM CDT Pulse 82 02/25/2022 12:42 PM CDT Temperature 36.6 ??C (97.8 ??F) 02/25/2022 12:42 PM C DT Respiratory Rate 16 02/25/2022 12:42 PM CDT Oxygen Saturation 98% 02/25/2022 12:42 PM CDT Inhaled Oxygen Concentration - - Weight 115.2 kg (254 lb) 02/25/2022 12:42 PM CDT Height 167.6 cm (5' 6 ) 02/25/2022 12:42 PM CDT Body Mass Index 41 02/25/2022 12:42 PM CDT documented in this encounter Ordered Prescriptions Prescription Sig Dispense Quantity Refills Last Filled Start Date End Date amoxicillin (AMOXIL) 875 mg tablet Take 1 tablet (875 mg total) by mouth 2 (two) times a day for 10 days 20 tablet 02/25/2022 03/07/2022 documented in this encounter Progress Notes * Pillo Lofton MD - 02/25/2022 12:45 PM CDT Images from the original note were not included. Subjective/Objective Patient ID: Lore Massey is a 47 y.o. female. Chief Complaint Chief Complaint Patient presents with ??? Shoulder Pain Right shoulder pain, Continued sinus issues. HPI HPI Patient is a 47 year old female, presenting for concerns for right shoulder pain. Right Shoulder Pain: -has been having worsening pain and decreased ROM in right shoulder for one week -pain is present all of the time, but worse with movement and use -has been using and ice and heat and Mobic, no relief -has known calcifications in right shoulder Sinus Issues: -started one week ago; worse with change in seasons; sore throat, significant congestion and headaches -taking Flonase, [place], Mucinex and Sinus medication; has ear pains/fullness, some fever blisters Current Outpatient Medications Medication Sig Dispense Refill [...] mouth 3 (three) times a day ??? ergocalciferol (VITAMIN D) 50,000 unit capsule [...] nausea or vomiting. 20 tablet 0 ??? amoxicillin (AMOXIL) 875 mg tablet Take 1 tablet (875 mg total) by mouth 2 (two) times a day for 10 days 20 tablet 0 ??? citalopram (CeleXA) 40 mg tablet Take 1 tablet (40 mg total) by mouth daily 60 tablet 0 No current facility-administered medications for this visit. Allergies as of 02/25/2022 - Reviewed 02/25/2022 Allergen Reaction Noted ??? Penicillins Hives, Shortness of breath, and Edema 03/02/2018 Review of Systems Constitutional: Negative for activity change, chills and fever. HENT: Positive for congestion, sinus pressure and sinus pain. Negative for sore throat. Respiratory: Negative for cough and shortness of breath. Gastrointestinal: Negative for abdominal pain, constipation, diarrhea, nausea and vomiting. Musculoskeletal: Positive for arthralgias. Negative for myalgias. Psychiatric/Behavioral: Negative for agitation. BP 126/88 (BP Location: Left arm, Patient Position: Sitting) Pulse 82 Temp 36.6 ??C (97.8 ??F) (Oral) Resp 16 Ht 167.6 cm (5' 6 ) Wt 115.2 kg (254 lb) SpO2 98% BMI 41.00 kg/m?? Physical Exam Vitals reviewed. Constitutional: Appearance: Normal appearance. HENT: Head: Normocephalic and atraumatic. Right Ear: A middle ear effusion is present. Tympanic membrane is not injected or retracted. Abdominal: General: Abdomen is flat. Musculoskeletal: General: Normal range of motion. Comments: Right shoulder, limited AROM 2/2 pain; full PROM -pain along biceps tendon and at insertion Skin: General: Skin is warm and dry. Neurological: General: No focal deficit present. Mental Status: She is alert and oriented to person, place, and time. Psychiatric: Mood and Affect: Mood normal. Behavior: Behavior normal. Thought Content: Thought content normal. Diagnoses and all orders for this visit: Biceps tendonitis on right (Primary) Comments: Right shoulder pain consistent with biceps tendinitis; refer to physical therapy Orders: - Ambulatory referral order to Physical Therapy -; Future Acute recurrent frontal sinusitis Assessment & Plan: Patient continues to have significant sinus congestion drainage; mostly related change in season; patient reports right ear pain and fullness, with noted middle ear effusion noted Will start amoxicillin 875 b.i.d. dosing for days for possible middle ear infection as well as chronic sinusitis Will follow-up in 6-8 weeks; discussed with patient would benefit from further evaluation by ENT for nasal polyposis Other orders - amoxicillin (AMOXIL) 875 mg tablet; Take 1 tablet (875 mg total) by mouth 2 (two) times a day for10 days Return in about 2 months (around 04/27/2022). Pillo Lofton MD documented in this encounter Miscellaneous Notes * Assessment & Plan Note - Pillo Lofton MD - 02/25/2022 2:36 PM CDT Associated Problem(s): Acute recurrent frontal sinusitis Patient continues to have significant sinus congestion drainage; mostly related change in season; patient reports right ear pain and fullness, with noted middle ear effusion noted Will start amoxicillin 875 b.i.d. dosing for days for possible middle ear infection as well as chronic sinusitis Will follow-up in 6-8 weeks; discussed with patient would benefit from further evaluation by ENT for nasal polyposis documented in this encounter Plan of Treatment Not on file documented as of this encounter Visit Diagnoses Diagnosis Biceps tendonitis on right- Primary Acute recurrent frontal sinusitis documented in this encounter Care Teams Garage Manager Relationship Specialty Start Date End Date [place] [address] PCP - General Family Medicine 11/06/21 documented as of this encounter
--- OUTSIDE RECORDS SUMMARY | 2024-11-13 02:17 | XMS_ITS | Encounter Summary ---
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 Gender Identity Not on file Sexual Orientation Not on file documented as of this encounter Ordered Prescriptions Prescription Sig Dispense Quantity Refills Last Filled Start Date End Date albuterol HFA (PROVENTIL HFA,VENTOLIN HFA,PROAIR HFA) 90 mcg/actuation inhaler Inhale 2 puffs every 6 (six) hours as needed for wheezing 3 each 4 03/06/2023 documented in this encounter Miscellaneous Notes * Addendum Note - Pillo Moody MD - 03/06/2023 1:00 PM CDTAddended by: PILLO MOODY on: 03/06/2023 01:00 PM Modules accepted: Orders * Telephone Encounter - Tessie Engel MA - 03/06/2023 9:14 AM CDT The recommendations for patient Inhaler have changed per insurance this year. The recommendations they denial gave where (Available Formulary Alternatives: albuterol sulfate CFC-free aerosol (except NDC 31553964892), levalbuterol tartrate CFC-free aerosol) She hasn't had a bad reaction to either in the past just changes from insurance. Tessie Engel * Telephone Encounter - Tessie Engel MA - 03/05/2023 3:56 PM CDT Got patients prior auth for patients Albuterol HFA. The patient has taken over a year with success.Never needed prior authorization in the past. The blow was stated on the Authorization for their formulary. Did send back with information on continuous usage with same product and worked well for patient. (Available Formulary Alternatives: albuterol sulfate CFC-free aerosol (except NDC 76379591561), levalbuterol tartrate CFC-free aerosol) [place]: [id number] Tessie Engel documented in this encounter Plan of Treatment Not on file documented as of this encounter Visit Diagnoses Not on filedocumented in this encounter Discontinued Medications Medication Sig Discontinue Reason Start Date End Da te albuterol HFA (Ventolin HFA) 90 mcg/actuation inhaler Inhale 1 puff every 6 (six) hours as needed for wheezing 12/18/2021 03/06/2023 documented as of this encounter Care Teams Specialty Person Relationship Specialty Start Date [place] [address] PCP - General Family Medicine 11/06/21 documented as of this encounter
--- OUTSIDE RECORDS SUMMARY | 2024-11-13 02:17 | XMS_ITS | Encounter Summary ---
Author Organization 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 Onset feeling unwell 10-25-22. Symptoms have included wheezing, cough, lung congestion, sinus congestion, headache, nausea. Works in a [employer]. Has tested negative for Covid. No appointment in Dr. Lofton's office today. She accepts 10:45 appointment at [facility]. Additional recommendations reviewed with caller: rest, drink plenty of water to stay well hydrated,call back if symptoms persist or worsen. Reason for Disposition Patient wants to be seen Protocols used: Asthma Gybarr-[id number] ELING PASSENGER AGENT * Telephone Encounter - Nidia Crump RN - 10/29/2022 8:27 AM TRAVELING PASSENGER AGENT Regarding: wheezing ----- Message from Amber Gaytan sent at 10/29/2022 8:24 AM TRAVELING PASSENGER AGENT ----- Symptom Based Call Chief Complaint: wheezing Did you review 911/Red Flag List?Yes Duration: Last Friday Why was appointment not scheduled? Red flag Caller's Callback #: [phone] Additional Comments: symptoms began on Friday and her eye swelled shut on Friday- some drainage in the corner more in the am or after lying down. She has dark circles around her eyes- she tends toget these when she gets sick , has a mild headache, has some wheezing, she has asthma, has been doing her treatments once a day. Has some nausea off and on - no vomiting or diarrhea no fever Does message need to be routed? Yes-Action Needed ELING PASSENGER AGENT documented in this encounter Plan of Treatment Not on file documented as of this encounter Visit Diagnoses Not on filedocumented in this encounter Care Teams Alumni Secretary Relationship Specialty Start Date End Date Pillo Lofton MD [address] [address] PCP - General Family Medicine 11/06/21 documented as of this encounter
--- OUTSIDE RECORDS SUMMARY | 2024-11-13 02:17 | XMS_ITS | Encounter Summary ---
Author Organization [facility] Medical [facility] Address [address] [place] [address] Care Team Providers Care Extruder Operator Multiple Name Role Phone Pillo Lofton MD Primary Care Provider [phone] Reason for Visit * Reason Onset Date Comments Prior Auth 03/12/2023 ALBUTEROL Encounter Details Date Type Department Care Team (Late st Contact Info) Description 03/12/2023 Telephone [facility] [address] [place] [address] Pillo Lofton MD [address] [place] [address] Prior Auth (ALBUTEROL) Social History Tobacco Use Types Packs/Day Years [...] on file 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 * Telephone Encounter - Taylor Alvarado MA - 03/14/2023 1:30 PM CDT Spoke to patient. She states the pharm called and informed her of the same thing. Patient states she got a notification that the inhaler had been filled and will cost $12.50. Patient states she will go by the pharmacy to try and pick up man rx and will call back to let me know what the outcome is and if we need to send in alternative. * Telephone Encounter - Taylor Alvarado MA - 03/13/2023 11:51 AM CDT PA for Albuterol Sulfate was denied. PA denial scanned in patient chart. * Telephone Encounter - Consuelo Ward MA - 03/12/2023 10:47 AM CDT SENT PA THROUGH [facility], AWAITING RESPONSE THANKS documented in this encounter Plan of Treatment Not on file documented as of this encounter Visit Diagnoses Not on filedocumented in this encounter Care Teams Extruder Operator Multiple Relationship Specialty Start Date End Date [place] [address] PCP - General Family Medicine 11/06/21 documented as of this encounter
--- OUTSIDE RECORDS SUMMARY | 2024-11-13 02:17 | XMS_ITS | Encounter Summary ---
Author Organization [facility] Medical [facility] Address [address] [place] [address] Care Team Providers Care Clinical Therapist Name Role Phone Pillo Lofton MD Primary Care Provider [phone] Reason for Visit * Reason Comments Hypertension 6 mo follow up Encounter Details Date Type Department Care Team (Late st Contact Info) Description 11/06/2022 4:00 PM TRADE EMBALMER Office Visit [facility] [address] [place] [address] Pillo Lofton MD [address] [place] [id number] Hypertension, essential (Primary Dx); Class 2 severe obesity due to excess calories with serious comorbidity and body mass index (BMI) of 38.0 to 38.9 in adult (HCC); Moderate episode of recurrent major depressive disorder (HCC); Moderate persistent asthma without complication Social History [...] on file Legal Sex Female 6:03 PM TRADE EMBALMER Gender Identity Not on file Sexual Orientation Not on file documented as of this encounter Last Filed Vital Signs Vital Sign Reading Time Taken Comments Blood Pressure 110/60 11/06/2022 4:02 PM TRADE EMBALMER Pulse 82 11/06/2022 4:02 PM TRADE EMBALMER Temperature 37 ??C (98.6 ??F) 11/06/2022 4:02 PM TRADE EMBALMER Respiratory Rate 16 11/06/2022 4:02 PM TRADE EMBALMER Oxygen Saturation 97% 11/06/2022 4:02 PM TRADE EMBALMER Inhaled Oxygen Concentration - - Weight 107.8 kg (237 lb 9.6 oz) 11/06/2022 4:02 PM TRADE EMBALMER Height 167.6 cm (5' 6 ) 11/06/2022 4:02 PM TRADE EMBALMER Body Mass Index 38.35 11/06/2022 4:02 PM TRADE EMBALMER documented in this encounter Progress Notes * Pillo Lofton MD - 11/06/2022 4:00 PM CST Images from the original note were not included. Subjective/Objective Patient ID: Lore Massey is a 47 y.o. female. Chief Complaint Chief Complaint Patient presents with Hypertension 6 mo follow up HPI HPI Patient is 47 year old female, presenting for management of chronic medical conditions. Has noted flank pain and joint pain with eating sugar. - HTN: -well controlled; bp at target, no orthostatics Obesity: -has been having weight loss; cutting back on sugar -maintaining regular exercise for ROM and increased activity at work -using standing work station MDD: -mood is improving with weight loss -has some seasonal changes; impacted by holidays, stress around holidays Asthma: -well controlled; had some respiratory symptoms -has some worsening symptoms in dry heat; but improves with treatments -Symbicort daily Current Outpatient Medications Medication Sig Dispense Refill albuterol HFA (Ventolin HFA) 90 mcg/actuation inhaler Inhale 1 puff every 6 (six) hours as needed for wheezing 3 each 3 amitriptyline (ELAVIL) 25 mg tablet Take 1 tablet by mouth nightly 90 tablet 0 budesonide-formoteroL (Symbicort) 160-4.5 mcg/actuation inhaler Inhale 2 puffs 2 (two) times a day 3 each 3 busPIRone (BUSPAR) 5 mg tablet Take 5 mg by mouth 3 (three) times a day ergocalciferol (VITAMIN D) 50,000 unit capsule Take 1 capsule by mouth hydroCHLOROthiazide (HYDRODIURIL) 25 mg tablet Take 1 tablet (25 mg total) by mouth daily 90 tablet3 omeprazole (PriLOSEC) 20 mg capsule Take 20 mg by mouth daily ondansetron ODT (ZOFRAN-ODT) 4 mg disintegrating tablet Dissolve 1 tablet oral every 4 hours as needed for nausea or vomiting. 20 tablet 0 citalopram (CeleXA) 40 mg tablet Take 1 tablet by mouth once daily 60 tablet 0 No current facility-administered medications for this visit. Allergies as of 11/06/2022 - Reviewed 11/06/2022 Allergen Reaction Noted Penicillins Hives, Shortness of breath, and Edema 03/02/2018 Review of Systems Constitutional: Negative for activity change, chills and fever. HENT: Negative for sore throat. Respiratory: Negative for cough and shortness of breath. Gastrointestinal: Negative for abdominal pain, constipation, diarrhea, nausea and vomiting. Musculoskeletal: Negative for arthralgias and myalgias. Neurological: Negative for light-headedness and headaches. Psychiatric/Behavioral: Positive for dysphoric mood. Negative for sleep disturbance. The patient isnot nervous/anxious. BP 110/60 (BP Location: Right arm, Patient Position: Sitting) Pulse 82 Temp 37 ??C (98.6 ??F) (Oral) Resp 16 Ht 167.6 cm (5' 6 ) Wt 107.8 kg (237 lb 9.6 oz) SpO2 97% BMI 38.35 kg/m?? Physical Exam Vitals reviewed. Constitutional: Appearance: [...] (Primary) Assessment & Plan: Stable, well controlled; bp at target with no orthostatics Continue HCTZ 25 mg daily, Orders: - Lipid panel; Future - Comprehensive metabolic panel; Future - CBC with auto differential; Future Class 2 severe obesity due to excess calories with serious comorbidity and body mass index (BMI) of38.0 to 38.9 in adult (HCC) Assessment & Plan: Has been working on weight loss; cutting back on sugar; maintain regular exercise; using standing work station Moderate episode of recurrent major depressive disorder (HCC) Assessment & Plan: Stable, improving; improved depression with weight loss Some seasonal change and sterssors related to holidays Continue amitriptyline 25 mg nightly; citalopram 40 mg daily Moderate persistent asthma without complication Assessment & Plan: Stable, well controlled; erare respiratory symptoms; worse in dry heat Continue symbicort 2 puff bid Return in about 6 months (around 05/07/2023). Pillo Lofton MD E EMBALMER documented in this encounter Miscellaneous Notes * Assessment & Plan Note - Pillo Lofton MD - 12/24/2022 9:12 PM TRADE EMBALMER Associated Problem(s): Moderate persistent asthma without complication Stable, well controlled; erare respiratory symptoms; worse in dry heat Continue symbicort 2 puff bid E EMBALMER * Assessment & Plan Note - Pillo Lofton MD - 12/24/2022 9:10 PM TRADE EMBALMER Associated Problem(s): Moderate episode of recurrent major depressive disorder (HCC) Stable, improving; improved depression with weight loss Some seasonal change and sterssors related to holidays Continue amitriptyline 25 mg nightly; citalopram 40 mg daily E EMBALMER * Assessment & Plan Note - Pillo Lofton MD - 12/24/2022 9:10 PM TRADE EMBALMER Associated Problem(s): Class 2 severe obesity due to excess calories with serious comorbidity and body mass index (BMI) of 36.0 to 36.9 in adult (HCC) Has been working on weight loss; cutting back on sugar; maintain regular exercise; using standing work station E EMBALMER * Assessment & Plan Note - Pillo Lofton MD - 12/24/2022 9:09 PM TRADE EMBALMER Associated Problem(s): Hypertension, essential Stable, well controlled; bp at target with no orthostatics Continue HCTZ 25 mg daily, E EMBALMER documented in this encounter Plan of Treatment Not on file documented as of this encounter Visit Diagnoses Diagnosis Hypertension, essential- Primary Unspecified essential hypertension Class 2 severe obesity due to excess calories with serious comorbidity and body mass index (BMI) of 38.0 to 38.9 in adult (HCC) Moderate episode of recurrent major depressive disorder (HCC) Moderate persistent asthma without complication documented in this encounter Care Teams Clinical Therapist Relationship Specialty Start Date End Date [place] [address] PCP - General Family Medicine 11/06/21 documented as of this encounter
--- OUTSIDE RECORDS SUMMARY | 2024-11-13 02:18 | XMS_ITS | Encounter Summary ---
Author Organization [facility] Care Team Providers Care Pipe Bender Name Role Phone Unavailable Primary Care Provider Unavailabl e Encounter Details Date Type Department Care Team (Late st Contact Info) Description 09/17/2013 9:34 AM CDT - 09/17/2013 6:07 PM CDT Hospital Encounter [facility] Ovi Rodriguez MD [address] [facility] [address] [place] [address] Abdominal pain; Asthma; Tubal ligation status; Acquired absence of genital organ; Encounter for long-term (current) use of other medications Social History Tobacco Use Types Packs/Day Years Used Date Smoking Tobacco: Never Assessed Comments Unknown Sex and Gender Information Value Date Recorded Sex Assigned at Not on file Legal Sex Female 6:03 PM [employer] Gender Identity Not on file Sexual Orientation Not on file documented as of this encounter Plan of Treatment Not on file documented as of this encounter Procedures Procedure Name Priority Date/Time Associated Diagnosis Comments CT ABDOMEN PELVIS W CONTRAST Routine 09/17/2013 4:04 PM CDT US PELVIS COMPLETE Routine 09/17/2013 1: 27 PM CDT US TRANSVAGINAL Routine 09/17/2013 1:27 PM CDT BLOOD HUMAN IMMUNODEFICIENCY VIRUS Routine 09/17/2013 10:52 AM CDT URINE (AEROBIC) CULTURE, CDR Routine 09/17/2013 10:50 AM CDT URINE MICROSCOPY Routine 09/17/2013 10:5 0 AM CDT URINALYSIS Routine 09/17/2013 10:50 AM CDT BLOOD LACTIC ACID Routine 09/17/2013 10: 41 AM CDT BLOOD CREATININE, POINT OF CARE Routine 09/17/2013 10:40 AM CDT SERUM LIPASE Routine 09/17/2013 10:35 AM CDT PLASMA HEPATIC FUNCTION PANEL Routine 09/17/2013 10:35 AM CDT PLASMA BASIC METABOLIC PANEL Routine 09/17/2013 10:35 AM CDT BLOOD CELL COUNT (CBC) Routine 3 10:35 AM CDT ALL MICROBIOLOGY REPORT SECTION Routine 09/17/2013 12:00 AM CDT DISCHARGE LABORATORY CUMULATIVE REPORT Routine 09/17/2013 12:00 AM CDT documented in this encounter Results * CT Abdomen Pelvis W Contrast (09/17/2013 4:04 PM CDT) Anatomical Region Laterality Modality Body N/A Computed Tomogra phy 09/17/2013 4:04 PM CDT Narrative 09/17/2013 5:15 PM CDT KARLI KELLEY M.D. FINAL REPORT ACC# ??Date Time ??Exam [id number] Sep 17, 2013 16:04:[id number] Abd & Pelvis with cont EXAMINATION: ?? CT OF THE ABDOMEN AND PELVIS WITH INTRAVENOUS CONTRAST HISTORY: 38-year-old female with history of endometriosis status post hysterectomy who now presents with abdominal pain TECHNIQUE: Transaxial computed tomographic images of the abdomen and pelvis were obtained following the administration of 95 ml Optiray 350 intravenous contrast according to standard protocol. No immediate complications following contrast administration. COMPARISON: None FINDINGS: Limited evaluation of the lung bases demonstrate no focal consolidation, pleural effusion, or pneumothorax. The heart is normal in size without pericardial effusion. The liver demonstrates normal proximal enhancement without focal hepatic lesion. Geographic area decreased attenuation near the falciform ligament is most consistent focal fatty infiltration. There is no intra or extrahepatic biliary ductal dilatation. The gallbladder is normal. The spleen, bilateral adrenal glands, pancreas, and kidneys appear normal. There is no abdominal or pelvic lymphadenopathy. No free intraperitoneal fluid or air is present. The small and large bowel are normal in caliber without obstruction or inflammation. Appendix is normal in caliber. There postoperative changes of hysterectomy. Bilateral adnexa appear normal. There is minimal free fluid in the cul-de-sac. The urinary bladder is normal. Evaluation of bone windows demonstrate no suspicious osteolytic or osteoblastic lesions. Multiple Schmorl's node present. 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 IMPRESSION: ? 1. ??No CT correlate for patient's abdominal pain. Requested By: ASHLEIGH ROSE M.D. Dictated By: ?? KARLI KELLEY M.D. ??on Sep?2012 ??5:15P This document has been electronically signed by: KARLI KELLEY M.D. on Sep?1 2012 ??5:15P Procedure Note Provider, MD Karla - 03/09/2017 KARLI KELLEY M.D. FINAL REPORT ACC# Date Time Exam [id number] Sep 17, 2013 16:04:[id number] Abd & Pelvis with cont EXAMINATION: CT OF THE ABDOMEN AND PELVIS WITH INTRAVENOUS CONTRAST HISTORY: 38-year-old female with history of endometriosis status post hysterectomy who now presents with abdominal pain TECHNIQUE: Transaxial computed tomographic images of the abdomen and pelvis were obtained following the administration of 95 ml Optiray 350 intravenous contrast according to standard protocol. No immediate complications following contrast administration. COMPARISON: None FINDINGS: Limited evaluation of the lung bases demonstrate no focal consolidation, pleural effusion, or pneumothorax. The heart is normal in size without pericardial effusion. The liver demonstrates normal proximal enhancement without focal hepatic lesion. Geographic area decreased attenuation near the falciform ligament is most consistent focal fatty infiltration. There is no intra or extrahepatic biliary ductal dilatation. The gallbladder is normal. The spleen, bilateral adrenal glands, pancreas, and kidneys appear normal. There is no abdominal or pelvic lymphadenopathy. No free intraperitoneal fluid or air is present. The small and large bowel are normal in caliber without obstruction or inflammation. Appendix is normal in caliber. There postoperative changes of hysterectomy. Bilateral adnexa appear normal. There is minimal free fluid in the cul-de-sac. The urinary bladder is normal. Evaluation of bone windows demonstrate no suspicious osteolytic or osteoblastic lesions. Multiple Schmorl's node present. 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 IMPRESSION: 1. No CT correlate for patient's abdominal pain. Requested By: ASHLEIGH ROSE M.D. Dictated By: KARLI KELLEY M.D. on Sep 17 2013 5:15P This document has been electronically signed by: KARLI KELLEY M.D. on Sep 17 2013 5:15P us Historical Provider MD BAILEY CT PROCEDURES Final R esult * US Pelvis Complete (09/17/2013 1:27 PM CDT) Anatomical Region Laterality Modality Pelvis N/A Ultrasound 09/17/2013 1:27 PM CDT Narrative 09/17/2013 4:09 PM CDT MARY CARMEN RODRIGUEZ M.D. LOVELY GARCIA M.D. FINAL REPORT The radiology attending physician has personally reviewed this study, and has reviewed and/or edited this written report and agrees with it. ACC# ??Date Time ??Exam [id number] Sep 17, 2013 13:27:00 [id number] Pelvic Sono [facility] [id number] Sep 17, 2013 13:27:00 [id number] Transvag Sono EXAMINATION: ?? TRANSABDOMINAL AND TRANSVAGINAL SONOGRAM HISTORY: ??38-year-old female with history of endometriosis status post hysterectomy, now with increased pelvic pain FINDINGS: TRANSABDOMINAL SONOGRAM: The uterus is surgically absent. No free fluid is seen in the pelvis. On transabdominal imaging both ovaries are present and appear grossly normal however imaging is limited secondary to overlying bowel gas. Transvaginal sonography was performed to further evaluate the ovaries. TRANSVAGINAL SONOGRAM: The right ovary measures 2.5 x 1.0 x 3.5 cm, and the left, 2.6 x 2.1 x 2.0 cm. There are scattered physiological follicles in both ovaries with no suspicious masses or lesions. Radha Reyes PA-C participated in the examination. ?? IMPRESSION: The uterus is surgically absent with normal sonographic appearance of both ovaries. These findings were discussed with Dr. Rose by Dr. Garcia at 1:45 p.m. on 09/17/2013 ?? Requested By: ASHLEIGH ROSE M.D. Dictated By: ?? LOVELY GARCIA M.D. ??on Sep?2012 ??1:48P This document has been electronically signed by: MARY CARMEN RODRIGUEZ M.D. on Sep 17 2013 ??4:09P Procedure Note Provider, MD Karla - 03/09/2017 Remy CARTER M.D. FINAL REPORT The radiology attending physician has personally reviewed this study, and has reviewed and/or edited this written report and agrees with it. ACC# Date Time Exam [id number] Sep 17, 2013 13:27:00 [id number] Pelvic Sono Cmp [id number] Sep 17, 2013 13:27:00 [id number] Transvag Sono EXAMINATION: TRANSABDOMINAL AND TRANSVAGINAL SONOGRAM HISTORY: 38-year-old female with history of endometriosis status post hysterectomy, now with increased pelvic pain FINDINGS: TRANSABDOMINAL SONOGRAM: The uterus is surgically absent. No free fluid is seen in the pelvis. On transabdominal imaging both ovaries are present and appear grossly normal however imaging is limited secondary to overlying bowel gas. Transvaginal sonography was performed to further evaluate the ovaries. TRANSVAGINAL SONOGRAM: The right ovary measures 2.5 x 1.0 x 3.5 cm, and the left, 2.6 x 2.1 x 2.0 cm. There are scattered physiological follicles in both ovaries with no suspicious masses or lesions. Radha Reyes PA-C participated in the examination. IMPRESSION: The uterus is surgically absent with normal sonographic appearance of both ovaries. These findings were discussed with Dr. Rose by Dr. Garcia at 1:45 p.m. on 09/17/2013 Requested By: ASHLEIGH ROSE M.D. Dictated By: LOVELY GARCIA M.D. on Sep 17 2013 1:48P This document has been electronically signed by: MARY CARMEN RODRIGUEZ M.D. on Sep 17 2013 4:09P us Historical Provider MD BAILEY US PROCEDURES Final R esult * US Transvaginal (09/17/2013 1:27 PM CDT) Anatomical Region Laterality Modality Pelvis N/A Ultrasound 09/17/2013 1:27 PM CDT Narrative 09/17/2013 4:09 PM CDT Remy CARTER M.D. FINAL REPORT The radiology attending physician has personally reviewed this study, and has reviewed and/or edited this written report and agrees with it. ACC# ??Date Time ??Exam [id number] Sep 17, 2013 13:27:00 [id number] Pelvic Sono [facility] [id number] Sep 17, 2013 13:27:00 [id number] Transvag Sono EXAMINATION: ?? TRANSABDOMINAL AND TRANSVAGINAL SONOGRAM HISTORY: ??38-year-old female with history of endometriosis status post hysterectomy, now with increased pelvic pain FINDINGS: TRANSABDOMINAL SONOGRAM: The uterus is surgically absent. No free fluid is seen in the pelvis. On transabdominal imaging both ovaries are present and appear grossly normal however imaging is limited secondary to overlying bowel gas. Transvaginal sonography was performed to further evaluate the ovaries. TRANSVAGINAL SONOGRAM: The right ovary measures 2.5 x 1.0 x 3.5 cm, and the left, 2.6 x 2.1 x 2.0 cm. There are scattered physiological follicles in both ovaries with no suspicious masses or lesions. Radha Reyes PA-C participated in the examination. ?? IMPRESSION: The uterus is surgically absent with normal sonographic appearance of both ovaries. These findings were discussed with Dr. Rose by Dr. Garcia at 1:45 p.m. on 09/17/2013 ?? Requested By: ASHLEIGH ROSE M.D. Dictated By: ?? LOVELY GARCIA M.D. ??on Sep?2012 ??1:48P This document has been electronically signed by: MARY CARMEN RODRIGUEZ M.D. on Sep 17 2013 ??4:09P Procedure Note Provider, MD Karla - 03/09/2017 MARY CARMEN RODRIGUEZ M.D. LOVELY GARCIA M.D. FINAL REPORT The radiology attending physician has personally reviewed this study, and has reviewed and/or edited this written report and agrees with it. ACC# Date Time Exam [id number] Sep 17, 2013 13:27:00 [id number] Pelvic Sono Cmp [id number] Sep 17, 2013 13:27:00 [id number] Transvag Sono EXAMINATION: TRANSABDOMINAL AND TRANSVAGINAL SONOGRAM HISTORY: 38-year-old female with history of endometriosis status post hysterectomy, now with increased pelvic pain FINDINGS: TRANSABDOMINAL SONOGRAM: The uterus is surgically absent. No free fluid is seen in the pelvis. On transabdominal imaging both ovaries are present and appear grossly normal however imaging is limited secondary to overlying bowel gas. Transvaginal sonography was performed to further evaluate the ovaries. TRANSVAGINAL SONOGRAM: The right ovary measures 2.5 x 1.0 x 3.5 cm, and the left, 2.6 x 2.1 x 2.0 cm. There are scattered physiological follicles in both ovaries with no suspicious masses or lesions. Radha Reyes PA-C participated in the examination. IMPRESSION: The uterus is surgically absent with normal sonographic appearance of both ovaries. These findings were discussed with Dr. Rose by Dr. Garcia at 1:45 p.m. on 09/17/2013 Requested By: ASHLEIGH ROSE M.D. Dictated By: LOVELY GARCIA M.D. on Sep 17 2013 1:48P This document has been electronically signed by: MARY CARMEN RODRIGUEZ M.D. on Sep 17 2013 4:09P us Historical Provider [place] US PROCEDURES Final R esult * Blood Human Immunodeficiency virus [HIV] rapid screen (09/17/2013 10:52 AM CDT) HIV ab Negative HISTORICAL RESULTS Blood specimen (specimen) 09/17/2013 10:52 AM CDT Ovi Bo MD LAB BLOOD ORDERABLES Final Res ult Performing Organization Address [facility] de Phone Number HISTORICAL RESULTS * Urine (aerobic) culture (09/17/2013 10:50 AM CDT) Urine (Unknown) 09/17/2013 1 0:50 AM CDT 09/17/2013 12:04 PM CDT Narrative HISTORICAL RESULTS - 09/18/2013 1:13 PM CDT Insignificant growth based on current clinical standards. Historical Provider LAB MICROBIOLOGY - GENERA L ORDERABLES Final Result Performing Organization Address [facility] de Phone Number HISTORICAL RESULTS * (ABNORMAL) Urinalysis (09/17/2013 10:50 AM CDT) Color, ur Yellow Yellow HISTORICAL RESULTS Clarity, ur Clear Clear HISTORIC AL RESULTS Specific gravity, ur 1.015 1.003 - 1.030 HISTORICAL RESULTS pH, ur 6.0 5.0 - 8.0 HISTORICAL RESULTS Protein, ur Negative Trace HISTORIC AL RESULTS Glucose, ur Negative Negative HISTORIC AL RESULTS Ketones, ur 1+(A) Negative HISTORIC AL RESULTS Bilirubin, ur Negative Negative HISTOR ICAL RESULTS U Blood 1+(A) Negative HISTORICAL RESULTS Urobilinogen, quant, ur <2.0 0.0 - 2.0 mg/dl HISTORICAL RESULTS Nitrites, ur Negative Negative HISTORI BEKA RESULTS Leukocyte esterase, ur Negative Negative HISTORICAL RESULTS Urine 09/17/2013 10:5 0 AM CDT Ashleigh Rose MD LAB BLOOD ORDERABLES Rissa l Result Performing Organization Address [facility] Co de Phone Number HISTORICAL RESULTS * Urine microscopy (09/17/2013 10:50 AM CDT) RBC, ur 3 0 - 3 /hpf HISTORICA L RESULTS WBC, ur 0 0 - 5 /hpf HISTORICA L RESULTS Bacteria, ur Trace Trace HISTORI BEKA RESULTS Epithelial cells, renal, ur 0 0 - 0 /hpf HISTORICAL RESULTS Epithelial cells, squamous, ur >20 /lpf HISTORICAL RESULTS Mucus, ur Small /hpf HISTORICAL RESULTS Urine 09/17/2013 10:5 0 AM CDT Ashleigh Rose MD LAB BLOOD ORDERABLES Rissa mcleod Result Performing Organization Address [facility] de Phone Number HISTORICAL RESULTS * Blood lactic acid (09/17/2013 10:41 AM CDT) Lactic acid 1.4 0.7 - 2.1 mmol/L HISTORICAL RESULTS Blood specimen (specimen) 09/17/2013 10:41 AM CDT Historical Provider LAB BLOOD ORDERABLES Rissa mcleod Result Performing Organization Address [facility] Phone Number HISTORICAL RESULTS * Blood creatinine, point of care (09/17/2013 10:40 AM CDT) Creatinine, POC, bld 0.6 0.6 - 1.1 mg/dl HISTORICAL RESULTS Blood specimen (specimen) 09/17/2013 10:40 AM CDT Historical Provider LAB BLOOD ORDERABLES Rissa mcleod Result Performing Organization Address [facility] de Phone Number HISTORICAL RESULTS * Plasma hepatic function panel (09/17/2013 10:35 AM CDT) Protein, pl 7.4 6.5 - 8.5 g/dl HISTORICAL RESULTS Alb 4.3 3.6 - 5.0 g/dl HISTORICAL RESULTS Bilirubin 0.3 0.3 - 1.1 mg/dl HISTORICAL RESULTS Bilirubin, direct 0.1 0.0 - 0.3 mg/dl HISTORICAL RESULTS Alk phos 57 38 - 126 Units/L HISTORICAL RESULTS AST 21 11 - 47 Units/L HISTORICAL RESULTS ALT 14 7 - 53 Units/L HISTORICAL RESULTS Plasma 09/17/2013 10:3 5 AM CDT Ashleigh Rose MD LAB BLOOD ORDERABLES Rissa mcleod Result Performing Organization Address [facility] Co de Phone Number HISTORICAL RESULTS * (ABNORMAL) Plasma basic metabolic panel (09/17/2013 10:35 AM CDT) Pathologist [facility] Sodium 140 135 - 145 mmol/L HISTORICAL RESULTS K, pl 4.0 3.3 - 4.9 mmol/L HISTORICAL RESULTS Chloride 107 97 - 110 mmol/L HISTORICAL RESULTS CO2 20(L) 22 - 32 mmol/L HISTORICAL RESULTS A. gap 13 0 - 16 mmol/L HISTORICAL RESULTS Glucose 84 70 - 199 mg/dl HISTORICAL RESULTS BUN 9 8 - 25 mg/dl HISTORICAL RESULTS Creatinine 0.55(L) 0.60 - 1.10 mg/dl HISTORICAL RESULTS Calcium 9.4 8.6 - 10.3 mg/dl HISTORICAL RESULTS Plasma 09/17/2013 10:3 5 AM CDT Ashleigh Rose MD LAB BLOOD ORDERABLES Rissa l Result HISTORICAL RESULTS * Serum lipase (09/17/2013 10:35 AM CDT) Pathologist [facility] Lip 74 0 - 99 Units/L HISTORICAL RESULTS Serum 09/17/2013 10:3 5 AM CDT Ashleigh Rose MD LAB BLOOD ORDERABLES Rissa l Result HISTORICAL RESULTS * (ABNORMAL) Blood cell count (CBC) (09/17/2013 10:35 AM CDT) Pathologist [facility] WBC 20.9(H) 3.8 - 9.8 K/cumm HISTORICAL RESULTS RBC 4.73 3.90 - 5.00 M/cumm HISTORICAL RESULTS Hgb 14.4 12.1 - 15.1 g/dl HISTORICAL RESULTS Hct 42.2 36.1 - 44.3 % HISTORICAL RESULTS MCV 89.2 80.0 - 97.6 fl HISTORICAL RESULTS MCH 30.4 26.7 - 33.7 pg HISTORICAL RESULTS MCHC 34.1 32.7 - 35.5 g/dl HISTORICAL RESULTS Rdw 12.6 11.8 - 14.6 % HISTORICAL RESULTS Platelets 309 140 - 440 K/cumm HISTORICAL RESULTS MPV 7.7 6.8 - 10.4 fl HISTORICAL RESULTS Neutrophils 89.0(H) 38.7 - 74.5 % HISTORICAL RESULTS Lymphocytes 6.1(L) 20.0 - 54.3 % HISTORICAL RESULTS Monos 3.6(L) 4.3 - 13.5 % HISTORICAL RESULTS Eosinophils 1.2 0.0 - 6.0 % HISTORICAL RESULTS Basophils 0.1 0.0 - 3.0 % HISTORICAL RESULTS Neutrophils, abs 18.6(H) 1.8 - 6.6 K/cumm HISTORICAL RESULTS Lymphocytes, abs 1.3 1.2 - 3.3 K/cumm HISTORICAL RESULTS Monocytes, absolute 0.8 0.2 - 1.2 K/cumm HISTORICAL RESULTS Eosinophils, abs 0.2 0.0 - 0.5 K/cumm HISTORICAL RESULTS Basophils, abs 0.0 0.0 - 0.2 K/cumm HISTORICAL RESULTS Blood specimen (specimen) 09/17/2013 10:35 AM CDT Ashleigh Rose MD LAB BLOOD ORDERABLES Rissa mcleod Result HISTORICAL RESULTS * Discharge Laboratory Cumulative Report (09/17/2013 12:00 AM CDT) 09/17/2013 Narrative HISTORICAL RESULTS - 09/18/2013 3:19 PM CDT ?[facility] ?Department of Laboratories ? [facility] [address] ? [place] [address] Patient Name: ??SHAWN FLORES [facility] Rec Number: [id number] Fin Number: ?[id number] Date: ?1975 Sex/Age: ? Female 38 years Admit Date: ?09/17/2013 Discharge Date: 09/17/2013 Doctor: ?Ovi Bo Facility: ?[facility] Location: ?EM-9 Chart Printed: 09/18/2013 15:19 ?? * Abnormal ?? C Critical ?? f Footnote ?? ^ Corrected ?? L Low ?? H High ? i Interp Data ?? @ Reference Lab ?Chart Type:Cumulative ? SELECTED ELECTROLYTES ?Test: Sodium ? Plasma Potassium ??Chloride ? Reference: [135-145] ??[3.3-4.9] ? [97-110] ? Units: mmol/L ? mmol/L ?mmol/L 09/17/2013 ?? 10:35:00 ?? 140 ?4.0 ? 107 ?Test: Total CO2 ??Anion Gap ? Reference: [22-32] ?[0-16] ? Units: mmol/L ? mmol/L 09/17/2013 ?? 10:35:00 ?? 20 ??L ?13 ? STANDARD BLOOD CHEMISTRY ?Test: BUN ? Creatinine ?? Total Bilirubin ? Reference: [8-25] ??[0.60-1.10] ??[0.3-1.1] ? Units: mg/dL ?? mg/dL ?mg/dL 09/17/2013 ?? 10:35:00 ?? 9 ? 0.55 ??L ?0.3 ?Test: Bilirubin, Direct ??Glucose ?? Total Calcium ? Reference: [0.0-0.3] ?[70-199] ??[8.6-10.3] ? Units: mg/dL ?mg/dL ? mg/dL 09/17/2013 ?? 10:35:00 ?? 0.1 ?84 ?9.4 ?Test: Plasma Total Protein ??Albumin ? Reference: [6.5-8.5] ? [3.6-5.0] ? Units: g/dL ?g/dL 09/17/2013 ?? 10:35:00 ?? 7.4 ? 4.3 ?ENZYMES ?Test: Alkaline Phosphatase ??ALT ?AST ? Reference: [38-126] ?[7-53] ?? [11-47] ? Units: Units/L ? Units/L ??Units/L 09/17/2013 ?? 10:35:00 ?? 57 ?14 ? 21 ?Test: Lipase ? Reference: [0-99] ? Units: Units/L 09/17/2013 ?? 10:35:00 ?? 74 ?URINALYSIS ?Macroscopic ?Test: Color ? Clarity ??Specific [place] ??pH ? Reference: [Yellow] ??[Clear] ??[1.003-1.030] ? [5.0-8.0] ? Units: 09/17/2013 ?? 10:50:05 ?? Yellow ?Clear ?1.015 ? 6.0 ?Test: Albumin ?? Glucose ? Ketones ? Bilirubin ? Reference: [Trace] ?? [Negative] ??[Negative] ??[Negative] ? Units: 09/17/2013 ?? 10:50:05 ?? Negative ??Negative ?1+ ??* ? Negative ?Test: Blood ? Urobilinogen ??Nitrite ? Reference: [Negative] ??[0.0-2.0] ? [Negative] ? Units: ? mg/dL 09/17/2013 ?? 10:50:05 ?? 1+ ??* ? <2.0 ?Negative ?Test: Leuk Esterase ? Reference: [Negative] ? Units: 09/17/2013 ?? 10:50:05 ?? Negative ?Microscopic ?Test: Epithl Squam ??Mucus Thrds ??RBC Ur ??WBC Ur ? Reference: ?[0-3] ?? [0-5] ? Units: /LPF ?/HPF ? /HPF ?/HPF 09/17/2013 ?? 10:50:05 ?? >20 ? Small ?3 ? 0 ?Test: Bacteria Ur ??Epithl Renl Ur ? Reference: [Trace] ?[0-0] ? Units: ?/HPF 09/17/2013 ?? 10:50:05 ?? Trace ?0 ? COMPLETE BLOOD COUNT ?Test: WBC ?RBC ?Hgb ? Reference: [3.8-9.8] ??[3.90-5.00] ??[12.1-15.1] ? Units: K/cumm ? M/cumm ? g/dL 09/17/2013 ?? 10:35:27 ?? 20.9 ??H ?4.73 ? 14.4 ?Test: Hct ?Platelet Ct ??MCV ? Reference: [36.1-44.3] ??[140-440] ?[80.0-97.6] ? Units: % ?K/cumm ? fL 09/17/2013 ?? 10:35:27 ?? 42.2 ? 309 ?89.2 ?Test: MCH ?MCHC ? RDW ? Reference: [26.7-33.7] ??[32.7-35.5] ??[11.8-14.6] ? Units: pg ? g/dL ? % 09/17/2013 ?? 10:35:27 ?? 30.4 ? 34.1 ? 12.6 ?Test: MPV ? Reference: [6.8-10.4] ? Units: fL 09/17/2013 ?? 10:35:27 ?? 7.7 ? AUTOMATED WHITE CELL DIFFERENTIAL ?Test: Neut Pct Auto ??Lymph Pct Auto ??Moore Pct Auto ? Reference: [38.7-74.5] ?[20.0-54.3] ? [4.3-13.5] ? Units: % ?% ? % 09/17/2013 ?? 10:35:27 ?? 89.0 ??H ?6.1 ??L ?3.6 ??L ?Test: Eos Pct Auto ??Baso Pct Auto ??Neut Abs Auto ? Reference: [0.0-6.0] ? [0.0-3.0] ?[1.8-6.6] ? Units: % ? % ?K/cumm 09/17/2013 ?? 10:35:27 ?? 1.2 ? 0.1 ?18.6 ??H ?Test: Lymph Abs Auto ??Moore Abs Auto ??Eos Abs Auto ? Reference: [1.2-3.3] ? [0.2-1.2] ?[0.0-0.5] ? Units: K/cumm ?K/cumm ? K/cumm 09/17/2013 ?? 10:35:27 ?? 1.3 ? 0.8 ?0.2 ?Test: Baso Abs Auto ? Reference: [0.0-0.2] ? Units: K/cumm 09/17/2013 ?? 10:35:27 ?? 0.0 ?POINT OF CARE TESTS ? Chemistry ?Test: Creat iPOC ??Lactate iPOC ? Reference: [0.6-1.1] ?? [0.7-2.1] ? Units: mg/dL ? mmol/L 09/17/2013 ?? 10:41:00 ? 1.4 09/17/2013 ?? 10:40:00 ?? 0.6 ? Serology ?Test: RapHIV 1/2 POC ? Reference: ? Units: 09/17/2013 ?? 10:52:00 ?? Negative ? MICROBIOLOGY - ALL TESTS ? PROCEDURE: Urine Culture ?SOURCE: Urine COLLECTED: 09/17/13 ??1050 ? BODY SITE: STARTED: 09/17/13 ??1205 FREE TEXT SOURCE: FINAL REPORT REPORTED: 09/18/13 1313 Insignificant growth based on current clinical standards. ? MICROBIOLOGY - URINE ? PROCEDURE: Urine Culture ?SOURCE: Urine COLLECTED: 09/17/13 ??1050 ? BODY SITE: STARTED: 09/17/13 ??1205 FREE TEXT SOURCE: FINAL REPORT REPORTED: 09/18/13 1313 Insignificant growth based on current clinical standards. ? CANCELLED TESTS Date ?Time ?Test ?Cancel Reason 09/17/2013 ??10:43:00 ??Basic Met Plas ??NCHG Canceled by ED 09/17/2013 ??10:43:00 ??Lipase ?NCHG Canceled by ED us Historical Provider LAB BLOOD ORDERABLES Rissa l Result HISTORICAL RESULTS * All Microbiology Report Section (09/17/2013 12:00 AM CDT) 09/17/2013 Narrative HISTORICAL RESULTS - 09/18/2013 3:32 PM CDT ? [facility] ?[facility] [address] ?[place] [address] ? Patient Name: ??SHAWN FLORES ? Med Rec Number: [id number] ? Fin Number: ?[id number] ? Date: ?1975 ? Sex/Age: ? Female 38 years ? Admit Date: ?09/17/2013 ? Discharge Date: 09/17/2013 ? Doctor: ?Ruoff , Ovi E ? Facility: ?[facility] ? Location: ?EM-9 ?* Abnormal ??A Alert ??f Footnote ??^ Corrected ??L Low ??H High ?i Interp Data ??@ Ref Lab ? Chart Type:Cumulative ?* * * * MICROBIOLOGY - URINE * * * * ?PROCEDURE: Urine Culture ? SOURCE: Urine ? COLLECTED: //13 ??1050 ?BODY SITE: ? STARTED: 11//13 ??1205 ? FREE TEXT SOURCE: ? FINAL REPORT ? REPORTED: 09/18/13 1313 ? Insignificant growth based on current clinical standards. us Historical Provider LAB MICROBIOLOGY - GENERA L ORDERABLES Final Result Performing Organization Address City/State/[facility] Co de Phone Number HISTORICAL RESULTS documented in this encounter Visit Diagnoses Diagnosis Abdominal pain Abdominal pain, unspecified site Asthma Unspecified asthma Tubal ligation status Acquired absence of genital organ Acquired absence of organ, genital organs Encounter for long-term (current) use of other medications documented in this encounter
--- OUTSIDE RECORDS SUMMARY | 2024-11-13 02:18 | XMS_ITS | Encounter Summary ---
Author Organization [facility] Facility Care Team Providers Care Deputy Sheriff K9 Handler Name Role Phone Unavailable Primary Care Provider Unavailabl e Encounter Details Date Type Department Care Team (Late st Contact Info) Description 10/24/2013 1:01 PM NATURAL RESOURCE OFFICER - 10/24/2013 3:52 PM NATURAL RESOURCE OFFICER Hospital [facility] MD [address] [facility] [address] [place] [address] Abdominal pain; Asthma; Tubal ligation status; Acquired absence of genital organ; Encounter for long-term (current) use of other medications Social History Tobacco Use Types Packs/Day Years Used Date Smoking Tobacco: Never Assessed Comments Unknown Sex and Gender Information Value Date Recorded Sex Assigned at Not on file Legal Sex Female 6:03 PM NATURAL RESOURCE OFFICER Gender Identity Not on file Sexual Orientation Not on file documented as of this encounter Plan of Treatment Not on file documented as of this encounter Procedures Procedure Name Priority Date/Time Associated Diagnosis Comments BLOOD CELL COUNT (CBC) Routine 10/24/2013 2:18 PM NATURAL RESOURCE OFFICER PLASMA BASIC METABOLIC PANEL Routine 10/24/2013 2:10 PM NATURAL RESOURCE OFFICER DISCHARGE LABORATORY CUMULATIVE REPORT Routine 10/24/2013 12:00 AM NATURAL RESOURCE OFFICER documented in this encounter Results * (ABNORMAL) Blood cell count (CBC) (10/24/2013 2:18 PM NATURAL RESOURCE OFFICER) WBC 7.3 3.8 - 9.8 K/cumm HISTORICAL RESULTS RBC 5.28(H) 3.90 - 5.00 M/cumm HISTORICAL RESULTS Hgb 15.9(H) 12.1 - 15.1 g/dl HISTORICAL RESULTS Hct 46.0(H) 36.1 - 44.3 % HISTORICAL RESULTS MCV 87.3 80.0 - 97.6 fl HISTORICAL RESULTS MCH 30.3 26.7 - 33.7 pg HISTORICAL RESULTS MCHC 34.7 32.7 - 35.5 g/dl HISTORICAL RESULTS Rdw 12.6 11.8 - 14.6 % HISTORICAL RESULTS Platelets 299 140 - 440 K/cumm HISTORICAL RESULTS MPV 8.0 6.8 - 10.4 fl HISTORICAL RESULTS Neutrophils 67.9 38.7 - 74.5 % HISTORICAL RESULTS Lymphocytes 25.5 20.0 - 54.3 % HISTORICAL RESULTS Monos 5.6 4.3 - 13.5 % HISTORICAL RESULTS Eosinophils 0.7 0.0 - 6.0 % HISTORICAL RESULTS Basophils 0.3 0.0 - 3.0 % HISTORICAL RESULTS Neutrophils, abs 4.9 1.8 - 6.6 K/cumm HISTORICAL RESULTS Lymphocytes, abs 1.9 1.2 - 3.3 K/cumm HISTORICAL RESULTS Monocytes, absolute 0.4 0.2 - 1.2 K/cumm HISTORICAL RESULTS Eosinophils, abs 0.0 0.0 - 0.5 K/cumm HISTORICAL RESULTS Basophils, abs 0.0 0.0 - 0.2 K/cumm HISTORICAL RESULTS Blood specimen (specimen) 10/24/2013 2:18 PM NATURAL RESOURCE OFFICER Mg Ferreira MD LAB BLOOD ORDERABLES Final Result HISTORICAL RESULTS * (ABNORMAL) Plasma basic metabolic panel (10/24/2013 2:10 PM NATURAL RESOURCE OFFICER) Sodium 137 135 - 145 mmol/L HISTORICAL RESULTS K, pl 3.7 3.3 - 4.9 mmol/L HISTORICAL RESULTS Chloride 103 97 - 110 mmol/L HISTORICAL RESULTS CO2 19(L) 22 - 32 mmol/L HISTORICAL RESULTS A. gap 15 0 - 16 mmol/L HISTORICAL RESULTS Glucose 92 70 - 199 mg/dl HISTORICAL RESULTS BUN 15 8 - 25 mg/dl HISTORICAL RESULTS Creatinine 0.62 0.60 - 1.10 mg/dl HISTORICAL RESULTS Calcium 9.8 8.6 - 10.3 mg/dl HISTORICAL RESULTS Plasma 10/24/2013 2:10 PM NATURAL RESOURCE OFFICER us Mg Ferreira MD LAB BLOOD ORDERABLES Final Result HISTORICAL RESULTS * Discharge Laboratory Cumulative Report (10/24/2013 12:00 AM NATURAL RESOURCE OFFICER) 10/24/2013 Narrative HISTORICAL RESULTS - 10/24/2013 7:16 PM NATURAL RESOURCE OFFICER ?[facility] ?Department of Laboratories ? [address] [facility] [address] ? [place] [address] Patient Name: ??MARK SHAWN [facility] Rec Number: [id number] Fin Number: [id number] Date: ?1975 Sex/Age: ? Female 38 years Admit Date: ?10/24/2013 Discharge Date: 10/24/2013 Doctor: ?Mg Ferreira Facility: ?[facility] Location: ?EM3-3 Chart Printed: 10/24/2013 19:16 ?? * Abnormal ?? C Critical ?? f Footnote ?? ^ Corrected ?? L Low ?? H High ? i Interp Data ?? @ Reference Lab ?Chart Type:Cumulative ? SELECTED ELECTROLYTES ?Test: Sodium ? Plasma Potassium ??Chloride ? Reference: [135-145] ??[3.3-4.9] ? [97-110] ? Units: mmol/L ? mmol/L ?mmol/L 10/24/2013 ?? 14:18:07 ?? 137 ?3.7 ? 103 ?Test: Total CO2 ??Anion Gap ? Reference: [22-32] ?[0-16] ? Units: mmol/L ? mmol/L 10/24/2013 ?? 14:18:07 ?? 19 ??L ?15 ? STANDARD BLOOD CHEMISTRY ?Test: BUN ? Creatinine ?? Glucose ?? Total Calcium ? Reference: [8-25] ??[0.60-1.10] ??[70-199] ??[8.6-10.3] ? Units: mg/dL ?? mg/dL ?mg/dL ? mg/dL 10/24/2013 ?? 14:18:07 ?? 15 ?0.62 ? 92 ?9.8 ? COMPLETE BLOOD COUNT ?Test: WBC ?RBC ?Hgb ? Reference: [3.8-9.8] ??[3.90-5.00] ??[12.1-15.1] ? Units: K/cumm ? M/cumm ? g/dL 10/24/2013 ?? 14:18:07 ?? 7.3 ?5.28 ??H ?15.9 ??H ?Test: Hct ?Platelet Ct ??MCV ? Reference: [36.1-44.3] ??[140-440] ?[80.0-97.6] ? Units: % ?K/cumm ? fL 10/24/2013 ?? 14:18:07 ?? 46.0 ??H ?299 ?87.3 ? COMPLETE BLOOD COUNT ?Test: MCH ?MCHC ? RDW ? Reference: [26.7-33.7] ??[32.7-35.5] ??[11.8-14.6] ? Units: pg ? g/dL ? % 10/24/2013 ?? 14:18:07 ?? 30.3 ? 34.7 ? 12.6 ?Test: MPV ? Reference: [6.8-10.4] ? Units: fL 10/24/2013 ?? 14:18:07 ?? 8.0 ? AUTOMATED WHITE CELL DIFFERENTIAL ?Test: Neut Pct Auto ??Lymph Pct Auto ??Woods Pct Auto ? Reference: [38.7-74.5] ?[20.0-54.3] ? [4.3-13.5] ? Units: % ?% ? % 10/24/2013 ?? 14:18:07 ?? 67.9 ? 25.5 ?5.6 ?Test: Eos Pct Auto ??Baso Pct Auto ??Neut Abs Auto ? Reference: [0.0-6.0] ? [0.0-3.0] ?[1.8-6.6] ? Units: % ? % ?K/cumm 10/24/2013 ?? 14:18:07 ?? 0.7 ? 0.3 ?4.9 ?Test: Lymph Abs Auto ??Woods Abs Auto ??Eos Abs Auto ? Reference: [1.2-3.3] ? [0.2-1.2] ?[0.0-0.5] ? Units: K/cumm ?K/cumm ? K/cumm 10/24/2013 ?? 14:18:07 ?? 1.9 ? 0.4 ?0.0 ?Test: Baso Abs Auto ? Reference: [0.0-0.2] ? Units: K/cumm 10/24/2013 ?? 14:18:07 ?? 0.0 us Historical Provider LAB BLOOD ORDERABLES Rissa l Result HISTORICAL RESULTS documented in this encounter Visit Diagnoses Diagnosis Abdominal pain Abdominal pain, unspecified site Asthma Unspecified asthma Tubal ligation status Acquired absence of genital organ Acquired absence of organ, genital organs Encounter for long-term (current) use of other medications documented in this encounter
--- OUTSIDE RECORDS SUMMARY | 2024-11-13 02:18 | XMS_ITS | Encounter Summary ---
Author Organization [facility] Healthcare Address [address] [place] [address] Care Team Providers Care Catheter Builder Name Role Phone Unavailable Primary Care Provider Unavailabl e Encounter Details Date Type Department Care Team (Late st Contact Info) Description 11/10/2011 4:40 PM WRISTER - 11/10/2011 7:45 PM WRISTER Hospital Encounter [facility] Jalen Gutierrez Abdominal pain; Vomiting alone; Urinary tract infection Social History Tobacco Use Types Packs/Day Years Used Date Smoking Tobacco: Never Assessed Comments Unknown Sex and Gender Information Value Date Recorded Sex Assigned at Not on file Legal Sex Female 6:03 PM WRISTER Gender Identity Not on file Sexual Orientation Not on file documented as of this encounter Plan of Treatment Not on file documented as of this encounter Visit Diagnoses Diagnosis Abdominal pain Abdominal pain, unspecified site Vomiting alone Urinary tract infection Urinary tract infection, site not specified documented in this encounter
--- OUTSIDE RECORDS SUMMARY | 2024-11-13 02:18 | XMS_ITS | Encounter Summary ---
Author Organization [facility] Address [address] [place] [address] Care Team Providers Care Home Lending Officer Name Role Phone Jemima Go MD Primary Care Provider [phone] Encounter Details Date Type Department Care Team (Latest Contact Info) Description 03/02/2018 5:38 PM CDT - 03/02/2018 11:59 PM CDT Hospital Encounter [facility] Discharge Disposition: Discharge to home or self care Social History Tobacco Use Types Packs/Day Years Used Date Smoking Tobacco: Never Smokeless Tobacco: Never Alcohol Use Standard Drinks/Week Comments No 0 (1 standard drink = 0.6 oz pur e alcohol) Comments No Sex and Gender Information Value Date Recorded Sex Assigned at Not on file Legal Sex Female 6:03 PM ROLL INSPECTOR Gender Identity Not on file Sexual Orientation Not on file documented as of this encounter Medications at Time of Discharge albuterol HFA (Ventolin HFA) 90 mcg/actuation inhaler 12/18/2017 2 ondansetron ODT (ZOFRAN-ODT) 4 mg disintegrating tablet [...] on filedocumented in this encounter Care Teams Home Lending Officer Relationship Specialty Start Date End Date Jemima Go MD [address] [place] [address] PCP - General 03/02/18 11/05/21 documented as of this encounter
--- OUTSIDE RECORDS SUMMARY | 2024-11-13 02:18 | XMS_ITS | Encounter Summary ---
Author Organization [facility] Healthcare Address [address] [place] [address] Care Team Providers Care K 9 Police Officer Name Role Phone Unavailable Primary Care Provider Unavailabl e Encounter Details Date Type Department Care Team (Late st Contact Info) Description 12/17/2006 4:08 PM CYBER SECURITY ENGINEER - 12/17/2006 7:05 PM CYBER SECURITY ENGINEER Hospital Encounter [facility] Rajnikant K., MD [address] [place] [address] Social History Tobacco Use Types Packs/Day Years Used Date Smoking Tobacco: Never Assessed Comments Unknown Sex and Gender Information Value Date Recorded Sex Assigned at Not on file Legal Sex Female 6:03 PM CYBER SECURITY ENGINEER Gender Identity Not on file Sexual Orientation Not on file documented as of this encounter Plan of Treatment Not on file documented as of this encounter Visit Diagnoses Not on filedocumented in this encounter
--- OUTSIDE RECORDS SUMMARY | 2024-11-13 02:18 | XMS_ITS | Encounter Summary ---
Author Organization [facility] Healthcare Address [address] [place] [address] Care Team Providers Care Hand Icer Name Role Phone Jemima Go MD Primary Care Provider [phone]- [phone] Reason for Visit * Reason Comments Urinary Problem Encounter Details Date Type Department Care Team (Late st Contact Info) Description 03/02/2018 6:03 PM CDT - 03/02/2018 9:15 PM CDT Emergency [facility] Emergency Department [address] [place] [id number] Ashleigh Rose MD [address] [place] [address] Acute midline low back pain without sciatica (Primary Dx); Dehydration; Nausea Discharge Disposition: Discharge to home or self care Social History Tobacco Use Types Packs/Day Years Used Date Smoking Tobacco: Never Smokeless Tobacco: Never Alcohol Use Standard Drinks/Week Comments No 0 (1 standard drink = 0.6 oz pur e alcohol) Comments No Sex and Gender Information Value Date Recorded Sex Assigned at Not on file 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 Gender Identity Not on file Sexual Orientation Not on file documented as of this encounter Last Filed Vital Signs Vital Sign Reading Time Taken Comments Blood Pressure 118/75 03/02/2018 9:00 PM CDT Pulse 79 03/02/2018 9:00 PM CDT Temperature 36.7 ??C (98 ??F) 03/02/2018 6:01 PM CDT Respiratory Rate 18 03/02/2018 9:00 PM CDT Oxygen Saturation 97% 03/02/2018 9:00 PM CDT Inhaled Oxygen Concentration - - Weight - - Height - - Body Mass Index - - documented in this encounter Discharge Instructions * Discharge Instructions* Ashleigh Rose MD - 03/02/2018 8:54 PM CDT YOUR URINE DID NOT SHOW ANY INFECTION. YOUR LABS WERE ALSO ALL UNREMARKABLE THE X-RAY OF YOUR LOWER BACK DOES SHOW AN OLD L3 COMPRESSION FRACTURE, AN EXACERBATION OF THIS MAY BE THE CAUSE OF YOUR DISCOMFORT. TAKE MOTRIN NEEDED FOR PAIN. CALL YOUR PRIMARY CARE DOCTOR TO BE SEEN AT FIRST AVAILABLE APPOINTMENT THIS WEEK. * Attachments The following attachments cannot be sent through Care Everywhere. * Acute Nausea and Vomiting (AfterCare(R) Instructions(ER/ED)) ([place] Citizen) documented in this encounter Medications at Time of Discharge albuterol HFA (Ventolin HFA) 90 mcg/actuation inhaler 12/18/2017 2 ondansetron ODT (ZOFRAN-ODT) 4 mg disintegrating tablet Dissolve 1 tablet oral every 4 hours as needed for nausea or vomiting. 20 tablet 03/02/2018 3 documented as of this encounter Ordered Prescriptions Prescription Sig Dispense Quantity Refills Last Filled Start Date End Date ondansetron ODT (ZOFRAN-ODT) 4 mg disintegrating tablet Dissolve 1 tablet oral every 4 hours as needed for nausea or vomiting. 20 tablet 03/02/2018 3 documented in this encounter Discharge Disposition Disposition Code Departure Means Destination Discharge to home or self care documented in this encounter ED Notes * Ashleigh Rose MD - 03/02/2018 7:14 PM CDT HPI Chief Complaint Patient presents with ??? Urinary Problem HPI 6:24 PM 03/02/2018 43 year old female with a reported history of frequent UTI and anxiety presents to ED via EMS c/o bilateral ankle swelling onset 2 days ago. Patient reports a similar episode about 1 month ago that resolved on its own. No history of HTN. Patient also reports decreased urine output and aching lower back pain over the past 3-4 days. No urinary urgency, frequency, or dysuria. Patient attributes her symptoms to UTI and states she does not typically present with dysuria or frequency during prior UTI episodes. Her current symptoms are more severe than prior UTI's. Patient admits to nausea and vomiting bile . Patient had 3 episodes of vomiting yesterday and 1 episode today. Last regular BM was a few days ago. Patient was able to pass small amounts of stool this morning. She admits to subjective fever and chills. LMP: None, s/p hysterectomy in 2000. Patient History There are no active problems to display for this patient. Past Medical History: Diagnosis Date ??? Asthma Past Surgical History: Procedure Laterality Date ??? KNEE DEBRIDEMENT ??? TUBAL LIGATION History reviewed. No pertinent family history. Social History Substance Use Topics ??? Smoking status: Never Smoker ??? Smokeless tobacco: Never Used ??? Alcohol use No Social History Social History Narrative ??? No narrative on file Review of Systems Review of Systems Constitutional: Positive for chills (subjective) and fever (subjective). HENT: Negative for congestion and rhinorrhea. Respiratory: Negative for cough and shortness of breath. Cardiovascular: Negative for chest pain and palpitations. Gastrointestinal: Positive for nausea and vomiting. Negative for abdominal pain, constipation and diarrhea. Genitourinary: Positive for decreased urine volume. Negative for dysuria, frequency and urgency. Musculoskeletal: Positive for back pain (lower) and joint swelling (bilateral ankle). Negative for arthralgias, myalgias and neck pain. Skin: Negative for rash and wound. Neurological: Negative for dizziness, syncope, weakness, light-headedness and headaches. All other systems reviewed and are negative. Physical Exam ED Triage Vitals [03/02/18 1801] Temp Pulse Resp BP SpO2 36.7 ??C (98 ??F) 100 18 149/86 100 % Temp src Heart Rate Source Patient Position BP Location FiO2 (%) Temporal -- -- -- -- Physical Exam Constitutional: She is oriented to person, place, and time. She appears well- developed and well-nourished. No distress. HENT: Head: Normocephalic and atraumatic. Mouth/Throat: Oropharynx is clear and moist. Eyes: Conjunctivae and EOM are normal. Right eye exhibits no discharge. Left eye exhibits no discharge. Neck: Normal range of motion. Neck supple. Cardiovascular: Regular rhythm, normal heart sounds and intact distal pulses. Tachycardia present. Exam reveals no gallop and no friction rub. No murmur heard. Radial pulses strong bilaterally Pulmonary/Chest: Effort normal. No respiratory distress. She has wheezes (diffuse). She has no rales. Right-side coarse breath sounds in upper airway Abdominal: Soft. She exhibits no distension. There is no tenderness. There is no CVA tenderness. Musculoskeletal: Normal range of motion. She exhibits no edema, tenderness or deformity. No lower extremity edema. Bilateral ankle bones clearly present Neurological: She is alert and oriented to person, place, and time. Moving all extremities well Skin: Skin is warm and dry. Capillary refill takes less than 2 seconds. No rash noted. No erythema.No pallor. Psychiatric: She has a normal mood and affect. Her behavior is normal. Nursing note and vitals reviewed. ED Course & MDM Labs Reviewed URINALYSIS AND REFLEX TO MICROSCOPIC AND CULTURE - Abnormal Result Value Color, ur Yellow Clarity, ur Clear Specific gravity, ur 1.020 pH, urine 5.5 Protein, ur Negative Glucose, ur Negative ur ketones Trace Bilirubin, ur Negative ur blood Trace (*) ur urobilinogen 0.2 ur nitrite Negative Leukocyte esterase, ur Negative Narrative: Urine pH is affected by diet, medications, systemic acid-base disturbances, and renal tubular function. pH may affect urinary stone formation. For example, urine pH below 6.0 may help reduce the tendency for calcium phosphate stones and pH greater than 6.0 may reduce the tendency for uric acid stone formation. Source: [employer].Last revised 11-27-2017 CBC WITH AUTO DIFFERENTIAL - Abnormal WBC 12.7 (*) RBC 4.17 Hgb 12.6 Hct 36.0 MCV 86.3 MCH 30.2 MCHC 35.0 RDW CV 12.6 RDW SD 39.8 Platelets 340 MPV 8.8 (*) NRBC Abs 0.00 Narrative: DIFFERENTIAL AUTO - Abnormal Neutrophil absolute 8.8 (*) Immature granulocyte absolute 0.1 Lymphocytes absolute 2.8 Monocyte absolute 0.7 Eosinophils absolute 0.3 Basophils, abs 0.1 Neutrophils 69.2 Immature granulocytes 0.5 Lymphocytes 21.8 Monocytes 5.4 Eosinophils 2.5 Basophils 0.6 Narrative: URINALYSIS, MICROSCOPIC ONLY WBC, ur 0-5 RBC, ur 0-5 Epithelial cells, squamous, ur 1-5 Bacteria, ur Negative Hyaline casts 1-5 Narrative: BASIC METABOLIC PANEL Sodium 141 Potassium 3.6 Chloride 104 CO2 24 BUN 14 Glucose 96 Creatinine 0.61 Calcium 9.1 Anion Gap 13 Narrative: EGFR GFR >60 Narrative: XR Pelvis 1 or 2 Views Final Result 1. NO ACUTE FRACTURE IDENTIFIED. 2. DEGENERATIVE CHANGES. Electronically signed by: Jorge Alberto Looney M.D XR Spine Lumbar 2 or 3 Views Final Result 1. OLD COMPRESSION FRACTURE DEFORMITY OF L3. 2. DEGENERATIVE CHANGES. Electronically signed by: Jorge Alberto Looney M.D BP 118/75 (BP Location: Left arm, Patient Position: Lying) Pulse 79 Temp 36.7 ??C (98 ??F) (Temporal) Resp 18 SpO2 97% Procedures ED Course as of Mar 03 140FriMar 02, [id number] Pre-hypertension/Hypertension: The patient has been informed that they may have pre-hypertension or Hypertension based on a blood pressure reading in the Emergency Department. I recommend that the patient call the primary care provider listed on their discharge instructions or a physician of their choice this week to arrange follow up for further evaluation of possible pre- hypertension or Hypertension. BP: 149/86 [AK] ED Course User Index [AK] Anika Connolly MDM Number of Diagnoses or Management Options Acute midline low back pain without sciatica: Dehydration: Nausea: Diagnosis management comments: DDx: UTI, musculoskeletal back pain, anxiety Amount and/or Complexity of Data Reviewed Clinical lab tests: ordered and reviewed Tests in the radiology section of CPT??: ordered and reviewed Tests in the medicine section of CPT??: ordered and reviewed Acute midline low back pain without sciatica Dehydration Nausea This note is prepared by Anika Connolly, acting as a Scribe for Ashliegh Rose MD Signed by: rocky Garcia, 03/02/2018, 7:14 PM. I, Ashleigh Rose MD, have personally performed the services described in the documentation ,reviewed the documentation, as recorded by the scribe in my presence, and it accurately and completely records my words and actions. Dispo: DISCHARGE Condition: STABLE Ashleigh Rose MD 03/03/18 0141 * Mello Loving RN - 03/02/2018 6:03 PM CDT Pt presents to ED via EMS with c/o UTI symptoms. Patient afebrile, with no reports of pain. Pt reports increased anxiety due to lack of prx. Pt states PCP wanted to remove medications and see pt tolerate. * Olga Kiran RN - 03/02/2018 6:03 PM CDT Bed: ED15 Expected date: 03/02/18 Expected time: 5:57 PM Means of arrival: Comments: [facility] Olga Kiran RN 03/02/18 1803 documented in this encounter Plan of Treatment Not on file documented as of this encounter Procedures Procedure Name Priority Date/Time Associated Diagnosis Comments XR PELVIS 1 OR 2 VIEWS ED 03/02/2018 7:16 PM CDT XR SPINE LUMBAR 2 OR 3 VIEWS ED 03/02/2018 7:16 PM CDT EGFR STAT 03/02/2018 6:41 PM CDT DIFFERENTIAL AUTO STAT 03/02/2018 6:4 1 PM CDT CBC WITH AUTO DIFFERENTIAL STAT 03/02/2018 6:41 PM CDT BASIC METABOLIC PANEL STAT 03/02/2018 6:41 PM CDT URINALYSIS AND REFLEX TO MICROSCOPIC AND CULTURE STAT 03/02/2018 6:17 PM CDT URINALYSIS, MICROSCOPIC ONLY STAT 03/02/2018 6:17 PM CDT DISCHARGE LABORATORY CUMULATIVE REPORT 03/02/2018 12:00 AM CDT documented in this encounter Results * XR Pelvis 1 or 2 Views (03/02/2018 7:16 PM CDT) Anatomical Region Laterality Modality Body, Pelvis N/A Computed Radiogr aphy Impressions 03/02/2018 8:26 PM CDT 1. ??NO ACUTE FRACTURE IDENTIFIED. 2. ??DEGENERATIVE CHANGES. Electronically signed by: Jorge Alberto Looney M.D Narrative 03/02/2018 8:26 PM CDT XR PELVIS 1 OR 2 VIEWS HISTORY: right SI joint pain. TECHNIQUE: Single AP view. COMPARISON: 07/21/2015. FINDINGS: No acute fracture or dislocation identified. ??No change in the sacroiliac joints from the prior study. ??Evidence of some mild degenerative changes hips, some joint space loss. Procedure Note Jorge Alberto Looney MD - 03/02/2018 XR PELVIS 1 OR 2 VIEWS HISTORY: right SI joint pain. TECHNIQUE: Single AP view. COMPARISON: 07/21/2015. FINDINGS: No acute fracture or dislocation identified. No change in the sacroiliac joints from the prior study. Evidence of some mild degenerative changes hips, some joint space loss. IMPRESSION: 1. NO ACUTE FRACTURE IDENTIFIED. 2. DEGENERATIVE CHANGES. Electronically signed by: Jorge Alberto Looney M.D Ashleigh Rose MD IMG XR PROCEDURES Final R esult * XR Spine Lumbar 2 or 3 Views (03/02/2018 7:16 PM CDT) Anatomical Region Laterality Modality Spine N/A Computed Radiogr aphy Impressions 03/02/2018 8:25 PM CDT 1. ??OLD COMPRESSION FRACTURE DEFORMITY OF L3. 2. ??DEGENERATIVE CHANGES. Electronically signed by: Jorge Alberto Looney M.D Narrative 03/02/2018 8:25 PM CDT XR SPINE LUMBAR 2 OR 3 VIEWS HISTORY: lower back pain. TECHNIQUE: AP lateral views. COMPARISON: None available. FINDINGS: A compression deformity seen involving the anterior aspect of the superior endplate of L3. ??This was evident on a prior CT the abdomen and pelvis of 09/17/2013. ??No definite acute fracture identified. ??Degenerative disc disease at L2-L3 and L5-S1. ??Mostly mild spurring. Procedure Note Jorge Alberto Looney MD - 03/02/2018 XR SPINE LUMBAR 2 OR 3 VIEWS HISTORY: lower back pain. TECHNIQUE: AP lateral views. COMPARISON: None available. FINDINGS: A compression deformity seen involving the anterior aspect of the superior endplate of L3. This was evident on a prior CT the abdomen and pelvis of 09/17/2013. No definite acute fracture identified. Degenerative disc disease at L2-L3 and L5-S1. Mostly mild spurring. IMPRESSION: 1. OLD COMPRESSION FRACTURE DEFORMITY OF L3. 2. DEGENERATIVE CHANGES. Electronically signed by: Jorge Alberto Looney M.D Ashleigh Rose MD IMG XR PROCEDURES Final R esult * eGFR (03/02/2018 6:41 PM CDT) eGFR >60 mL/min/1.7 3 m2 [facility] ([facility]) Comment: Interpretive Data Reference Interval Normal ?>/= 90 mL/min/1.73m2 Mildly decreased* ? 60 - 89 mL/min/1.73m2 Mildly to moderately decreased ?45 - 59 mL/min/1.73m2 Moderately to severely decreased ??30 - 44 mL/min/1.73m2 Severely decreased ?15 - 29 mL/min/1.73m2 Kidney Failure ?< 15 ??mL/min/1.73m2 *Relative to young adult level If -Dutch multiply value by 1.16. Estimated glomerular filtration rate is determined by the CKD-EPI equation recommended by the National Kidney Foundation (KDIGO 2012 Clinical Practice Guideline for the Evaluation and Management of Chronic Kidney Disease. Kidney Intnl Suppl Nov 2012;3:1). The CKD-EPI equation should not be used for patients with unstable renal function and has not been validated in children and those over 70. Current interpretive data was last reviewed 2016. Blood specimen (specimen) 03/02/2018 6:41 PM CDT 03/02/2018 6:51 PM CDT Narrative [facility] ([facility]) - 03/02/2018 7:36 PM CDT us Ashleigh Rose MD LAB BLOOD ORDERABLES Rissa l Result [facility] ([facility]) [facility] [place] [address] * (ABNORMAL) Differential, auto (03/02/2018 6:41 PM CDT) Neutrophil abs 8.8(H) 1.7 - 6.5 K/cumm [facility] ([facility]) Imm gran abs 0.1 0.0 - 0.1 K/cumm [facility] ([facility]) Lymphocyte abs 2.8 0.8 - 3.3 K/cumm [facility] ([place]) Monocyte abs 0.7 0.2 - 0.8 K/cumm [facility] ([place]) Eosinophil abs 0.3 0.0 - 0.5 K/cumm [facility] ([place]) Basophil abs 0.1 0.0 - 0.1 K/cumm [facility] ([facility]) Neutrophil pct 69.2 % [facility] ([facility]) Comment: Interpretive Data Percent cell count reference ranges are not reported, since discordance with absolute values may lead to misinterpretation of CBC data. Current Interpretive Data was last revised on 2018. Imm gran pct 0.5 % [facility] ([facility]) Comment: Interpretive Data Percent cell count reference ranges are not reported, since discordance with absolute values may lead to misinterpretation of CBC data. Current Interpretive Data was last revised on 2018. Lymphocyte pct 21.8 % [facility] ([place]) Comment: Interpretive Data Percent cell count reference ranges are not reported, since discordance with absolute values may lead to misinterpretation of CBC data. Current Interpretive Data was last revised on 2018. Monocyte pct 5.4 % [facility] ([facility]) Comment: Interpretive Data Percent cell count reference ranges are not reported, since discordance with absolute values may lead to misinterpretation of CBC data. Current Interpretive Data was last revised on 2018. Eosinophil pct 2.5 % [facility] ([facility]) Comment: Interpretive Data Percent cell count reference ranges are not reported, since discordance with absolute values may lead to misinterpretation of CBC data. Current Interpretive Data was last revised on 2018. Basophil pct 0.6 % [facility] ([facility]) Comment: Interpretive Data Percent cell count reference ranges are not reported, since discordance with absolute values may lead to misinterpretation of CBC data. Current Interpretive Data was last revised on 2018. Blood specimen (specimen) 03/02/2018 6:41 PM CDT 03/02/2018 6:51 PM CDT [facility]ative [facility] - 03/02/2018 6:55 PM CDT us Ashleigh Rose MD LAB BLOOD ORDERABLES Rissa l Result [facility] ([facility]) 1 [facility] [place] [address] * Basic metabolic panel (03/02/2018 6:41 PM CDT) Sodium 141 135 - 145 mmol/L [facility] ([facility] Potassium, pl 3.6 3.3 - 4.9 mmol/L [facility] ([place]) Chloride 104 97 - 110 mmol/L [facility] ([place]) CO2 24 22 - 32 mmol/L [facility] ([place] BUN 14 8 - 25 mg/dL [facility] ([place]) Glucose 96 70 - 199 mg/dL [facility] ([facility] Comment: Interpretive Data Fasting glucose >/= 126 [...] Current interpretive data was last revised 2017. Creatinine 0.61 0.60 - 1.10 mg/dL [facility] ([place]) Calcium 9.1 8.5 - 10.3 mg/dL [facility] ([facility]) Anion gap 13 2 - 15 mmol/L [facility] ([facility]) Blood specimen (specimen) 03/02/2018 6:41 PM CDT 03/02/2018 6:51 PM CDT Narrative [facility] - 03/02/2018 7:36 PM CDT us Ashleigh Rose MD LAB BLOOD ORDERABLES Rissa l Result [facility] ([facility]) 1 [facility] [place] [address] * (ABNORMAL) CBC with auto differential (03/02/2018 6:41 PM CDT) WBC 12.7(H) 3.8 - 9.9 K/cumm [facility] ([place]) RBC 4.17 3.90 - 5.20 M/cumm [facility] ([place]) Hgb 12.6 11.9 - 15.5 g/dL [facility] ([place]) Hct 36.0 35.6 - 45.5 % [facility] ([place]) MCV 86.3 81.3 - 96.4 fL [facility] ([place]) MCH 30.2 27.1 - 33.3 pg [facility] ([place]) MCHC 35.0 32.3 - 35.7 g/dL [facility] ([place]) RDW CV 12.6 11.1 - 14.9 % [facility] ([place]) RDW SD 39.8 35.7 - 48.1 fL [facility] ([place]) Plt 340 150 - 400 K/cumm [facility] ([place]) MPV 8.8(L) 9.1 - 12.3 fL [facility] ([place]) NRBC abs 0.00 0.00 - 0.01 K/cumm [facility] ([place]) Blood specimen (specimen) 03/02/2018 6:41 PM CDT 03/02/2018 6:51 PM CDT Narrative [facility] ([place]) - 03/02/2018 6:55 PM CDT us Ashleigh Rose MD LAB BLOOD ORDERABLES Rissa l Result Performing Organization Address [facility] Co de Phone Number [facility] ([facility]) [address] [place] [address] [place] [place] [address] * Urinalysis, microscopic only (03/02/2018 6:17 PM CDT) WBC, ur 0-5 0 - 5 /HPF [facility] ([facility]) RBC, ur 0-5 0 - 5 /HPF [facility] ([facility]) Epithelial cells, squamous, ur 1-5 0 - 5 /HPF [facility] ([place]) Bacteria, ur Negative [facility] ([place]) Hyaline casts, ur 1-5 0 - 10 /LPF [facility] ([place]) Urine, clean voided 03/02/2018 6:17 PM CDT 03/02/2018 6:22 PM CDT Narrative [facility] ([place]) - 03/02/2018 6:34 PM CDT us Ashleigh Rose MD LAB URINE ORDERABLES Rissa l Result Performing Organization Address [facility] Co de Phone Number [facility] ([place]) [address] [place] [address] [place] [address] * (ABNORMAL) Urinalysis reflex to microscopic and culture Urine, clean voided (03/02/2018 6:17 PM CDT) Color, ur Yellow Yellow [facility] ([place]) Clarity, ur Clear Clear [facility] ([place]) Specific gravity, ur 1.020 1.010 - 1.025 [facility] ([place]) pH, urine 5.5 [facility] ([place]) Protein, ur ql Negative Negative [facility] ([facility]) Glucose, ur ql Negative Negative [facility] ([place]) Ketones, ur Trace Negative [facility] ([place]) Bilirubin, ur Negative Negative [facility] ([place]) Blood, ur Trace(A) Negative [facility] ([place]) Urobilinogen, ur 0.2 <2.0 mg/dL [facility] ([place]) Nitrite, ur Negative Negative [facility] ([place]) Leukocyte esterase, ur Negative Negative [facility] ([place]) Urine, clean voided 03/02/2018 6:17 PM CDT 03/02/2018 6:22 PM CDT Narrative [facility] ([place]) - 03/02/2018 6:34 PM CDT ?? Urine pH is affected by diet, medications, systemic acid-base disturbances, and renal tubular function. ??pH may affect urinary stone formation. ??For example, urine pH below 6.0 may help reduce the tendency for calcium phosphate stones and pH greater than 6.0 may reduce the tendency for uric acid stone formation. Source: [facility] [employer]. Last revised 11-27-2017 Ashleigh Rose MD LAB MICROBIOLOGY - GENERA L ORDERABLES Final Result [facility] ([facility]) 1 [facility] [place] [address] * DISCHARGE LABORATORY CUMULATIVE REPORT (03/02/2018 12:00 AM CDT) Narrative 03/02/2018 12:00 AM CDT Ordered by an unspecified provider. Historical Provider LAB BLOOD ORDERABLES Rissa l Result documented in this encounter Visit Diagnoses Diagnosis Acute midline low back pain without sciatica- Primary Dehydration Nausea Nausea alone documented in this encounter Administered Medications Inactive Administered Medications - up to 3 most recent administrations Medication Order MAR Action Action Date Dose Rate Site ondansetron (ZOFRAN) injection 4 mg 4 mg, intravenous, Once, On Fri03/02/18 at 1830, For 1 dose, Indications: Nausea, VomitingIndications:Nausea, Vomiting Given 03/02/2018 7:37 PM CDT 4 mg sodium chloride 0.9% bolus 1,000 mL 1,000 mL, intravenous, at 1,000 mL/hr, Administer over 1 Hours, Once, On Fri03/02/18 at 1830, For 1 dose New Bag 03/02/2018 7:36 PM CDT 1,000 mL 100 0 mL/hr documented in this encounter Active and Recently Administered Medications Times are shown in CDT. Scheduled Medication Order 02/28/2018 03/01/2018 03/02/2018 ondansetron (ZOFRAN) injection 4 mg (COMPLETED) 4 mg, intravenous, Once, On Fri03/02/18 at 1830, For 1 dose, Indications: Nausea, Vomiting 193 (Given - Provid er: Alda Yeboah RN - Comment: Pt in radiology.) sodium chloride 0.9% bolus 1,000 mL (COMPLETED) 1,000 mL, intravenous, at 1,000 mL/hr, Administer over 1 Hours, Once, On Fri03/02/18 at 1830, For 1 dose 193 (New Bag - Prov ider: Alda Yeboah RN - Comment: switching shifts and pt in radiology)2107 (Stopped - Provider: Alda Yeboah RN) documented in this encounter Care Teams Hand Icer Relationship Specialty Start Date End Date Jemima Go MD [address] [place] [address] PCP - General 03/02/18 11/05/21 documented as of this encounter
--- OUTSIDE RECORDS SUMMARY | 2024-11-13 02:18 | XMS_ITS | Encounter Summary ---
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 Gender Identity Not on file Sexual Orientation Not on file documented as of this encounter Medications at Time of Discharge ergocalciferol (VITAMIN D) 50,000 unit capsule Take 1 capsule (50,000 Units total) by mouth 03/04/2018 albuterol HFA (Ventolin HFA) 90 mcg/actuation inhaler 12/18/2017 2 citalopram (CeleXA) 10 mg tablet Take 10 mg by mouth daily 03/04/2018 1 omeprazole (PriLOSEC) 20 mg capsule Take 1 [...] on filedocumented in this encounter Care Teams Forestry Support Specialist Relationship Specialty Start Date End Date Jemima Go MD [address] [place] [address] PCP - General 03/02/18 11/05/21 documented as of this encounter
--- OUTSIDE RECORDS SUMMARY | 2024-11-13 02:18 | XMS_ITS | Encounter Summary ---
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 Hospital Encounter [facility] Mata Coffman MD [address] [place] [address] [place] [id number] Abdominal tenderness, periumbilical; Weight loss; Diarrhea Social History Tobacco Use Types Packs/Day Years Used Date Smoking Tobacco: Never Assessed Comments Unknown Sex and Gender Information Value Date Recorded Sex Assigned at Not on file 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
--- OUTSIDE RECORDS SUMMARY | 2024-11-13 02:18 | XMS_ITS | Encounter Summary ---
Author Organization [facility] Healthcare Address [address] [place] [address] Care Team Providers Care Criminal Defense Lawyer Name Role Phone Unavailable Primary Care Provider Unavailabl e Encounter Details Date Type Department Care Team (Late st Contact Info) Description 07/21/2015 2:00 PM CDT - 07/21/2015 11:59 PM CDT Hospital Encounter [facility] Ernesto Moya MD [address] [place] [id number] Abdominal pain of other specified site Social History Tobacco Use Types Packs/Day Years Used Date Smoking Tobacco: Never Assessed Comments Unknown Sex and Gender Information Value Date Recorded Sex Assigned at Not on file 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 Gender Identity Not on file Sexual Orientation Not on file documented as of this encounter Plan of Treatment Not on file documented as of this encounter Procedures Procedure Name Priority Date/Time Associated Diagnosis Comments ABDOMINAL RADIOGRAPHY, FRONTAL (AP) Routine 07/21/2015 2:29 PM CDT XR PELVIS 1 OR 2 VIEWS Routine 07/21/2015 2:26 PM CDT documented in this encounter Results * ABDOMINAL RADIOGRAPHY, FRONTAL (AP) (07/21/2015 2:29 PM CDT) Anatomical Region Laterality Modality N/A Radiographic Avis ging 07/21/2015 2:29 PM CDT Narrative 07/24/2015 9:32 AM CDT XR Abd 1 View - AP ?[id number] ??Acc#: ??[id number] XR Pelvis 1-2 Views ?? [id number] ??Acc#: ??[id number] DATE OF EXAM: ??Sep ??2014 CLINICAL HISTORY: Upper abdominal pain after eating. RESULT: AP views of the abdomen and pelvis were obtained. The bowel gas pattern is nonobstructive. ??No pathologic calcifications are seen. Free air cannot be excluded on AP views of the abdomen. IMPRESSION: 1. NONOBSTRUCTIVE BOWEL GAS PATTERN. Interpreting Physician: ??SPENSER COLBERT M.D. ??Read on: ??Sep ??2014 4:05P Transcribed by: ??martha ?? On: Sep ??4 2014 ??4:05P Approved Electronically by: ??SPENSER COLBERT M.D. ??on: ??Sep ??7 2014 9:32A Attending: ??ERNESTO MAYORGA Requesting: ??ERNESTO MAYORGA Requesting Fax: ??-- Attending Fax: ??-- Attending ID: ??[id number] Requesting ID: ??[id number] Report To 1 ID: ??[id number] Report To 1 Name: ??ERNESTO MAYORGA Report To 1 FAX: ??-- NextGen Order #: Procedure Note Provider, MD Karla - 03/09/2017 XR Abd 1 [place] [id number] Acc#: [id number] XR Pelvis 1-2 Views [id number] Acc#: [id number] DATE OF EXAM: Jul 21 2015 CLINICAL HISTORY: Upper abdominal pain after eating. RESULT: AP views of the abdomen and pelvis were obtained. The bowel gas patternis nonobstructive. No pathologic calcifications are seen. Free air cannotbe excluded on AP views of the abdomen. IMPRESSION: 1. NONOBSTRUCTIVE BOWEL GAS PATTERN. Interpreting Physician: SPENSER COLBERT M.D. Read on: Jul 21 20154:05P Transcribed by: martha On: Jul 21 2015 4:05P Approved Electronically by: SPENSER COLBERT M.D. on: Jul 24 20159:32A Attending: ERNESTO MAYORGA Requesting: ERNESTO MAYORGA Requesting Fax: -- Attending Fax: -- Attending ID: [id number] Requesting ID: [id number] Report To 1 ID: [id number] Report To 1 Name: ERNESTO MAYORGA Report To 1 FAX: -- NextGen Order #: us Historical Provider MD BAILEY XR PROCEDURES Final R esult * XR Pelvis (RadLink) 1 View (07/21/2015 2:26 PM CDT) Anatomical Region Laterality Modality Body, Pelvis N/A Radiographic Avis ging 07/21/2015 2:26 PM CDT Historical Provider MD BAILEY XR PROCEDURES Final R esult documented in this encounter Visit Diagnoses Diagnosis Abdominal pain of other specified site documented in this encounter
== END 2024-11-06 03:21 | disposition home or self-care (01) ==
PROVIDERS: Emergency Provider Emergency Medicine; PCP Hospitalist
DX: F41.0 Panic disorder [episodic paroxysmal anxiety] (principal); J18.9 Pneumonia, unspecified organism; F41.8 Other specified anxiety disorders; J45.909 Unspecified asthma, uncomplicated; Z20.822 Contact with and (suspected) exposure to COVID-19
CPT/HCPCS: 71045; 87637; 93005; 96374; 99284; A9270; J3360

== ENCOUNTER 2024-11-29 07:53 | Emergency (ER) | payer BC, SELFPAY ==
[2024-11-29] VITALS (17 sets, daily range): BP systolic 114–159; BP diastolic 65–90; PULSE 84–104; RESP 12–20; TEMP 36.8; O2SAT 91–100
--- NOTE | ~2024-11-29 | XR_ITS ---
XR chest 2V Ordering provider: Pantera Olivas MD History: 49 years Female with . SOB, COUGH HX PNUEMONIA 3 WEEKS AGO . Comparison: November 06, 2024 FINDINGS: MEDIASTINUM: The cardiac silhouette is not enlarged. LUNGS: No infiltrates, effusions or pneumothorax. OTHER: No free air under the diaphragm. IMPRESSION: No acute cardiopulmonary pathology. Reviewed, dictated and finalized at location A. [facility]
--- NOTE | 2024-11-29 08:01 | ECG_ITS ---
Test Date: 2024-11-29 08:07:15 Measurements Intervals [place] Rate: 93 P: 72 WY: 133 QRS: 49 QRSD: 97 T: 50 QT: 353 QTc: 440 Interpretive Statements SINUS RHYTHM POSSIBLE LEFT ATRIAL ENLARGEMENT [-0.1mV P-WAVE IN V1/V2] Compared to ECG 11/06/2024 01:43:45 No significant changes Electronically Signed On 11-29-2024 21:52:04 FISHER MUSSEL by Kelli Monahan M.D.
[2024-11-29 08:13] LABS: Hematocrit 43.4 % (37.0-47.0); Hemoglobin 14.8 g/dL (12.0-15.0); Mean Corpuscular HGB Conc 34.1 g/dl (32-36); Mean Corpuscular Hemoglobin 30.1 pg (26-34); Mean Corpuscular Volume 88.2 fl (80-100); Mean Platelet Volume 8.8 fl (7.4-10.4); Platelet Count Result 384 k/mm3 (150-375); Red Blood Count 4.92 M/mm3 (4.2-5.4); Red Cell Distribution Width 13.4 % (11.5-14.5); White Blood Count 18.3 K/mm3 (4.5-10.0)
[2024-11-29 08:31] LABS: Albumin Level 4.5 g/dL (3.5-5.1); Alkaline Phosphatase 67 U/L (38-126); Anion Gap 11 mmol/L (4-12); Aspartate Amino Transferase 27 U/L (14-36); Bilirubin,Total 0.5 mg/dL (0.2-1.3); Blood Urea Nitrogen 9 mg/dL (7-17); Calcium 9.7 mg/dL (8.4-10.2); Carbon Dioxide 18 mmol/L (22-30); Chloride 108 mmol/L (98-107); Estimated CRCL calculation 150 ml/min; Estimated Glomerular Filt Rate > 60; Glucose 127 mg/dL (65-110); Potassium 3.6 mmol/L (3.4-5.0); Sodium 137 mmol/L (137-145)
--- NOTE | 2024-11-29 08:44 | ED_ITS ---
HPI - SOB/Dyspnea General Chief Complaint: Shortness of Breath/Dyspnea Stated Complaint: SOB anxiety Time Seen by Provider: 11/29/24 08:44 Source: patient Mode of arrival: ambulatory Limitations: no limitations History of Present Illness HPI Narrative: 49 years old white female drove herself to the emergency room complaining of shortness of breath and coughing for the last 3 days, history of pneumonia 3 weeks ago. History of asthma, does not smoke cigarettes or drinking alcohol, uses marijuana occasionally. 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 Related Data Home Medications ?Medication ?Instructions ?Recorded ?Confirmed ?Last Taken ?Type buspirone 5 mg tablet 5 mg PO DAILY 11/17/20 08/24/24 Unknown History albuterol sulfate 90 mcg/actuation 2 puff inhalation Q6H PRN 04/04/21 08/24/24 Unknown History aerosol inhaler Shortness Of Breath Or Wheezing budesonide-formoterol HFA 80 1 inh inhalation DAILY 10/29/21 08/24/24 Unknown History mcg-4.5 mcg/actuation aerosol inhaler (Symbicort) citalopram 40 mg tablet 40 mg PO DAILY 10/29/21 08/24/24 Unknown History ergocalciferol (vitamin D2) 1,250 1,250 mcg PO [id number] 10/29/21 08/24/24 Unknown History mcg (50,000 unit) capsule (Vitamin D2) Allergies Allergy/AdvReac Type Severity Reaction Status Date / Time Penicillins Allergy Intermediate Swelling Verified 11/29/24 07:54 Review of Systems 2 Review of Systems: All systems reviewed & are unremarkable except as noted in HPI and below PMFSH Past Medical History Medical History Fracture of left foot Kidney stone Panic attacks Anxiety and depression Nasal polyps Rheumatoid arthritis Asthma Surgical History Surgical History S/P left knee arthroscopy H/O tubal ligation H/O: hysterectomy Family History Family History Mother Family history of diabetes mellitus in first degree relative Grandparent Diabetes mellitus Social History Social History Smoking status: Never smoker Alcohol intake: never Gender identity (if verbalized by the patient): Female Exam 2 Narrative: General appearance: Well-developed, well-nourished Skin: Normal color Head: Normocephalic, nontraumatic Eyes: Clear conjunctiva ENT: Oropharynx normal, ears normal, nose normal Neck: Supple, nontender Chest and respiratory: Airway patent, no respiratory distress, no accessory muscle use widespread wheezing bilaterally mainly expiratory. Heart: Regular rate/rhythm Musculoskeletal: Normal range of motion, nontender back Neurologic: Alert and oriented ?3 Course Vital Signs Vital signs: Vital Signs Temperature 36.8 C 11/29/24 07:57 Pulse Rate 98 11/29/24 07:57 Respiratory Rate 13 11/29/24 07:57 Blood Pressure 141/90 H 11/29/24 07:57 Pulse Oximetry 96 11/29/24 07:57 Oxygen Delivery Room Air 11/29/24 07:57 Temperature 36.8 C 11/29/24 07:57 Pulse Rate 90 11/29/24 10:02 Respiratory Rate 13 11/29/24 10:02 Blood Pressure 139/65 11/29/24 10:02 Pulse Oximetry 100 11/29/24 10:02 Oxygen Delivery Room Air 11/29/24 07:57 MDM - SOB/Dyspnea MDM Narrative Medical decision making narrative: Patient came to the ED with shortness of breath and coughing Vital signs are stable Physical examination consistent with wheezing bilaterally Differential diagnosis include asthma exacerbation, respiratory viral infection, pneumonia Blood workup today includes CBC, CMP showed WBC of 18.3 patient started on prednisone 2 days ago, Respiratory panel showed positive influenza a Chest x-ray showed no acute abnormalities Medical Records Attestation: I reviewed the patient's medical records. Lab Data Attestation: I reviewed the patient's lab results. 11/29/24 08:08 11/29/24 08:08 Labs: Lab Results 11/29/24 11/29/24 Range/Units 08:08 09:14 WBC 18.3 H (4.5-10.0) K/mm3 RBC 4.92 (4.2-5.4) M/mm3 Hgb 14.8 (12.0-15.0) g/dL Hct 43.4 (37.0-47.0) % MCV 88.2 (80-100) fl MCH 30.1 (26-34) pg MCHC 34.1 (32-36) g/dl RDW 13.4 (11.5-14.5) % Plt Count 384 H (150-375) k/mm3 MPV 8.8 (7.4-10.4) fl Immature Gran % (Auto) Not Reportable Neut % (Auto) Not Reportable Lymph % (Auto) Not Reportable [place] % (Auto) Not Reportable Eos % (Auto) Not Reportable Baso % (Auto) Not Reportable Lymph # (Auto) Not Reportable [place] # (Auto) Not Reportable Eos # (Auto) Not Reportable Baso # (Auto) Not Reportable Abs Immat Gran (auto) Not Reportable Absolute Neuts (auto) Not Reportable Absolute Nucleated RBC Not Reportable Total Counted 100 Neutrophils % (Manual) 70 (46-73) % Band Neutrophils % 5 (0-6) % Lymphocytes % (Manual) 18 (18-44) % Monocytes % (Manual) 7 (3-9) % Nucleated RBC % Not Reportable Abs Neuts (Manual) 13.72 H (1.7-7.2) K/mm3 Abs Lymphs (Manual) 3.29 (1.1-4.5) K/mm3 Abs Monocytes (Manual) 1.28 H (0.1-0.90) K/mm3 Platelet Estimate Increased (Adequate) Schistocytes None seen Sodium 137 (137-145) mmol/L Potassium 3.6 (3.4-5.0) mmol/L Chloride 108 H (98-107) mmol/L Carbon Dioxide 18 L (22-30) mmol/L Anion Gap 11 (4-12) mmol/L BUN 9 D (7-17) mg/dL Creatinine 0.49 L (0.7-1.0) mg/dL Estim Creat Clear Calc 150 ml/min Estimated GFR > 60 (59 - ) Glucose 127 H (65-110) mg/dL Calcium 9.7 (8.4-10.2) mg/dL Total Bilirubin 0.5 (0.2-1.3) mg/dL AST 27 (14-36) U/L ALT 33 (6-35) U/L Alkaline Phosphatase 67 (38-126) U/L Total Protein 8.0 (6.3-8.2) g/dL Albumin 4.5 (3.5-5.1) g/dL Influenza A (RT-PCR) Positive A (Negative) Influenza B (RT-PCR) Negative (Negative) RSV (RT-PCR) Negative (Negative) SARS-CoV-2 RNA (RT-PCR) Negative (Negative) Imaging Data Radiologist's impression: Impressions Chest X-Ray 11/29/24 08:22 IMPRESSION: No acute cardiopulmonary pathology. ECG Data EKG #1: Attestation: I personally reviewed and interpreted this ECG as follows: ECG completion date: 11/29/24 Interpretation: Normal sinus rhythm at 93 beats per minute, left atrial enlargement, no significant changes compared to EKG on November 06, 2024 Critical Care Time Critical Care Time Critical Care Time: No Discharge Plan Discharge Clinical Impression: Influenza A, Asthma Patient Disposition: Home, Self-Care Condition: Stable Instructions: Asthma (ED), Influenza (ED) Additional Instructions: Return if symptoms are worsening , call your family physician for appointment, take Tylenol as as needed for aches and pain, continue home medications. Patient Language: Chinese Prescriptions: New oseltamivir [Tamiflu] 75 mg capsule 75 mg PO BID Qty: 10 0RF prednisone 20 mg tablet 40 mg PO DAILY 5 Days Qty: 10 0RF No Action citalopram 40 mg tablet 40 mg PO DAILY budesonide-formoterol [Symbicort] 80-4.5 mcg/actuation HFA aerosol inhaler 1 inh INHALATION DAILY ergocalciferol (vitamin D2) [Vitamin D2] 1,250 mcg (50,000 unit) Capsule 1,250 mcg PO [id number] albuterol sulfate [ProAir HFA] 90 mcg/actuation HFA aerosol inhaler 2 puff INHALATION Q4-6H PRN (Reason: shortness of breath or wheezing) Qty: 18 0RF albuterol sulfate 90 mcg/actuation HFA aerosol inhaler 2 puff INHALATION Q6H PRN (Reason: Shortness Of Breath Or Wheezing) omeprazole 40 mg capsule,delayed release(DR/EC) 40 mg PO DAILY Qty: 30 6RF buspirone 5 mg tablet 5 mg PO DAILY levofloxacin 500 mg tablet 500 mg PO DAILY Qty: 10 0RF Follow-up/Referrals: Kirsty,MD Pillo [Primary Care Provider] - Stand Alone Forms: Work/School Release IP
[2024-11-29 08:50] LABS: Alanine Aminotransferase 33 U/L (6-35)
[2024-11-29 08:58] LABS: Band Neutrophils Percent 5 % (0-6); Neutrophils Absolute Manual 13.72 K/mm3 (1.7-7.2); Neutrophils Percent Manual 70 % (46-73); Platelet Estimate Increased (Adequate); Total Cells Counted 100
[2024-11-29 08:59] LABS: Lymphocytes Absolute Manual 3.29 K/mm3 (1.1-4.5); Lymphocytes Percent Manual 18 % (18-44); Monocytes Absolute Manual 1.28 K/mm3 (0.1-0.90); Monocytes Percent Manual 7 % (3-9)
[2024-11-29 09:00] LABS: Schistocytes None Seen
[2024-11-29] MEDS: predniSONE 20 MG TABLET 60 MG PO (09:11)
[2024-11-29] MEDS: ALBUTEROL SULFATE NEB 2.5 MG/3 ML INH 10 MG INHALATION (09:28)
[2024-11-29 09:53] LABS: Influenza A QL RT-PCR Positive (Negative); Influenza B QL RT-PCR Negative (Negative); RSV RNA, RT-PCR Negative (Negative); SARS-CoV-2 RNA PCR Negative (Negative)
== END 2024-11-29 10:54 | disposition home or self-care (01) ==
PROVIDERS: Emergency Provider Emergency Medicine; PCP Hospitalist
DX: J10.1 Influenza due to other identified influenza virus with other respiratory manifestations (principal); J45.909 Unspecified asthma, uncomplicated; F41.8 Other specified anxiety disorders; M06.9 Rheumatoid arthritis, unspecified; Z20.822 Contact with and (suspected) exposure to COVID-19
CPT/HCPCS: 36415; 71046; 80053; 85025; 87637; 93005; 94640; 99284; J7512